=== PATIENT | male | born 1985 | race Hispanic/Latino ===

== ENCOUNTER 2018-03-08 10:03 | Inpatient (IN) | payer OTHER ==
[~2018-03-08] VITALS: Ht 160 cm; Wt 48.9 kg
[2018-03-08 10:49] LABS: BASOPHILS % (AUTO) 0.2 % (0.0-5.0); EOSINOPHILS % (AUTO) 4.8 % (0.0-8.0); HEMATOCRIT 45.1 % (42-54); LYMPHOCYTES % (AUTO) 22.4 % (21.0-51.0); MEAN CORPUSCULAR HEMOGLOBIN 30.5 pg (27.0-33.0); MEAN CORPUSCULAR HGB CONC 34.3 g/dL (32.0-36.0); MONOCYTES % (AUTO) 6.1 % (3.0-13.0); NEUTROPHILS % (AUTO) 66.5 % (40.0-77.0); PLATELET COUNT (AUTO) 213 K/uL (130-400); RED BLOOD CELL COUNT(AUTO) 5.07 MIL/uL (4.50-6.20); RED CELL DISTRIBUTION WIDTH 12.7 % (11.0-15.5); WHITE BLOOD COUNT (AUTO) 8.2 K/uL (4.8-10.8)
[2018-03-08 10:58] LABS: BILIRUBIN,TOTAL 0.3 mg/dL (0.2-1.0); CREATININE 0.7 mg/dL (0.5-1.5); MAGNESIUM 1.3 mg/dL (1.80-2.40); TOTAL PROTEIN, SERUM 6.1 g/dL (6.0-8.3)
[2018-03-08 11:01] LABS: INR 0.94 (0.85-1.15); PARTIAL THROMBOPLASTIN TIME 32.6 SEC (26.3-35.5); PROTHROMBIN TIME 9.9 SEC (9.6-11.6)
[2018-03-08 11:02] LABS: POTASSIUM 1.5 mmol/L (3.5-5.1)
[2018-03-08] MEDS ORDERED: ONDANSETRON HCL 4 MG/2 ML VIAL ONE (11:06)
[2018-03-08] MEDS ORDERED: POTASSIUM BICARB/CIT AC 25 MEQ TABLET.EFF ONE (11:06)
[2018-03-08] MEDS ORDERED: MAGNESIUM 2GM PREMIX 50ML 50 ML IV ONE (11:10)
[2018-03-08 11:16] LABS: AMPHET/METH SCREEN,URINE NEGATIVE (NEGATIVE); BARBITURATE SCREEN, URINE NEGATIVE (NEGATIVE); BENZODIAZEPINES SCREEN,URINE NEGATIVE (NEGATIVE); CANNABINOID SCREEN,URINE POSITIVE (NEGATIVE); COCAINE SCREEN,URINE NEGATIVE (NEGATIVE); OPIATE SCREEN,URINE NEGATIVE (NEGATIVE); PHENCYCLIDINE SCREEN,URINE NEGATIVE (NEGATIVE)
[2018-03-08 11:23] LABS: APPEARANCE,URINE Clear (CLEAR); BILIRUBIN,URINE Negative (NEGATIVE); COLOR,URINE Yellow (YELLOW); GLUCOSE, URINE (UA) 500 mg/dL (NEGATIVE); KETONES,URINE Negative (NEGATIVE); LEUKOCYTE ESTERASE ,URINE Negative (NEGATIVE); NITRATE,URINE Negative (NEGATIVE); OCCULT BLOOD,URINE Negative (NEGATIVE); PROTEIN,URINE Negative (NEGATIVE)
[2018-03-08 11:44] LABS: BACTERIA,URINE Rare /HPF (None Seen); RBC,URINE None Seen /HPF (0-1); SQUAMOUS EPITHELIAL CELL,UR Rare /HPF (0-2)
[2018-03-08 11:47] LABS: ERYTHROCYTE SEDIMENTATION RATE 2 MM/HR (0-15)
[2018-03-08] MEDS ORDERED: POTASSIUM CHLORIDE 40 MEQ in SODIUM CHLORIDE 0.9% 1000ML 1,000 ML IV SCH (13:00)
[2018-03-08 14:00] VITALS: BP 127/65
[2018-03-08] MEDS ORDERED: POTASSIUM BICARB/CIT AC 25 MEQ TABLET.EFF PO SCH (15:15)
[2018-03-08] MEDS ORDERED: TEMAZEPAM 15 MG CAPSULE PO PRN (15:30)
[2018-03-08] MEDS: POTASSIUM BICARB/CIT AC 25 MEQ TABLET.EFF PO SCH ×2 (15:30→20:32)
[2018-03-08 16:47] VITALS: BP 134/76
[2018-03-08] MEDS ORDERED: POTASSIUM BICARB/CIT AC 25 MEQ TABLET.EFF PO ONE (17:30)
[2018-03-08 20:00] VITALS: BP 128/85
== END 2018-03-08 20:40 | disposition left against medical advice (07) | DRG 641 ==
LOC: EDH 10:03 → EDHIP 10:04 → 3AH 14:03
PROVIDERS: ADMIT Internal Medicine; ATTEND Internal Medicine
DX: E87.6 Hypokalemia (principal); F12.90 Cannabis use, unspecified, uncomplicated; E83.42 Hypomagnesemia; F19.10 Other psychoactive substance abuse, uncomplicated; F17.290 Nicotine dependence, other tobacco product, uncomplicated; Z71.89 Other specified counseling; Z83.3 Family history of diabetes mellitus
CPT/HCPCS: 36415; 72148; 80053; 80305; 81001; 83735; 84132; 85025; 85610; 85651; 85730; 86140; 99291; J2405; J3475; J3480; J7030

== ENCOUNTER 2018-09-09 22:52 | Emergency (ER) | payer SELFPAY ==
[2018-09-09] MEDS ORDERED: ONDANSETRON HCL 4 MG/2 ML VIAL ONE (23:19)
[2018-09-09] MEDS ORDERED: FAMOTIDINE/PF 20 MG/2 ML VIAL IV ONE (23:20)
[2018-09-09] MEDS ORDERED: DiphenhydrAMINE HCL 50 MG/ML VIAL ONE (23:31)
[2018-09-09] MEDS ORDERED: HALOPERIDOL LACTATE 5 MG/ML VIAL ONE (23:32)
[2018-09-09 23:44] LABS: BILIRUBIN,URINE Negative (NEGATIVE); COLOR,URINE Yellow (YELLOW); GLUCOSE, URINE (UA) Negative (NEGATIVE); KETONES,URINE 40 mg/dL (NEGATIVE); LEUKOCYTE ESTERASE ,URINE Moderate (NEGATIVE); NITRATE,URINE Negative (NEGATIVE); OCCULT BLOOD,URINE Negative (NEGATIVE); PH,URINE 7.5 (5.0-8.0); PROTEIN,URINE Negative (NEGATIVE)
[2018-09-09 23:46] LABS: BASOPHILS % (AUTO) 0.3 % (0.0-5.0); EOSINOPHILS % (AUTO) 0.5 % (0.0-8.0); LYMPHOCYTES % (AUTO) 17.5 % (21.0-51.0); MEAN CORPUSCULAR HEMOGLOBIN 29.7 pg (27.0-33.0); MEAN CORPUSCULAR HGB CONC 33.7 g/dL (32.0-36.0); MEAN CORPUSCULAR VOLUME 88.1 fL (79-99); MONOCYTES % (AUTO) 2.4 % (3.0-13.0); NEUTROPHILS % (AUTO) 79.3 % (40.0-77.0); PLATELET COUNT (AUTO) 254 K/uL (130-400); RED BLOOD CELL COUNT(AUTO) 4.99 MIL/uL (4.50-6.20); RED CELL DISTRIBUTION WIDTH 12.6 % (11.0-15.5); WHITE BLOOD COUNT (AUTO) 7.2 K/uL (4.8-10.8)
[2018-09-09 23:47] LABS: CARBON DIOXIDE 30 mmol/L (21-32); CHLORIDE 103 mmol/L (101-111); CREATININE 0.6 mg/dL (0.5-1.5); GLOMERULAR FILTR. RATE CALC 166 mL/min (>60); GLUCOSE,RANDOM 112 mg/dL (70-105); POTASSIUM 3.5 mmol/L (3.5-5.1); SODIUM SERUM 140 mmol/L (136-145); UREA NITROGEN, BLOOD 12 mg/dL (7-18)
[2018-09-09 23:51] LABS: ALANINE AMINOTRANSFERASE 32 U/L (12-78); ALBUMIN 3.6 g/dL (3.5-5.0); ALCOHOL, BLOOD < 3 mg/dL (0-10); ASPARTATE AMINOTRANSFERASE 27 U/L (10-37); BILIRUBIN,TOTAL 0.5 mg/dL (0.2-1.0); LIPASE 61 U/L (114-286); TOTAL PROTEIN, SERUM 6.3 g/dL (6.0-8.3)
[2018-09-09 23:52] LABS: AMPHET/METH SCREEN,URINE NEGATIVE (NEGATIVE); BARBITURATE SCREEN, URINE NEGATIVE (NEGATIVE); BENZODIAZEPINES SCREEN,URINE NEGATIVE (NEGATIVE); CANNABINOID SCREEN,URINE POSITIVE (NEGATIVE); COCAINE SCREEN,URINE NEGATIVE (NEGATIVE); OPIATE SCREEN,URINE NEGATIVE (NEGATIVE); PHENCYCLIDINE SCREEN,URINE NEGATIVE (NEGATIVE)
[2018-09-10 00:04] LABS: APPEARANCE,URINE CLOUDY (CLEAR)
[2018-09-10 00:05] LABS: AMORPHOUS SEDIMENT,UR Many /LPF (None Seen); BACTERIA,URINE Rare /HPF (None Seen); RBC,URINE 0-1 /HPF (0-1); SQUAMOUS EPITHELIAL CELL,UR Rare /HPF (0-2)
== END 2018-09-10 03:29 | disposition home or self-care (01) ==
LOC: EDH 22:52
DX: G43.A0 Cyclical vomiting, in migraine, not intractable (principal); E86.0 Dehydration; G89.29 Other chronic pain; R10.13 Epigastric pain; F12.10 Cannabis abuse, uncomplicated; Z72.0 Tobacco use
CPT/HCPCS: 36415; 80053; 80305; 81001; 83690; 85025; 93005; 96361; 96372; 96374; 96375; 99284; G0480; J1200; J1630; J2405; J3490

== ENCOUNTER 2019-11-11 08:24 | Emergency (ER) | payer SELFPAY ==
[2019-11-11 08:44] LABS: BASOPHILS % (AUTO) 0.2 % (0.0-5.0); EOSINOPHILS % (AUTO) 1.2 % (0.0-8.0); HEMATOCRIT 46.5 % (42-54); LYMPHOCYTES % (AUTO) 38.7 % (21.0-51.0); MEAN CORPUSCULAR HEMOGLOBIN 28.7 pg (27.0-33.0); MEAN CORPUSCULAR HGB CONC 34.6 g/dL (32.0-36.0); MEAN CORPUSCULAR VOLUME 82.9 fL (79-99); MONOCYTES % (AUTO) 11.8 % (3.0-13.0); NEUTROPHILS % (AUTO) 47.9 % (40.0-77.0); PLATELET COUNT (AUTO) 275 K/uL (130-400); RED BLOOD CELL COUNT(AUTO) 5.61 MIL/uL (4.50-6.20); RED CELL DISTRIBUTION WIDTH 11.9 % (11.0-15.5); WHITE BLOOD COUNT (AUTO) 5.1 K/uL (4.8-10.8)
[2019-11-11] MEDS ORDERED: MAG HYDROX/AL HYDROX/SIMETH ES 30 ML SUSP UDCUP ONE (08:49)
[2019-11-11] MEDS ORDERED: LIDOCAINE HCL 2% VISCOUS 15 ML UDCUP ONE (08:49)
[2019-11-11 08:52] LABS: CREATININE 0.5 mg/dL (0.5-1.5); POTASSIUM 3.5 mmol/L (3.5-5.1)
[2019-11-11 08:59] LABS: BILIRUBIN,TOTAL 0.6 mg/dL (0.2-1.0)
[2019-11-11 09:04] LABS: APPEARANCE,URINE Clear (CLEAR); BILIRUBIN,URINE Negative (NEGATIVE); COLOR,URINE Yellow (YELLOW); GLUCOSE, URINE (UA) Negative (NEGATIVE); KETONES,URINE Negative (NEGATIVE); LEUKOCYTE ESTERASE ,URINE Trace (NEGATIVE); NITRATE,URINE Negative (NEGATIVE); OCCULT BLOOD,URINE Negative (NEGATIVE); PH,URINE 7.5 (5.0-8.0); PROTEIN,URINE Negative (NEGATIVE)
[2019-11-11 09:11] LABS: AMPHET/METH SCREEN,URINE NEGATIVE (NEGATIVE); BARBITURATE SCREEN, URINE NEGATIVE (NEGATIVE); BENZODIAZEPINES SCREEN,URINE NEGATIVE (NEGATIVE); CANNABINOID SCREEN,URINE POSITIVE (NEGATIVE); COCAINE SCREEN,URINE NEGATIVE (NEGATIVE); OPIATE SCREEN,URINE NEGATIVE (NEGATIVE); PHENCYCLIDINE SCREEN,URINE NEGATIVE (NEGATIVE)
[2019-11-11 09:21] LABS: BACTERIA,URINE None Seen /HPF (None Seen); RBC,URINE None Seen /HPF (0-1); SQUAMOUS EPITHELIAL CELL,UR None Seen /HPF (0-2); WBC,URINE 0-1 /HPF (0-1)
== END 2019-11-11 10:45 | disposition home or self-care (01) ==
LOC: EDH 08:24
DX: G89.29 Other chronic pain (principal); R10.13 Epigastric pain; R11.2 Nausea with vomiting, unspecified; F12.10 Cannabis abuse, uncomplicated
CPT/HCPCS: 36415; 76705; 80053; 80305; 81001; 82150; 83690; 85025; 99284; G0480

== ENCOUNTER 2021-05-06 13:12 | Inpatient (IN) | payer SELFPAY ==
[~2021-05-06] VITALS: Ht 160 cm; Wt 45.4 kg
[2021-05-06] MEDS ORDERED: ZOSYN 3.375GM+NS 50ML 50 ML IV STA (13:21)
[2021-05-06] MEDS ORDERED: [UNRECOGNIZED DRUG - OTHER] IV ONE (13:30)
[2021-05-06] MEDS ORDERED: ASPIRIN 325MG TAB PO ONE (13:30)
[2021-05-06] MEDS ORDERED: ACETAMINOPHEN 500 MG TABLET PO ONE (13:30)
[2021-05-06 13:42] LABS: BASOPHILS % (AUTO) 0.1 % (0.0-5.0); EOSINOPHILS % (AUTO) 0.2 % (0.0-8.0); HEMATOCRIT 48.1 % (42-54); LYMPHOCYTES % (AUTO) 19.8 % (21.0-51.0); MEAN CORPUSCULAR HGB CONC 34.1 g/dL (32.0-36.0); MEAN CORPUSCULAR VOLUME 85.1 fL (79-99); MONOCYTES % (AUTO) 10.6 % (3.0-13.0); NEUTROPHILS % (AUTO) 69.1 % (40.0-77.0); PLATELET COUNT (AUTO) 280 K/uL (130-400); RED BLOOD CELL COUNT(AUTO) 5.65 MIL/uL (4.50-6.20); RED CELL DISTRIBUTION WIDTH 12.9 % (11.0-15.5); WHITE BLOOD COUNT (AUTO) 8.4 K/uL (4.8-10.8)
[2021-05-06] MEDS ORDERED: 0.9%NACL 50ML 50 ML IV ONE (13:43)
[2021-05-06 13:57] LABS: INR 1.2 (0.85-1.15); PROTHROMBIN TIME 12.9 SEC (9.6-11.6)
[2021-05-06 13:59] LABS: ALBUMIN 4.2 g/dL (3.5-5.0); BILIRUBIN,TOTAL 0.7 mg/dL (0.2-1.0); CREATININE 0.9 mg/dL (0.5-1.5); MAGNESIUM 2.7 mg/dL (1.80-2.40); PARTIAL THROMBOPLASTIN TIME 31.3 SEC (26.3-35.5); POTASSIUM 4.2 mmol/L (3.5-5.1); TOTAL PROTEIN, SERUM 7.5 g/dL (6.0-8.3)
[2021-05-06 14:08] LABS: APPEARANCE,URINE Clear (CLEAR); BILIRUBIN,URINE Negative (NEGATIVE); COLOR,URINE Yellow (YELLOW); GLUCOSE, URINE (UA) Negative (NEGATIVE); KETONES,URINE >=80 mg/dL (NEGATIVE); LEUKOCYTE ESTERASE ,URINE Small (NEGATIVE); NITRATE,URINE Negative (NEGATIVE); OCCULT BLOOD,URINE Negative (NEGATIVE); PH,URINE 5.5 (5.0-8.0); PROTEIN,URINE Negative (NEGATIVE); UROBILINOGEN,URINE 0.2 mg/dL (0.2-1.0)
[2021-05-06 14:15] LABS: AMPHET/METH SCREEN,URINE NEGATIVE (NEGATIVE); BARBITURATE SCREEN, URINE NEGATIVE (NEGATIVE); BENZODIAZEPINES SCREEN,URINE NEGATIVE (NEGATIVE); CANNABINOID SCREEN,URINE POSITIVE (NEGATIVE); COCAINE SCREEN,URINE NEGATIVE (NEGATIVE); OPIATE SCREEN,URINE NEGATIVE (NEGATIVE); PHENCYCLIDINE SCREEN,URINE NEGATIVE (NEGATIVE)
[2021-05-06 14:24] LABS: B-TYPE NATRIURETIC PEPTIDE 7 pg/mL (0-100)
[2021-05-06 14:28] LABS: BACTERIA,URINE Few /HPF (None Seen); RBC,URINE 0-1 /HPF (0-1); SQUAMOUS EPITHELIAL CELL,UR Few /HPF (0-2)
[2021-05-06] MEDS ORDERED: 0.9%NACL 1000ML 1,000 ML IV ONE (15:00)
[2021-05-06] MEDS ORDERED: ADENOSINE 6MG VIAL IV ONE ×3 (15:49→17:00)
[2021-05-06] MEDS ORDERED: IOHEXOL-350 75 ML VIAL IV ONE (16:15)
[2021-05-06] MEDS: 0.9%NACL 1000ML 1,000 ML IV SCH ×2 (19:00→23:50)
[2021-05-06] MEDS ORDERED: ACETAMINOPHEN 325 MG TAB PO PRN ×2 (19:00)
[2021-05-06] MEDS ORDERED: ONDANSETRON 4MG INJ IV PRN (19:00)
[2021-05-06] MEDS ORDERED: NITROGLYCERIN 0.4 MG SL TAB SL PRN (19:00)
[2021-05-06 19:05] LABS: HEMOGLOBIN A1C 5.7 % (4.0-6.0)
[2021-05-06] MEDS ORDERED: 0.9%NACL 1000ML 1,000 ML IV SCH (19:30)
[2021-05-06] MEDS ORDERED: METOPROLOL TARTRATE 1 MG/ML 5ML VIAL IV ONE ×4 (19:30→22:30)
[2021-05-06 19:52] LABS: THYROID STIMULATING HORMONE < 0.01 uIU/mL (0.36-3.74)
[2021-05-06] MEDS: ZOSYN 3.375GM +NS 50ML IV SCH (21:41)
[2021-05-06] MEDS: FAMOTIDINE 20MG TAB PO SCH (21:41)
[2021-05-06 23:15] VITALS: BP 140/83
[2021-05-07] VITALS (8 sets, daily range): BP systolic 136–151; BP diastolic 63–81
[2021-05-07] MEDS: CLINDAMYCIN IVPB 600MG/50ML 50 ML IV SCH ×2 (01:01→10:01)
[2021-05-07 04:09] LABS: BASOPHILS % (AUTO) 0.1 % (0.0-5.0); HEMATOCRIT 36.3 % (42-54); LYMPHOCYTES % (AUTO) 17.1 % (21.0-51.0); MEAN CORPUSCULAR HEMOGLOBIN 28.6 pg (27.0-33.0); MEAN CORPUSCULAR HGB CONC 33.1 g/dL (32.0-36.0); MEAN CORPUSCULAR VOLUME 86.4 fL (79-99); MONOCYTES % (AUTO) 6.6 % (3.0-13.0); PLATELET COUNT (AUTO) 195 K/uL (130-400); RED CELL DISTRIBUTION WIDTH 13.2 % (11.0-15.5); WHITE BLOOD COUNT (AUTO) 8.4 K/uL (4.8-10.8)
[2021-05-07 04:35] LABS: ALANINE AMINOTRANSFERASE 30 U/L (12-78); ALBUMIN 2.6 g/dL (3.5-5.0); ASPARTATE AMINOTRANSFERASE 23 U/L (10-37); BILIRUBIN,TOTAL 0.8 mg/dL (0.2-1.0); CARBON DIOXIDE 22 mmol/L (21-32); CHLORIDE 109 mmol/L (101-111); CHOLESTEROL 71 mg/dL (<200); CREATINE KINASE, TOTAL 65 U/L (21-232); CREATININE 0.7 mg/dL (0.5-1.5); GLOMERULAR FILTR. RATE CALC 137 mL/min (>60); GLUCOSE,RANDOM 110 mg/dL (70-105); HDL CHOLESTEROL 27 mg/dL (29-71); LDL DIRECT 31 mg/dL (0-99); MYOGLOBIN 31 ng/mL (10-92); SODIUM SERUM 143 mmol/L (136-145); TOTAL PROTEIN, SERUM 4.8 g/dL (6.0-8.3); TRIGLYCERIDES 88 mg/dL (30-200); UREA NITROGEN, BLOOD 22 mg/dL (7-18)
[2021-05-07] MEDS ORDERED: METOPROLOL TARTRATE 1 MG/ML 5ML VIAL IV ONE (05:00)
[2021-05-07 05:03] LABS: THYROID STIMULATING HORMONE < 0.01 uIU/mL (0.36-3.74)
[2021-05-07] MEDS: ZOSYN 3.375GM +NS 50ML IV SCH ×3 (05:24→22:00)
[2021-05-07] MEDS ORDERED: CALCIUM GLUC 1GM 2 GM in 0.9%NACL 100ML 100 ML IV SCH (06:00)
[2021-05-07] MEDS: FAMOTIDINE 20MG TAB PO SCH ×2 (10:00→22:00)
[2021-05-07] MEDS: ENOXAPARIN SODIUM 30 MG/0.3 ML SQ SCH (10:01)
[2021-05-07] MEDS: 0.9%NACL 1000ML 1,000 ML IV SCH ×2 (10:01→18:04)
[2021-05-07] MEDS: METOPROLOL TARTRATE 25 MG TAB PO SCH ×2 (10:01→22:00)
[2021-05-08] VITALS: BP 165/84
[2021-05-08 04:00] VITALS: BP 139/80
[2021-05-08] MEDS: ZOSYN 3.375GM +NS 50ML IV SCH (05:54)
[2021-05-08 07:46] VITALS: BP 151/73
[2021-05-08 08:38] LABS: BASOPHILS % (AUTO) 0.2 % (0.0-5.0); EOSINOPHILS % (AUTO) 14.8 % (0.0-8.0); HEMATOCRIT 35.4 % (42-54); LYMPHOCYTES % (AUTO) 31.5 % (21.0-51.0); MEAN CORPUSCULAR HEMOGLOBIN 28.5 pg (27.0-33.0); MEAN CORPUSCULAR HGB CONC 33.1 g/dL (32.0-36.0); MEAN CORPUSCULAR VOLUME 86.3 fL (79-99); MONOCYTES % (AUTO) 5.8 % (3.0-13.0); NEUTROPHILS % (AUTO) 47.5 % (40.0-77.0); PLATELET COUNT (AUTO) 164 K/uL (130-400); RED CELL DISTRIBUTION WIDTH 12.9 % (11.0-15.5); WHITE BLOOD COUNT (AUTO) 5.3 K/uL (4.8-10.8)
[2021-05-08 08:58] LABS: ALBUMIN 2.6 g/dL (3.5-5.0); BILIRUBIN,TOTAL 0.6 mg/dL (0.2-1.0); CREATININE 0.7 mg/dL (0.5-1.5); POTASSIUM 3.4 mmol/L (3.5-5.1); TOTAL PROTEIN, SERUM 4.9 g/dL (6.0-8.3)
[2021-05-08] MEDS ORDERED: METO25 PO (08:58)
[2021-05-08] MEDS ORDERED: CEFU500T67 PO (08:58)
[2021-05-08] MEDS: ENOXAPARIN SODIUM 30 MG/0.3 ML SQ SCH (10:42)
[2021-05-08] MEDS: METOPROLOL TARTRATE 25 MG TAB PO SCH (10:42)
[2021-05-08] MEDS: FAMOTIDINE 20MG TAB PO SCH (10:43)
[2021-05-08 11:38] VITALS: BP 151/82
== END 2021-05-08 12:37 | disposition home or self-care (01) | DRG 872 ==
LOC: EDH 13:12 → EDHIP 13:13 → 4CH 21:45
PROVIDERS: ADMIT Internal Medicine; ATTEND Internal Medicine
DX: A41.9 Sepsis, unspecified organism (principal); I47.1 Supraventricular tachycardia; E44.0 Moderate protein-calorie malnutrition; Z68.1 Body mass index [BMI] 19.9 or less, adult; G93.49 Other encephalopathy; E78.2 Mixed hyperlipidemia; Z20.822 Contact with and (suspected) exposure to COVID-19; I10 Essential (primary) hypertension; E86.0 Dehydration; F19.10 Other psychoactive substance abuse, uncomplicated; F12.10 Cannabis abuse, uncomplicated; E86.1 Hypovolemia; E88.09 Other disorders of plasma-protein metabolism, not elsewhere classified; K76.0 Fatty (change of) liver, not elsewhere classified; Z82.3 Family history of stroke; Z83.3 Family history of diabetes mellitus; Z82.5 Family history of asthma and other chronic lower respiratory diseases
CPT/HCPCS: 36415; 70450; 71046; 71275; 80053; 80061; 80305; 81001; 82330; 82550; 83036; 83605; 83690; 83735; 83874; 83880; 84145; 84443; 84484; 85025; 85378; 85610; 85651; 85730; 86140; 86701; 87040; 87088; 87390; 87635; 87804; 87880; 93005; 93970; 99291; C9803; G0378; J0153; J1650; J2543; J3490; J7030; Q9967

== ENCOUNTER 2022-03-09 11:13 | Emergency (ER) | payer OTHER ==
[~2022-03-09 11:13] MED LIST: CEFU500T67 PO; METO25 PO
[2022-03-09 11:38] LABS: HEMATOCRIT 43.6 % (42-54); LYMPHOCYTES % (AUTO) 11.4 % (21.0-51.0); MEAN CORPUSCULAR HEMOGLOBIN 29.2 pg (27.0-33.0); MEAN CORPUSCULAR HGB CONC 33.9 g/dL (32.0-36.0); MEAN CORPUSCULAR VOLUME 86.2 fL (79-99); MONOCYTES % (AUTO) 2.6 % (3.0-13.0); NEUTROPHILS % (AUTO) 85.9 % (40.0-77.0); PLATELET COUNT (AUTO) 241 K/uL (130-400); RED BLOOD CELL COUNT(AUTO) 5.06 MIL/uL (4.50-6.20); RED CELL DISTRIBUTION WIDTH 12.9 % (11.0-15.5); WHITE BLOOD COUNT (AUTO) 7.4 K/uL (4.8-10.8)
[2022-03-09 11:46] LABS: CARBON DIOXIDE 29 mmol/L (21-32); CHLORIDE 100 mmol/L (101-111); CREATININE 0.5 mg/dL (0.5-1.5); GLOMERULAR FILTR. RATE CALC 201 mL/min (>60); GLUCOSE,RANDOM 131 mg/dL (70-105); POTASSIUM 4.1 mmol/L (3.5-5.1); SODIUM SERUM 138 mmol/L (136-145); UREA NITROGEN, BLOOD 22 mg/dL (7-18)
[2022-03-09 12:08] LABS: ALANINE AMINOTRANSFERASE 20 U/L (12-78); ALBUMIN 3.3 g/dL (3.5-5.0); ASPARTATE AMINOTRANSFERASE 13 U/L (10-37); TOTAL PROTEIN, SERUM 6.7 g/dL (6.0-8.3)
[2022-03-09] MEDS ORDERED: ONDANSETRON 4MG INJ ONE (12:15)
[2022-03-09] MEDS ORDERED: KETOROLAC 30MG VIAL (30MG/ML) ONE (12:15)
[2022-03-09 12:30] LABS: APPEARANCE,URINE CLEAR (CLEAR); BILIRUBIN,URINE NEGATIVE (NEGATIVE); COLOR,URINE YELLOW (YELLOW); GLUCOSE, URINE (UA) NEGATIVE (NEGATIVE); KETONES,URINE 40 mg/dL (NEGATIVE); LEUKOCYTE ESTERASE ,URINE NEGATIVE Leu/uL (NEGATIVE); NITRATE,URINE NEGATIVE (NEGATIVE); OCCULT BLOOD,URINE NEGATIVE (NEGATIVE); PROTEIN,URINE 50 mg/dL (NEGATIVE); UROBILINOGEN,URINE 0.2 mg/dL (0.2-1.0)
[2022-03-09] MEDS ORDERED: KETOROLAC 30MG VIAL (30MG/ML) IVP ONE (12:30)
[2022-03-09] MEDS ORDERED: 0.9%NACL 1000ML 2,000 ML IV ONE (12:30)
[2022-03-09] MEDS ORDERED: ONDANSETRON 4MG INJ IVP ONE (12:30)
[2022-03-09 12:37] LABS: AMPHET/METH SCREEN,URINE NEGATIVE (NEGATIVE); BARBITURATE SCREEN, URINE NEGATIVE (NEGATIVE); BENZODIAZEPINES SCREEN,URINE NEGATIVE (NEGATIVE); CANNABINOID SCREEN,URINE POSITIVE (NEGATIVE); COCAINE SCREEN,URINE NEGATIVE (NEGATIVE); PHENCYCLIDINE SCREEN,URINE NEGATIVE (NEGATIVE)
[2022-03-09 12:54] LABS: BACTERIA,URINE Rare /HPF (None Seen); RBC,URINE 0-1 /HPF (0-1); SQUAMOUS EPITHELIAL CELL,UR 0-2 /HPF (0-2); WBC,URINE 0-1 /HPF (0-1)
[2022-03-09] MEDS ORDERED: ONDA4TAB10 PO (13:31)
[2022-03-09 13:52] LABS: THYROID STIMULATING HORMONE < 0.01 uIU/mL (0.36-3.74)
[2022-03-09 14:07] VITALS: BP 147/91
== END 2022-03-09 14:09 | disposition home or self-care (01) ==
LOC: EDH 11:13
DX: E86.9 Volume depletion, unspecified (principal); F12.90 Cannabis use, unspecified, uncomplicated; R11.10 Vomiting, unspecified; R10.84 Generalized abdominal pain; E03.9 Hypothyroidism, unspecified; I10 Essential (primary) hypertension; Z79.1 Long term (current) use of non-steroidal anti-inflammatories (NSAID); F17.210 Nicotine dependence, cigarettes, uncomplicated
CPT/HCPCS: 99285; 96374; 96361; 96375; 84443; 80053; 80305; 83690; 85025; 84439; 84481; 81001; 36415; 74018; 93005; J7030; J2405; J1885

== ENCOUNTER 2023-08-29 14:16 | Inpatient (IN) | payer OTHER ==
[~2023-08-29] VITALS: Ht 160 cm; Wt 44.2 kg
[~2023-08-29 14:16] MED LIST changes: +ONDA4TAB10 PO
[2023-08-29] MEDS: ONDANSETRON 4MG INJ IVP ONE (14:31)
[2023-08-29] MEDS: 0.9%NACL 1000ML 1,000 ML IV SCH (14:31)
[2023-08-29 14:43] LABS: BASOPHILS # (AUTO) 0.01 K/uL (0.00-0.20); BASOPHILS % (AUTO) 0.2 % (0.0-5.0); HEMATOCRIT 44.2 % (42-54); IMMATURE GRANULOCYTE ABSOLUTE 0.02 K/uL (0-1); LYMPHOCYTES % (AUTO) 16.5 % (21.0-51.0); MEAN CORPUSCULAR HEMOGLOBIN 28.8 pg (27.0-33.0); MEAN CORPUSCULAR HGB CONC 33.5 g/dL (32.0-36.0); MEAN CORPUSCULAR VOLUME 86.2 fL (79-99); MONOCYTES # (AUTO) 0.3 K/uL (0.1-1.0); MONOCYTES % (AUTO) 5.6 % (3.0-13.0); NEUTROPHILS # (AUTO) 4.6 K/uL (1.8-7.7); NEUTROPHILS % (AUTO) 77.4 % (40.0-77.0); PLATELET COUNT (AUTO) 279 K/uL (130-400); RED BLOOD CELL COUNT(AUTO) 5.13 MIL/uL (4.50-6.20); RED CELL DISTRIBUTION WIDTH 13.2 % (11.0-15.5); WHITE BLOOD COUNT (AUTO) 5.9 K/uL (4.8-10.8)
[2023-08-29 14:56] LABS: CREATININE 0.6 mg/dL (0.5-1.5); POTASSIUM 4.7 mmol/L (3.5-5.1)
[2023-08-29 15:01] LABS: ALBUMIN 3.7 g/dL (3.5-5.0); BILIRUBIN,TOTAL 0.7 mg/dL (0.2-1.0); TOTAL PROTEIN, SERUM 6.9 g/dL (6.0-8.3)
[2023-08-29 15:03] LABS: ALCOHOL, BLOOD < 3 mg/dL (0-10)
[2023-08-29 15:23] LABS: CREATINE KINASE, TOTAL 75 U/L (21-232)
[2023-08-29 15:44] LABS: THYROID STIMULATING HORMONE < 0.01 uIU/mL (0.36-3.74)
[2023-08-29 16:13] LABS: APPEARANCE,URINE CLEAR (CLEAR); BILIRUBIN,URINE NEGATIVE (NEGATIVE); COLOR,URINE LIGHT-YELLOW (YELLOW); GLUCOSE, URINE (UA) NEGATIVE (NEGATIVE); KETONES,URINE 150 mg/dL (NEGATIVE); LEUKOCYTE ESTERASE ,URINE 25 Leu/uL (NEGATIVE); NITRATE,URINE NEGATIVE (NEGATIVE); PROTEIN,URINE 20 mg/dL (NEGATIVE); UROBILINOGEN,URINE 0.2 mg/dL (0.2-1.0)
[2023-08-29 16:15] LABS: ADD UA MICROSCOPIC YES
[2023-08-29 16:19] LABS: SQUAMOUS EPITHELIAL CELL,UR RARE /HPF (0-2)
[2023-08-29 16:20] LABS: AMPHET/METH SCREEN,URINE POSITIVE (NEGATIVE); BARBITURATE SCREEN, URINE NEGATIVE (NEGATIVE); BENZODIAZEPINES SCREEN,URINE NEGATIVE (NEGATIVE); CANNABINOID SCREEN,URINE POSITIVE (NEGATIVE); COCAINE SCREEN,URINE NEGATIVE (NEGATIVE); OPIATE SCREEN,URINE NEGATIVE (NEGATIVE); PHENCYCLIDINE SCREEN,URINE NEGATIVE (NEGATIVE)
[2023-08-29] MEDS ORDERED: PROPRANOLOL HCL 20 MG TAB PO SCH (16:30)
[2023-08-29] MEDS: METHIMAZOLE 10 MG TAB PO ONE (16:58)
[2023-08-29] MEDS: CEFTRIAXONE 1G VIAL IVPB ONE (16:58)
[2023-08-29] MEDS ORDERED: LACTULOSE 20 GM/30 ML UDCUP PO PRN (17:00)
[2023-08-29] MEDS ORDERED: ACETAMINOPHEN 325 MG TAB PO PRN (17:00)
[2023-08-29] MEDS ORDERED: DIPHENHYDRAMINE HCL 25 MG CAPSULE PO PRN (17:00)
[2023-08-29] MEDS ORDERED: GUAIFENESIN-DM 200/20 MG 10 ML PO PRN (17:00)
[2023-08-29] MEDS ORDERED: NITROGLYCERIN 0.4 MG SL TAB SL PRN (17:00)
[2023-08-29] MEDS ORDERED: CEFTRIAXONE 1G VIAL 1 GM in 0.9%NACL 50ML 50 ML IV SCH (17:00)
[2023-08-29] MEDS ORDERED: MAG/ALUM/SIMETH 30 ML UDCUP PO PRN (17:00)
[2023-08-29] MEDS: PROPRANOLOL HCL 20 MG TAB PO ONE (17:03)
[2023-08-29] MEDS: FAMOTIDINE 20MG VIAL IV SCH (21:32)
[2023-08-29] MEDS: METHIMAZOLE 10 MG TAB PO SCH (21:33)
[2023-08-30] MEDS: ONDANSETRON 4MG INJ IV PRN (02:17)
[2023-08-30] MEDS: PROPRANOLOL HCL 20 MG TAB PO SCH ×2 (07:36→13:22)
[2023-08-30] MEDS: ENOXAPARIN SODIUM 40 MG/0.4 ML SYRINGE SQ SCH (09:13)
[2023-08-30] MEDS: ACETAMINOPHEN WITH CODEINE 1 TAB TAB PO PRN (13:36)
[2023-08-30] MEDS: CEFTRIAXONE 1G VIAL IVPB SCH (17:19)
[2023-08-30 22:55] VITALS: BP 159/77; PULSE 96; RESP 19; O2SAT 97
[2023-08-30] MEDS: HYDRALAZINE 20MG/ML VIAL IV PRN (23:25)
[2023-08-31] VITALS (8 sets, daily range): BP systolic 133–174; BP diastolic 67–114; PULSE 72–146; RESP 16–20; O2SAT 98
[2023-08-31] MEDS: METOPROLOL TARTRATE 1 MG/ML 5ML VIAL IV ONE ×2 (00:03→00:51)
[2023-08-31] MEDS ORDERED: METOPROLOL TARTRATE 25 MG TAB PO SCH (00:30)
[2023-08-31] MEDS: NS IV PRN (04:17)
[2023-08-31] MEDS: DILTIAZEM 125 MG IV PRN (04:17)
[2023-08-31] MEDS: DILTIAZEM 125MG+100 ML NS 125 ML IV ONE (04:28)
[2023-08-31] MEDS: PHARMACY COMMUNICATION MISC SCH (07:00)
[2023-09-02 17:11] LABS: C DIFFICILE TOXIN A/B Not Detected (Not Detected); ENTEROAGGREGATIVE ECOLI Detected (Not Detected); GIARDIA LAMBLIA Not Detected (Not Detected); PLESIOMONAS SHIGELOIDES Not Detected (Not Detected); SAPOVIRUS Not Detected (Not Detected); SHIGELLA/ENTEROINVASIVE E COLI Not Detected (Not Detected); VIBRIO Not Detected (Not Detected); VIBRIO CHOLERAE Not Detected (Not Detected)
== END 2023-08-31 13:20 | disposition left against medical advice (07) | DRG 644 ==
LOC: EDH 14:16 → EDHIP 14:17 → 4DH 08-30 22:25 → 2DH 08-31 03:58
PROVIDERS: ADMIT Internal Medicine; ATTEND Internal Medicine
DX: E05.00 Thyrotoxicosis with diffuse goiter without thyrotoxic crisis or storm (principal); K92.0 Hematemesis; E86.0 Dehydration; I10 Essential (primary) hypertension; I48.91 Unspecified atrial fibrillation; Z53.29 Procedure and treatment not carried out because of patient's decision for other reasons; E03.9 Hypothyroidism, unspecified; Z82.49 Family history of ischemic heart disease and other diseases of the circulatory system
CPT/HCPCS: 36415; 80053; 80305; 81001; 82270; 82550; 82948; 83690; 83735; 84436; 84439; 84443; 84480; 84481; 84484; 85025; 87088; 87324; 87507; 93005; G0378; J0360; J0696; J1650; J2405; J3490

== ENCOUNTER 2023-11-18 12:05 | Emergency (ER) | payer OTHER ==
[~2023-11-18] VITALS: Ht 170.2 cm; Wt 63.5 kg
[~2023-11-18 12:05] MED LIST changes: +ONDA-243 PO; -ONDA4TAB10 PO
[2023-11-18] MEDS: KETOROLAC 30MG VIAL (30MG/ML) IVP ONE (12:53)
[2023-11-18] MEDS: ONDANSETRON 4MG INJ IVP ONE (12:53)
[2023-11-18] MEDS: 0.9%NACL 1000ML 1,000 ML IV ONE (12:53)
[2023-11-18 13:08] LABS: BASOPHILS # (AUTO) 0.01 K/uL (0.00-0.20); BASOPHILS % (AUTO) 0.1 % (0.0-5.0); HEMATOCRIT 45.3 % (42-54); IMMATURE GRANULOCYTE ABSOLUTE 0.01 K/uL (0-1); MEAN CORPUSCULAR HEMOGLOBIN 28.6 pg (27.0-33.0); MEAN CORPUSCULAR HGB CONC 33.6 g/dL (32.0-36.0); MEAN CORPUSCULAR VOLUME 85.3 fL (79-99); MONOCYTES # (AUTO) 0.1 K/uL (0.1-1.0); MONOCYTES % (AUTO) 1.6 % (3.0-13.0); NEUTROPHILS # (AUTO) 6.5 K/uL (1.8-7.7); NEUTROPHILS % (AUTO) 85.2 % (40.0-77.0); PLATELET COUNT (AUTO) 331 K/uL (130-400); RED BLOOD CELL COUNT(AUTO) 5.31 MIL/uL (4.50-6.20); RED CELL DISTRIBUTION WIDTH 13.8 % (11.0-15.5); WHITE BLOOD COUNT (AUTO) 7.6 K/uL (4.8-10.8)
[2023-11-18 13:23] LABS: CREATININE 0.5 mg/dL (0.5-1.3); POTASSIUM 3.5 mmol/L (3.5-5.1)
[2023-11-18 13:24] LABS: ALBUMIN 3.3 g/dL (3.5-5.0); BILIRUBIN,TOTAL 0.6 mg/dL (0.2-1.0)
[2023-11-18 16:56] VITALS: BP 158/86; PULSE 82; RESP 18; O2SAT 99
[2023-11-18] MEDS ORDERED: ONDA-243 PO (17:51)
== END 2023-11-18 18:35 | disposition home or self-care (01) ==
LOC: EDH 12:05
DX: A08.4 Viral intestinal infection, unspecified (principal); R11.2 Nausea with vomiting, unspecified; R73.9 Hyperglycemia, unspecified; I10 Essential (primary) hypertension; F17.200 Nicotine dependence, unspecified, uncomplicated; E03.9 Hypothyroidism, unspecified
CPT/HCPCS: 99283; 96374; 96361; 84443; 80053; 83690; 85025; 36415; J7030; J2405

== ENCOUNTER 2024-02-27 11:42 | Emergency (ER) | payer MEDICAID ==
[~2024-02-27] VITALS: Ht 162.6 cm; Wt 60.8 kg
[2024-02-27 12:12] LABS: BASOPHILS # (AUTO) 0.01 K/uL (0.00-0.20); BASOPHILS % (AUTO) 0.1 % (0.0-5.0); EOSINOPHILS # (AUTO) 0.02 K/uL (0.00-0.70); EOSINOPHILS % (AUTO) 0.3 % (0.0-8.0); HEMATOCRIT 45.8 % (42-54); IMMATURE GRANULOCYTE ABSOLUTE 0.02 K/uL (0-1); LYMPHOCYTES # (AUTO) 1.2 K/uL (1.0-4.8); LYMPHOCYTES % (AUTO) 16.9 % (21.0-51.0); MEAN CORPUSCULAR HEMOGLOBIN 29.2 pg (27.0-33.0); MEAN CORPUSCULAR HGB CONC 33.8 g/dL (32.0-36.0); MEAN CORPUSCULAR VOLUME 86.4 fL (79-99); MONOCYTES # (AUTO) 0.2 K/uL (0.1-1.0); MONOCYTES % (AUTO) 3.3 % (3.0-13.0); NEUTROPHILS # (AUTO) 5.7 K/uL (1.8-7.7); NEUTROPHILS % (AUTO) 79.1 % (40.0-77.0); PLATELET COUNT (AUTO) 255 K/uL (130-400); RED CELL DISTRIBUTION WIDTH 12.7 % (11.0-15.5); WHITE BLOOD COUNT (AUTO) 7.2 K/uL (4.8-10.8)
[2024-02-27 12:17] LABS: APPEARANCE,URINE CLEAR (CLEAR); BILIRUBIN,URINE NEGATIVE (NEGATIVE); COLOR,URINE LIGHT-YELLOW (YELLOW); GLUCOSE, URINE (UA) 150 mg/dL (NEGATIVE); KETONES,URINE 150 mg/dL (NEGATIVE); LEUKOCYTE ESTERASE ,URINE 25 Leu/uL (NEGATIVE); NITRATE,URINE NEGATIVE (NEGATIVE); PH,URINE 5.5 (5.0-8.0); PROTEIN,URINE 30 mg/dL (NEGATIVE); UROBILINOGEN,URINE 0.2 mg/dL (0.2-1.0)
[2024-02-27 12:20] LABS: ADD UA MICROSCOPIC YES
[2024-02-27 12:23] LABS: CREATININE 0.7 mg/dL (0.5-1.3); POTASSIUM 3.8 mmol/L (3.5-5.1)
[2024-02-27] MEDS: [UNRECOGNIZED DRUG - OTHER] IV ONE (12:26)
[2024-02-27 12:30] LABS: BACTERIA,URINE RARE /HPF (None Seen); MUCUS,URINE RARE LPF (None Seen); SQUAMOUS EPITHELIAL CELL,UR RARE /HPF (0-2)
[2024-02-27 13:19] VITALS: BP 144/71; PULSE 124; RESP 17; TEMP 98.7; O2SAT 99
== END 2024-02-27 13:41 | disposition home or self-care (01) ==
LOC: EDH 11:42
DX: F19.10 Other psychoactive substance abuse, uncomplicated (principal); F12.90 Cannabis use, unspecified, uncomplicated; E86.9 Volume depletion, unspecified; R11.2 Nausea with vomiting, unspecified; R00.0 Tachycardia, unspecified; R53.1 Weakness; E11.9 Type 2 diabetes mellitus without complications; I10 Essential (primary) hypertension; E05.90 Thyrotoxicosis, unspecified without thyrotoxic crisis or storm; F17.200 Nicotine dependence, unspecified, uncomplicated; Z79.899 Other long term (current) drug therapy; Z79.2 Long term (current) use of antibiotics; Z98.890 Other specified postprocedural states
CPT/HCPCS: 99283; 96360; 80048; 85025; 87086; 82948; 82010; 81001; 36415; J7030

== ENCOUNTER 2025-05-01 08:31 | Inpatient (IN) | payer BC, MEDICAID, OTHER ==
[~2025-05-01] VITALS: Ht 160 cm; Wt 49.5 kg
--- NOTE | 2025-05-01 08:35 | ERN ---
General Chief Complaint: Abdominal Pain Stated Complaint: ABD PAIN Time Seen by MD: 08:33 Source: patient History of Present Illness Initial Comments Patient is a 39-year-old male coming in complaining of abdominal pain nauseousness and vomiting. Per patient this has been ongoing for a couple of days. Patient was evaluated another hospital and states that he still feels a 71 in his here for further evaluation. Allergies: Coded Allergies: No Known Drug Allergies (Verified Allergy, Unknown, 03/08/18) Home Meds Active Scripts Ondansetron (Ondansetron Odt) 4 Mg Tab.rapdis, 4 MG PO Q6HPRN PRN for nausea, #16 TAB 0 Refills Prov:ANA DE LOS SANTOS 11/18/23 Ondansetron (Ondansetron Odt) 4 Mg Tab.rapdis, 4 MG PO TIDP PRN for NAUSEA/VOMITING, #12 TAB 0 Refills Prov:ADRIA SANCHEZ MD 03/09/22 Cefuroxime Axetil (Cefuroxime) 500 Mg Tablet, 500 MG PO BID for 7 Days, #14 TAB 0 Refills Prov:DIMITRIS PIMENTEL Jr., MD 05/08/21 Metoprolol Tartrate (Lopressor) 25 Mg Tab, 25 MG PO BID for 30 Days, #60 TAB 3 Refills Prov:DIMITRIS PIMENTEL Jr., MD 05/08/21 Past Medical History Past Medical History: Hypertension, Hyperthyroid Medical History Other: CHEST TUBE Past Surgical History: None Surgical History Other: RIGHT LUNG Social History Social History: Smokers, Drugs, Other ROS Dictation CONSTITUTIONAL: No chills, no fever, no weakness, no diaphoresis, no malaise. HEAD/FACE: No signs of trauma. EENT: No eye pain, no blurred vision, no tearing, no double vision, no ear pain, no ear discharge, no nose pain, no nasal congestion, no throat pain, no throat swelling, no mouth pain. RESPIRATORY: No cough, no orthopnea, no SOB, no stridor, no wheezing. CARDIOVASCULAR: No chest pain, no edema, no palpitations, no syncope. GASTROINTESTINAL/ABDOMINAL: abdominal pain, no constipation, no diarrhea, nausea, vomiting. GENITOURINARY: No abnormal discharge, no dysuria, no frequent urination, no hematuria. No complaints of pain in the genitals. MUSCULOSKELETAL: No back pain, no gout, no joint pain, no joint swelling, no muscle pain, no muscle stiffness, no neck pain. INTEGUMENTARY: No change in color, no change in hair/nails, no dryness, no lesion, no lumps, no rash. NEUROLOGICAL/PSYCH: No anxiety, not depressed, no emotional problem, no headache, no numbness, no pre-existing deficit, no history of seizures, no tremors, no weakness. HEMATOLOGIC/LYMPHATIC: Not anemic, no history of blood clots, no apparent bleeding, no bruising, glands not swollen. All Systems Negative, Except as Noted. Physical Exam Physical Exam Dictation VITAL SIGNS: Reviewed. GENERAL APPEARANCE: Alert, oriented x3, no acute distress, obese. HEAD AND FACE: Non-traumatic. EYES: PERRL, pink conjunctivas, eyelid no trauma, anterior chamber clear. EARS: Pinnas intact and no signs of trauma or erythema. Ear canals clear and no discharge. TMs no erythema. NOSE: No discharge, no bleeding. OROPHARYNX: Mouth normal, teeth no caries, tongue pink. Pharynx clear, no erythema. Tonsils no exudates, no abscesses noted. Mucous membrane moist. NECK: Supple, non-tender, no thyromegaly, no masses, no JVD, no bruits. BREAST: Deferred. CHEST: No tenderness, no crepitus, no paradoxical movement, no retractions. LUNGS: Clear, well-ventilated, symmetric, no rales, no wheezing, no rhonchi, no stridor, good breath sounds bilaterally. HEART: Regular rate, regular rhythm, no murmur, no gallops. VASCULAR: No peripheral edema. ABDOMEN: Soft, positive bowel sounds, nondistended, no guarding, nontender, no rebound, no masses no hepatomegaly, no splenomegaly, no Durham's sign, no hernias. RECTAL: Deferred. GENITAL: Deferred. NEUROLOGICAL: Normal speech, gross motor function intact, gross sensory function intact. MUSCULOSKELETAL: Neck nontender, full range of motion, back nontender, full range of motion. EXTREMITIES: Nontender, full range of motion. SKIN: Color pink, dry, no turgor, no rash, no lacerations, no abrasions, no contusions. LYMPHATICS: Deferred. Results Laboratory and Microbiology Lab and Micro Result Laboratory Tests Test 05/01/25 08:52 White Blood Count 8.0 K/uL (4.8-10.8) Red Blood Count 5.11 MIL/uL (4.50-6.20) Hemoglobin 15.5 g/dL (14.0-18.0) Hematocrit 45.2 % (42-54) Mean Corpuscular Volume 88.5 fL (79-99) Mean Corpuscular Hemoglobin 30.3 pg (27.0-33.0) Mean Corpuscular Hemoglobin Concent 34.3 g/dL (32.0-36.0) Red Cell Distribution Width 12.6 % (11.0-15.5) Platelet Count 260 K/uL (130-400) Mean Platelet Volume 9.0 fL (7.5-10.5) Immature Granulocyte % (Auto) 0.2 % (0-1) Neutrophils (%) (Auto) 71.5 % (40.0-77.0) Lymphocytes (%) (Auto) 22.4 % (21.0-51.0) Monocytes (%) (Auto) 5.5 % (3.0-13.0) Eosinophils (%) (Auto) 0.2 % (0.0-8.0) Basophils (%) (Auto) 0.2 % (0.0-5.0) Neutrophils # (Auto) 5.7 K/uL (1.8-7.7) Lymphocytes # (Auto) 1.8 K/uL (1.0-4.8) Monocytes # (Auto) 0.4 K/uL (0.1-1.0) Eosinophils # (Auto) 0.02 K/uL (0.00-0.70) Basophils # (Auto) 0.02 K/uL (0.00-0.20) Absolute Immature Granulocyte (auto 0.02 K/uL (0-1) Nucleated Red Blood Cells 0.0 % (0.0-0.19) Urine Color LIGHT-YELLOW (YELLOW) Urine Appearance CLEAR (CLEAR) Urine pH 5.5 (5.0-8.0) Urine Specific [place] 1.025 (1.001-1.031) Urine Protein 10 mg/dL (NEGATIVE) H Urine Glucose (UA) NEGATIVE mg/dL (NEGATIVE) Urine Ketones 150 mg/dL (NEGATIVE) H Urine Occult Blood +- (TRACE) (NEGATIVE) H Urine Nitrate NEGATIVE (NEGATIVE) Urine Bilirubin NEGATIVE mg/dL (NEGATIVE) Urine Urobilinogen 0.2 mg/dL (0.2-1.0) Urine Leukocyte Esterase NEGATIVE Eduardo/uL Urine RBC 0-1 /HPF (0-1) Urine WBC 0-1 /HPF (0-1) Urine Squamous Epithelial Cells RARE /HPF (0-2) Urine Bacteria None /HPF (None Seen) Sodium Level 126 mmol/L (136-145) L Potassium Level 3.4 mmol/L (3.5-5.1) L Chloride Level 89 mmol/L (101-111) *L Carbon Dioxide Level 19 mmol/L (21-32) L Blood Urea Nitrogen 13 mg/dL (7-18) Creatinine 0.6 mg/dL (0.5-1.3) Glomerular Filtration Rate Calc 127 mL/min (>90) Random Glucose 83 mg/dL (70-105) Total Calcium 8.8 mg/dL (8.5-10.1) Total Bilirubin 1.0 mg/dL (0.2-1.0) Aspartate Amino Transf (AST/SGOT) 24 U/L (10-37) Alanine Aminotransferase (ALT/SGPT) 26 U/L (12-78) Alkaline Phosphatase 260 U/L (50-136) H Total Creatine Kinase 118 U/L (21-232) # Troponin I High Sensitivity 14 ng/L (4-75) Total Protein 6.6 g/dL (6.0-8.3) Albumin 4.0 g/dL (3.5-5.0) Lipase 11 U/L (16-77) L Urine Opiates Screen NEGATIVE (NEGATIVE) Urine Barbiturates Screen NEGATIVE (NEGATIVE) Urine Phencyclidine Screen NEGATIVE (NEGATIVE) Urine Amphetamines Screen NEGATIVE (NEGATIVE) Urine Benzodiazepines Screen NEGATIVE (NEGATIVE) Urine Cocaine Screen NEGATIVE (NEGATIVE) Urine Marijuana (THC) Screen POSITIVE (NEGATIVE) H Serum Alcohol < 3 mg/dL (0-10) Labs Reviewed?: Yes EKG/XRAY/US/CT/MRI EKG Comment 05/01/2025 time 8:52 a.m. Ventricular rate 80 Sinus rhythm [place] [address] wave elevation or depression MDM MDM: Differential diagnosis: Cannabis hyperemesis syndrome, hyponatremia, hypochloremia, hypokalemia Rationale: Tests considered and ordered secondary to shared decision making include: Previous outside records reviewed: Old ER visits. Risk of complication and/or morbidity or mortality of patient management: None Medications-Per medication reconciliation Need for hospitalization: Patient does meet criteria for hospitalization. Need for emergency major/minor surgery: No There are no social concerns with this patient. Prescription drug management Prescriptions will include symptomatic care Patient's prior external medical records from other ER visits were reviewed by me as indicated. Prior testing and results from previous visits were reviewed. Prior tests were taken into account with medical decision making and resource utilization, independent historian/historians were used to obtain complete medical history. I independently interpreted the test that were performed, results were reviewed by me and considered findings on radiology if ordered. Medical management and examination interpretation discussions were had by me with other qualified healthcare professionals as indicated for the patient's care. Patient will be admitted under the care of hospitalist group ED Course Orders Procedure Category Date Status Time Cbc With Differential LAB 05/01/25 Complete 08:34 Comprehensive LAB 05/01/25 Complete Metabolic Panel 08:34 Troponin I High LAB 05/01/25 Complete Sensitivity 08:34 Urinalysis Profile LAB 05/01/25 Complete 08:34 12 Lead Ekg Tracing- EKG 05/01/25 Logged Technical 08:34 0.9%Nacl 1000ml (Ns PHA 05/01/25 Complete 1000ml) 09:00 Creatine Kinase, Total LAB 05/01/25 Complete 08:34 Lipase LAB 05/01/25 Complete 08:34 Drug Screen Urine LAB 05/01/25 Complete 08:34 Alcohol, Blood LAB 05/01/25 Complete 08:34 0.9%Nacl 1000ml (Ns PHA 05/01/25 Complete 1000ml) 10:00 Ondansetron 4mg Inj PHA 05/01/25 Verified (Zofran 4mg Inj) 10:30 Current Medications Medications (Trade) Dose Ordered Sig/Jodi Route PRN Reason Start Time Stop Time Status Last Admin Dose Admin Sodium Chloride 1,000 ml @ 0 mls/hr ONCE ONCE IV 05/01/25 09:00 05/01/25 09:02 DC 05/01/25 10:08 Sodium Chloride 1,000 ml @ 0 mls/hr ONCE ONCE IV 05/01/25 10:00 05/01/25 10:02 DC 05/01/25 10:05 Vital Signs Date Time Temp Pulse Resp B/P (MAP) Pulse Ox O2 Delivery O2 Flow Rate FiO2 05/01/25 08:57 97.9 98 24 139/80 97 Room Air* 0 21 05/01/25 08:33 97.5 106 18 132/60 98 Room Air DX & DISP Disposition: Inpatient Decision to Admit Time: 10:14 Departure Impression: Primary Impression: Drug abuse Additional Impressions: Dehydration, Cannabis hyperemesis syndrome Condition: Stable Referrals: SELF,REFERRAL (PCP) TIMMY SILVA MD May 01, 2025 08:35
[2025-05-01 09:02] LABS: IMMATURE GRANULOCYTE ABSOLUTE 0.02 K/uL (0-1); NUCLEATED RED BLOOD CELLS 0.0 % (0.0-0.19); PLATELET COUNT (AUTO) 260 K/uL (130-400); RED BLOOD CELL COUNT(AUTO) 5.11 MIL/uL (4.50-6.20); RED CELL DISTRIBUTION WIDTH 12.6 % (11.0-15.5); WHITE BLOOD COUNT (AUTO) 8.0 K/uL (4.8-10.8)
[2025-05-01 09:07] LABS: APPEARANCE,URINE CLEAR (CLEAR); GLUCOSE, URINE (UA) NEGATIVE (NEGATIVE); LEUKOCYTE ESTERASE ,URINE NEGATIVE Leu/uL (NEGATIVE); NITRATE,URINE NEGATIVE (NEGATIVE); OCCULT BLOOD,URINE +- (TRACE) (NEGATIVE)
[2025-05-01 09:08] LABS: ADD UA MICROSCOPIC YES
[2025-05-01 09:15] LABS: SQUAMOUS EPITHELIAL CELL,UR RARE /HPF (0-2)
[2025-05-01 09:19] LABS: ALCOHOL, BLOOD < 3 mg/dL (0-10); ASPARTATE AMINOTRANSFERASE 24 U/L (10-37); CREATINE KINASE, TOTAL 118 U/L (21-232); CREATININE 0.6 mg/dL (0.5-1.3); GLOMERULAR FILTR. RATE CALC 127 mL/min (>90); GLUCOSE,RANDOM 83 mg/dL (70-105); SODIUM SERUM 126 mmol/L (136-145); TOTAL PROTEIN, SERUM 6.6 g/dL (6.0-8.3); UREA NITROGEN, BLOOD 13 mg/dL (7-18)
[2025-05-01 09:29] LABS: AMPHET/METH SCREEN,URINE NEGATIVE (NEGATIVE); BARBITURATE SCREEN, URINE NEGATIVE (NEGATIVE); CANNABINOID SCREEN,URINE POSITIVE (NEGATIVE); COCAINE SCREEN,URINE NEGATIVE (NEGATIVE)
[2025-05-01] MEDS: 0.9%NACL 1000ML 1,000 ML IV ONE ×2 (10:05→10:08)
--- NOTE | 2025-05-01 10:30 | EKG ---
[facility] Test Date: 2025-05-01 Test Time: 08:52:41 Pat Name: LESLIE CALHOUN Department: ED Room: 308 Gender: M [employer]ist: [id number] : 1985 Requested By: TIMMY SILVA Order Number: [id number] Reading MD: Luann Esposito Measurements Intervals [place] Rate: 80 P: 65 MT: 128 QRS: 77 QRSD: 83 T: 72 QT: 413 QTc: 476 Interpretive Statements Sinus rhythm Nonspecific T abnrm, anterolateral leads Compared to ECG 08/30/2023 23:48:25 Atrial fibrillation no longer present Electronically Signed On 05-02-2025 12:33:21 MACHINERY MECHANIC by Luann Esposito Please click the below link to view image of tracing.
--- NOTE | 2025-05-01 10:32 | HP ---
[facility] HISTORY [facility] PHYSICAL Date of Service: May 01, 2025 Time of Service: 10:32 HISTORY OF PRESENT ILLNESS: 39-year-old male with past medical history of hyperthyroidism presented to the hospital secondary to recurrent vomiting with abdominal pain. The patient states for the past five days he has noted that he has been having episodes of nausea with vomiting. His vomit has been greenish color without any evidence of hematemesis. Denies any melena, hematochezia. He has not been able to tolerate food orally secondary to feeling nauseated. He currently does not take any medications. Denied any fever, chills, chest pain, shortness of breath, cough. Denied any dysuria, hematuria. Denied any recent travel or, new onset rash. Denied any diarrhea but has been constipated in the past few days. Secondary to non improving symptoms patient thereafter came to the hospital for further evalu ation. Labs showed white count of 8.0, hemoglobin was 15.5, platelet count was 260 K, sodium was 126, potassium was 3.4, chloride was 89, bicarb was 19 BUN was , creatinine was 0.6, blood glucose was 83, alk-phos was 260, troponin was 14 , lipase was 11 In the ER patient received NS bolus REVIEW OF SYSTEMS CONSTITUTIONAL: Denies fevers, chills, or night sweats. No unintentional weight loss reported. NEUROLOGICAL: Denies headache, amaurosis fugax, motor weakness, sensory deficit, vertigo/spinning sensation, gait abnormalities, or tremors. ENT: No hearing loss, otalgia, otorrhea, rhinitis, rhinorrhea, hoarseness, or sore throat. CARDIOVASCULAR: Denies any exertional angina, dyspnea on exertion, orthopnea, paroxysmal nocturnal dyspnea, palpitations, life-threatening arrhythmias, claudication. PULMONARY: Denies any shortness of breath, cough, phlegm/sputum, hemoptysis, pleuritic chest pain. SLEEP: Denies morning headaches, daytime somnolence or napping. Denies d ifficulty falling asleep, staying asleep, waking from sleep. Denies knowledge of snoring. GASTROINTESTINAL: Positive for abdominal pain, nausea, vomiting. Denied any hematemesis, melena, hematochezia GENITOURINARY: Denies frequency, urgency, nocturia, hematuria or incontinence (Storage/Irritative symptoms.) Low urinary stream, straining to void, urinary intermittency or hesitancy, splitting of the voiding stream, terminal dribbling. ENDOCRINOLOGIC: Denies polyuria, polydipsia, polyphagia or heat/cold intolerances. HEMATOLOGIC: Denies thrombophilia/previous clots, or coagulopathy/bleeding disorders. ONCOLOGIC: Denies personal history of malignancy. DERMATOLOGIC: Denies rashes or pruritus. PSYCHIATRIC: Denies any suicidal or homicidal ideation. Denies hallucinations. PAST MEDICAL HISTORY: History of hyperthyroidism, history of marijuana use PAST SURGICAL HISTORY: Denied any surgical history PAST SOCIAL HISTORY: Has been smoking four cigarettes a day for at least 20 years. He also uses marijuana once a week. Denied any alcohol use FAMILY HISTORY: Denied any pertinent family history Coded Allergies: No Known Drug Allergies (Verified Allergy, Unknown, 03/08/18) PHYSICAL EXAM GENERAL APPEARANCE: The patient is awake, alert, and oriented, in no acute cardiopulmonary distress. Appears anxious with episodes of frequent vomiting NEUROLOGICAL: Cranial nerves II-XII grossly intact. Motor is 5/5 in bilateral upper and lower extremities proximal to distal. No sensory deficits. HEENT: Face is symmetric. Pupils are equal and reactive. Extraocular movements are intact. NECK: Supple. No JVD. No thyromegaly. No submental, submandibular, pre- /postauricular, occipital or supraclavicular lymphadenopathy. CHEST: Normal chest expansion. No Telemetry. LUNGS: Absence of any rales, rhonchi or any wheezing. CARDIOVASCULAR: Regular. S1 and S2 normal. No appreciable rubs, murmurs or gallops. ABDOMEN: Soft, nontender, and nondistended. There is no rebound, voluntary guarding, or rigidity. : Deferred. No [place]. EXTREMITIES: Non-edematous and not cyanotic. No clubbing. Good capillary refill. SKIN: No skin breakdown. Vital Sign (Last 24 Hours) 05/01/25 08:57 Temp 97.9 Pulse 98 Resp 24 B/P (MAP) 139/80 Pulse Ox 97 O2 Delivery Room Air* O2 Flow Rate 0 FiO2 21 LABS: Laboratory: Test 05/01/25 08:52 Range/Units White Blood Count 8.0 4.8-10.8 K/uL Red Blood Count 5.11 4.50-6.20 MIL/uL Hemoglobin 15.5 14.0-18.0 g/dL Hematocrit 45.2 42-54 % Mean Corpuscular Volume 88.5 79-99 fL Mean Corpuscular Hemoglobin 30.3 27.0-33.0 pg Mean Corpuscular Hemoglobin Concent 34.3 32.0-36.0 g/dL Red Cell Distribution Width 12.6 11.0-15.5 % Platelet Count 260 130-400 K/uL Mean Platelet Volume 9.0 7.5-10.5 fL Immature Granulocyte % (Auto) 0.2 0-1 % Neutrophils (%) (Auto) 71.5 40.0-77.0 % Lymphocytes (%) (Auto) 22.4 21.0-51.0 % Monocytes (%) (Auto) 5.5 3.0-13.0 % Eosinophils (%) (Auto) 0.2 0.0-8.0 % Basophils (%) (Auto) 0.2 0.0-5.0 % Neutrophils # (Auto) 5.7 1.8-7.7 K/uL Lymphocytes # (Auto) 1.8 1.0-4.8 K/uL Monocytes # (Auto) 0.4 0.1-1.0 K/uL Eosinophils # (Auto) 0.02 0.00-0.70 K/uL Basophils # (Auto) 0.02 0.00-0.20 K/uL Absolute Immature Granulocyte (auto 0.02 0-1 K/uL Nucleated Red Blood Cells 0.0 0.0-0.19 % Urine Color LIGHT-YELLOW YELLOW Urine Appearance CLEAR CLEAR Urine pH 5.5 5.0-8.0 Urine Specific [place] 1.025 1.001-1.031 Urine Protein 10 H NEGATIVE mg/dL Urine Glucose (UA) NEGATIVE NEGATIVE mg/dL Urine Ketones 150 H NEGATIVE mg/dL Urine Occult Blood +- (TRACE) H NEGATIVE Urine Nitrate NEGATIVE NEGATIVE Urine Bilirubin NEGATIVE NEGATIVE mg/dL Urine Urobilinogen 0.2 0.2-1.0 mg/dL Urine Leukocyte Esterase NEGATIVE NEGATIVE Eduardo/uL Urine RBC 0-1 0-1 /HPF Urine WBC 0-1 0-1 /HPF Urine Squamous Epithelial Cells RARE 0-2 /HPF Urine Bacteria None None Seen /HPF Sodium Level 126 L 136-145 mmol/L Potassium Level 3.4 L 3.5-5.1 mmol/L Chloride Level 89 *L 101-111 mmol/L Carbon Dioxide Level 19 L 21-32 mmol/L Blood Urea Nitrogen 13 7-18 mg/dL Creatinine 0.6 0.5-1.3 mg/dL Glomerular Filtration Rate Calc 127 >90 mL/min Random Glucose 83 70-105 mg/dL Total Calcium 8.8 8.5-10.1 mg/dL Total Bilirubin 1.0 0.2-1.0 mg/dL Aspartate Amino Transf (AST/SGOT) 24 10-37 U/L Alanine Aminotransferase (ALT/SGPT) 26 12-78 U/L Alkaline Phosphatase 260 H 50-136 U/L Total Creatine Kinase 118 # 21-232 U/L Troponin I High Sensitivity 14 4-75 ng/L Total Protein 6.6 6.0-8.3 g/dL Albumin 4.0 3.5-5.0 g/dL Lipase 11 L 16-77 U/L Urine Opiates Screen NEGATIVE NEGATIVE Urine Barbiturates Screen NEGATIVE NEGATIVE Urine Phencyclidine Screen NEGATIVE NEGATIVE Urine Amphetamines Screen NEGATIVE NEGATIVE Urine Benzodiazepines Screen NEGATIVE NEGATIVE Urine Cocaine Screen NEGATIVE NEGATIVE Urine Marijuana (THC) Screen POSITIVE H NEGATIVE Serum Alcohol < 3 0-10 mg/dL DIAGNOSTICS / RADIOLOGY: No imaging done ASSESSMENT: Dehydration POA Hyponatremia Suspected starvation ketosis with positive urine ketones Metabolic acidosis likely secondary to starvation ketosis Recurrent nausea and vomiting differential secondary to hyperemesis syndrome from cannabinoid use Hyperthyroidism noncompliant with medication Marijuana use Tobacco use Mild LFT elevation PLAN: - patient to be admitted to medical-surgical unit with telemetry -in reference to hyponatremia with concern for starvation ketosis. Patient to be started on a D5 NS. We will recheck BMP in the afternoon. Obtain a ABG in blood ketones. We will kindly request consultation with Nephrology -obtain a CT abdomen pelvis. The patient will be NPO for now. Patient was coun seled regarding marijuana and tobacco cessation. Patient understood. -check TSH, hemoglobin -obtain home medications she will be reconciled once available -further orders per hospitalization course Advanced Care Planning Which of the following were discussed: Hospice care: Yes __ No _x_ Therapeutic options: Yes __ No __ Advance directives: Yes __ No __ Other discussions: Discussed with who?: patient (Patient, family or surrogates) Voluntary nature of this service was explained to the patient? Yes _x_ No __ Amount of time spent: 25 minutes Medina Mamachen MD MAMACHEN,MEDINA MD May 01, 2025 10:32
--- NOTE | 2025-05-01 10:54 | NUR ---
DR CHERYL CLEARY MADE AWARE OF NEPHRO CONSULT AT THIS TIME.
[2025-05-01 10:55] LABS: ABG BASE EXCESS -4.4 mmol/L (-2.0-3.0); ABG HCO3 16.7 mmol/L (21.0-28.0); ABG OXYGEN SATURATION 98.4 % (94.0-98.0); ABG PCO2 23 mmHg (35-48); ABG PH 7.486 (7.350-7.450); PO2, ARTERIAL BG 110.6 mmHg (83.0-108.0); TEMPERATURE, CELSIUS BG 37.0 CELSIUS (35.5-37.0); VENT MODE, BG ROOM AIR (ROOM AIR)
--- NOTE | 2025-05-01 11:00 | NUR ---
PT WAS FOUND IN A PRONE POSITION IN BED. PT WAS REDIRECTED AND WAS TOLD HE SHOULD NOT BE FACING DOWNWARD TOWARDS THE END OF THE BED HE CAN FALL. PT THEN STATED "YOU DONT HAVE TO GIVE ME ATTITUDE." PT WAS THEN TOLD WHY LAYING FACING DOWN AWAY FROM THE HEAD OF THE BED CAN CAUSE HIS IV TO FALL OUT, CARDIAC LEADS TO STOP MONITORING HIS HEART RATE, AND HOW HE CAN SLIP OFF THE BED AND CAUSE TRAUMA TO HEAD. PT THEN AGREED AND UNDERSTOOD. ICE PACKS WERE GIVEN PT REQUESTED DUE TO HAVING A "HOT NECK".
[2025-05-01] MEDS: DEXTROSE 5 % AND 0.9 % NACL 1,000 ML IV SCH (11:39)
[2025-05-01 13:21] LABS: CREATININE 0.6 mg/dL (0.5-1.3); GLOMERULAR FILTR. RATE CALC 127 mL/min (>90); GLUCOSE,RANDOM 87 mg/dL (70-105); SODIUM SERUM 132 mmol/L (136-145); UREA NITROGEN, BLOOD 9 mg/dL (7-18)
--- NOTE | 2025-05-01 13:22 | HMCIMG ---
EXAM: CT Abdomen and Pelvis Without IV Contrast CLINICAL HISTORY: Recurrent nausea and vomiting. TECHNIQUE: Axial computed tomography images of the abdomen and pelvis were obtained without intravenous contrast. CONTRAST: No IV contrast administered. COMPARISON: None provided. FINDINGS: LUNG BASES: Clear. No pleural effusion or consolidation. LIVER: Mildly diffusely hypodense relative to the spleen, consistent with hepatic steatosis (fatty liver). No focal hepatic lesions identified. GALLBLADDER AND BILE DUCTS: Gallbladder appears normal. No gallstones or wall thickening. No intrahepatic or extrahepatic biliary dilatation. PANCREAS: Normal in size and contour. No peripancreatic fat stranding or fluid collection. SPLEEN: Normal in size and attenuation. ADRENAL GLANDS: Normal bilaterally. KIDNEYS, URETERS, AND BLADDER: Both kidneys are normal in size and attenuation. No renal or ureteric calculi. No hydronephrosis or hydroureter. Urinary bladder appears unremarkable. STOMACH AND BOWEL: No evidence of bowel obstruction or wall thickening. Diffuse uncomplicated colonic diverticulosis noted, predominantly in the sigmoid and descending colon. No diverticulitis or pericolic fat stranding. APPENDIX: Appendix measures approximately 0.5 cm in diameter, normal in caliber with no surrounding inflammatory changes???no evidence of appendicitis. PERITONEUM: No free air or free fluid. LYMPH NODES: No abnormally enlarged lymph nodes. REPRODUCTIVE: Visualized pelvic organs appear unremarkable. VASCULATURE: No evidence of abdominal aortic aneurysm. BONES: No acute fracture or lytic/sclerotic lesions. IMPRESSION: * Fatty liver (hepatic steatosis). * Diffuse uncomplicated colonic diverticulosis. * Normal appendix measuring 0.5 cm in diameter???no CT evidence of appendicitis. * No acute intra-abdominal or pelvic abnormality identified. /[place]
[2025-05-01] MEDS: LACTATED RINGERS 1000ML 1,000 ML IV SCH (14:41)
--- NOTE | 2025-05-01 15:09 | HMCIMG ---
CT OF THE BRAIN WITHOUT CONTRAST CLINICAL INDICATION: Recurrent nausea. Vomiting. TECHNIQUE: Multiple contiguous axial CT images were obtained through the brain without the administration of intravenous contrast. Coronal and sagittal reconstructions were also obtained. COMPARISON: None available FINDINGS: The ventricular system and cortical sulci demonstrate a normal size and configuration for the patients age. There are no intra- or extra-axial collections, mass effect, or midline shift. The basal cisterns are patent. The bocanegra-white matter differentiation is preserved. The midline structures and cervicomedullary junction are unremarkable. There is no evidence of acute intracranial hemorrhage or areas of acute infarction. There are lucent areas within the portions of the calvarium with some areas demonstrating a somewhat curvilinear appearance. The visualized portions of the sinuses are well aerated. The mastoid air cells are well pneumatized and well aerated. The visualized orbital structures are unremarkable in appearance. IMPRESSION: 1. No CT evidence of an acute intercranial process. 2. Lucent areas within the calvarium which may be related to nutrient vessels; however, lytic lesions are a consideration. Please correlate clinically. MRI of the brain with and without intravenous contrast as well as whole-body nuclear bone scan studies are recommended for further evaluation. /[place]
[2025-05-01] MEDS: PROMETHAZINE HCL 25 MG/ML 1ML AMPULE IM ONE (15:50)
[2025-05-01 16:01] LABS: CREATININE,URINE RANDOM 63.28 mg/dL (30-135)
--- NOTE | 2025-05-01 17:10 | NUR ---
DCP: HOME/ +UDS Pt lives at in law's home with common law September [id number] and their 4 kids. Pt unemployed, works as provider. At home, pt is independent of his ADLS, uses no DME or in home care services. Pt has no local PCP, uses [facility] [address]. Community resources given. Pt with + UDS for marijuana. Pt admits to smoking it "when I have it". is aware of his THC use. Pt states he would quit if he want to, but does not want to. Pt declined resources offered. Pt and deny dc needs and will return home at tn
[2025-05-01 17:18] LABS: CREATININE 0.5 mg/dL (0.5-1.3); GLOMERULAR FILTR. RATE CALC 134.0 mL/min (>90); GLUCOSE,RANDOM 86.0 mg/dL (70-105); SODIUM SERUM 129.0 mmol/L (136-145); UREA NITROGEN, BLOOD 8.0 mg/dL (7-18)
[2025-05-01] MEDS: FAMOTIDINE 20MG VIAL IV SCH (19:52)
[2025-05-01 21:35] VITALS: BP 159/84; PULSE 70; RESP 18; TEMP 97.9
[2025-05-02] VITALS (11 sets, daily range): BP systolic 142–169; BP diastolic 61–97; PULSE 68–93; RESP 15–20; TEMP 97.7–98.3; O2SAT 100
[2025-05-02] MEDS: PROMETHAZINE HCL 25 MG/ML 1ML AMPULE IM ONE (03:19)
[2025-05-02 05:12] LABS: IMMATURE GRANULOCYTE ABSOLUTE 0.02 K/uL (0-1); NUCLEATED RED BLOOD CELLS 0.0 % (0.0-0.19); PLATELET COUNT (AUTO) 230 K/uL (130-400); RED BLOOD CELL COUNT(AUTO) 4.98 MIL/uL (4.50-6.20); RED CELL DISTRIBUTION WIDTH 12.3 % (11.0-15.5); WHITE BLOOD COUNT (AUTO) 5.4 K/uL (4.8-10.8)
[2025-05-02 05:29] LABS: CREATININE 0.4 mg/dL (0.5-1.3); GLOMERULAR FILTR. RATE CALC 143.0 mL/min (>90); GLUCOSE,RANDOM 89.0 mg/dL (70-105); SODIUM SERUM 132.0 mmol/L (136-145); UREA NITROGEN, BLOOD 7.0 mg/dL (7-18)
[2025-05-02 06:02] LABS: EOSINOPHILS % (MANUAL) 1 % (1-6); LYMPHOCYTES % (MANUAL) 17 % (22-44); MONOCYTES % (MANUAL) 6 % (2-9); REACTIVE LYMPHOCYTES 4 % (0-0); SEGMENTED NEUTROPHILS % 72 % (40-70)
[2025-05-02 06:03] LABS: MAN.DIFF COMMENT-IMPRESSION MANUAL DIFFERENTIAL; PLATELET MORPHOLOGY COMMENT ADEQUATE
--- NOTE | 2025-05-02 06:12 | CONS ---
REFERRING PHYSICIAN: Dr. Paulino. I did discuss the case in detail with primary team. REASON FOR CONSULTATION: Renal failure and hyponatremia. HISTORY OF PRESENT ILLNESS: A 39-year-old male with history of thyroid disease. The patient presented to the hospital with significant nausea and vomiting for the past 3 days. The patient states he was unable to hold any food down. In the Emergency Room, the patient was found to have renal dysfunction as well as multiple electrolyte abnormalities including hyponatremia and metabolic acidosis. The patient does admit to marijuana use as an outpatient. He is being seen in consultation for follow up. PAST MEDICAL HISTORY: He has thyroid disease. PAST SURGICAL HISTORY: No surgeries. SOCIAL HISTORY: He does admit to tobacco use. He admits to marijuana use. FAMILY HISTORY: No renal disease in the family. ALLERGIES: There are no allergies. MEDICATIONS: Noted. REVIEW OF SYSTEMS: GENERAL: He is feeling weak and tired. HEENT: No change in vision. No change in hearing. CARDIOVASCULAR: No current chest pains or palpitations. PULMONARY: No shortness of breath. GASTROINTESTINAL: As described above. MUSCULOSKELETAL: Complains of weakness. NEUROLOGIC: No seizures or focal deficit. PSYCHIATRIC: No history of hallucinations or psychosis. ENDOCRINE: He admits to thyroid disease. HEME: No history of anemia or malignancy. PHYSICAL EXAMINATION: VITAL SIGNS: Blood pressure is 139/80, pulse in the 90s. GENERAL: He is a chronically ill, thin male lying in bed on the medical floor. HEENT: Head is atraumatic. Pupils equal, round, and reactive to light. Oropharynx is without exudate. Nares are clear. NECK: There is no JVP. There is no thyromegaly. No masses. CARDIOVASCULAR: Regular. There is no S3 or S4 gallop. LUNGS: Coarse with equal thoracic movement. ABDOMEN: Soft, nondistended, nontender. EXTREMITIES: Reveal no clubbing or cyanosis. NEUROLOGICAL: He is awake. He is alert. He is oriented. SKIN: Reveals no rash or nodules. BACK: There is no CVA tenderness. No back deformities. LABORATORY DATA: Sodium 136, potassium 3.4, chloride 89, bicarbonate 19. Hemoglobin 15, hematocrit 45. Urine does reveal ketones in the urine. He is positive for marijuana. IMPRESSION: Acute renal failure. Hyponatremia, hypovolemia. Cannabinoid hyperemesis syndrome. Volume depletion. PLAN: The patient presents with hyponatremia and hypovolemia related to the persistent nausea. The patient's IV fluids will be switched to Lactated Ringer's at 125 mL an hour as the patient does have significant acidosis. The patient can continue with the diet as tolerated. Urine electrolytes including urine sodium are all pending and we will continue to follow the patient closely. All labs can be repeated in the morning. I did discuss with the patient in regards to cessation of the marijuana use upon discharge. We will continue to follow closely. TID: [id number] RECEIPT: [id number]
[2025-05-02] MEDS ORDERED: MAGNESIUM 2GM PREMIX 50ML 50 ML IV SCH (07:30)
[2025-05-02] MEDS: PoTASSium chloRIDE 20MEQ ER 20 MEQ ERTAB PO ONE (08:05)
[2025-05-02] MEDS: THIAMINE HCL 100 MG/ML 2ML VIAL IVP SCH (08:05)
[2025-05-02 09:12] LABS: ASPARTATE AMINOTRANSFERASE 33.0 U/L (10-37); TOTAL PROTEIN, SERUM 5.9 g/dL (6.0-8.3)
[2025-05-02] MEDS: MAGNESIUM 2GM PREMIX 50ML 50 ML IV PRN (10:28)
--- NOTE | 2025-05-02 13:47 | PN ---
[facility] PROGRESS NOTE Date of Service: May 02, 2025 Time of Service: 13:46 SUBJECTIVE: 05/02 the patient has been seen and examined at bedside, case discussed with the RN, no acute events overnight, the time of my visit the patient is comfortably in the bed, he is alert oriented x3, denies dizziness, no blurry vision, no headache, shortness chest pain, shortness shortness for breath, no nausea, no vomiting, no abdominal discomfort, he is following commands. Results of CT of the head reviewed, discussed with the patient, plan for MRI of the head with and without contrast for further evaluation. We will continue to follow sodium level in a.m.. Patient agreed with plan and understood the information provided. REVIEW OF SYSTEMS CONSTITUTIONAL: Denies fevers, chills, or night sweats. No unintentional weight loss reported. NEUROLOGICAL: Denies headache, amaurosis fugax, motor weakness, sensory deficit, vertigo/spinning sensation, gait abnormalities, or tremors. ENT: No hearing loss, otalgia, otorrhea, rhinitis, rhinorrhea, hoarseness, or sore throat. CARDIOVASCULAR: Denies any exertional angina, dyspnea on exertion, orthopnea, paroxysmal nocturnal dyspnea, palpitations, life-threatening arrhythmias, claudication. PULMONARY: Denies any shortness of breath, cough, phlegm/sputum, hemoptysis, pleuritic chest pain. SLEEP: Denies morning headaches, daytime somnolence or napping. Denies difficulty falling asleep, staying asleep, waking from sleep. Denies knowledge of snoring. GASTROINTESTINAL: Positive for abdominal pain, nausea, vomiting. Denied any hematemesis, melena, hematochezia GENITOURINARY: Denies frequency, urgency, nocturia, hematuria or incontinence (Storage/Irritative symptoms.) Low urinary stream, straining to void, urinary intermittency or hesitancy, splitting of the voiding stream, terminal dribbling. ENDOCRINOLOGIC: Denies polyuria, polydipsia, polyphagia or heat/cold intolerances. HEMATOLOGIC: Denies thrombophilia/previous clots, or coagulopathy/bleeding disorders. ONCOLOGIC: Denies personal history of malignancy. DERMATOLOGIC: Denies rashes or pruritus. PSYCHIATRIC: Denies any suicidal or homicidal ideation. Denies hallucinations. PHYSICAL EXAM GENERAL APPEARANCE: The patient is awake, alert, and oriented, in no acute cardiopulmonary distress. Appears anxious with episodes of frequent vomiting NEUROLOGICAL: Cranial nerves II-XII grossly intact. Motor is 5/5 in bilateral upper and lower extremities proximal to distal. No sensory deficits. HEENT: Face is symmetric. Pupils are equal and reactive. Extraocular movements are intact. NECK: Supple. No JVD. No thyromegaly. No submental, submandibular, pre- /postauricular, occipital or supraclavicular lymphadenopathy. CHEST: Normal chest expansion. No Telemetry. LUNGS: Absence of any rales, rhonchi or any wheezing. CARDIOVASCULAR: Regular. S1 and S2 normal. No appreciable rubs, murmurs or gallops. ABDOMEN: Soft, nontender, and nondistended. There is no rebound, voluntary guarding, or rigidity. : Deferred. No [place]. EXTREMITIES: Non-edematous and not cyanotic. No clubbing. Good capillary refill. SKIN: No skin breakdown. Vital Signs (last 8hr) Date Time Temp Pulse Resp B/P (MAP) Pulse Ox O2 Delivery O2 Flow Rate FiO2 05/02/25 11:38 97.7 80 16 149/77 100 Room Air 05/02/25 08:05 100 Room Air* 0 21 05/02/25 07:57 144/71 05/02/25 07:40 98.1 83 15 162/77 100 Room Air LABS: Laboratory: Test 05/02/25 04:55 05/01/25 12:50 05/01/25 10:53 05/01/25 08:52 Range/Units White Blood Count 5.4 # 4.8-10.8 K/uL Red Blood Count 4.98 4.50-6.20 MIL/uL Hemoglobin 15.3 14.0-18.0 g/dL Hematocrit 44.5 42-54 % Mean Corpuscular Volume 89.4 79-99 fL Mean Corpuscular Hemoglobin 30.7 27.0-33.0 pg Mean Corpuscular Hemoglobin Concent 34.4 32.0-36.0 g/dL Red Cell Distribution Width 12.3 11.0-15.5 % Platelet Count 230 130-400 K/uL Mean Platelet Volume 9.0 7.5-10.5 fL Immature Granulocyte % (Auto) 0.4 0-1 % Neutrophils (%) (Auto) 64.4 40.0-77.0 % Lymphocytes (%) (Auto) 25.0 21.0-51.0 % Monocytes (%) (Auto) 8.5 3.0-13.0 % Eosinophils (%) (Auto) 1.3 0.0-8.0 % Basophils (%) (Auto) 0.4 0.0-5.0 % Neutrophils # (Auto) 3.5 1.8-7.7 K/uL Lymphocytes # (Auto) 1.4 1.0-4.8 K/uL Monocytes # (Auto) 0.5 0.1-1.0 K/uL Eosinophils # (Auto) 0.07 0.00-0.70 K/uL Basophils # (Auto) 0.02 0.00-0.20 K/uL Absolute Immature Granulocyte (auto 0.02 0-1 K/uL Segmented Neutrophils % 72 H 40-70 % Lymphocytes % (Manual) 17 L 22-44 % Monocytes % (Manual) 6 2-9 % Eosinophils % (Manual) 1 1-6 % Nucleated Red Blood Cells 0.0 0.0-0.19 % Differential Comment MANUAL DIFFERENTIAL Reactive Lymphocytes 4 H 0-0 % White Cell Morphology Comment See comments Platelet Morphology Comment ADEQUATE Red Blood Cell Morphology NORMAL Sodium Level 132 L 136-145 mmol/L Potassium Level 3.1 L 3.5-5.1 mmol/L Chloride Level 95 L 101-111 mmol/L Carbon Dioxide Level 26 21-32 mmol/L Blood Urea Nitrogen 7 7-18 mg/dL Creatinine 0.4 L 0.5-1.3 mg/dL Glomerular Filtration Rate Calc 143 >90 mL/min Random Glucose 89 70-105 mg/dL Total Calcium 8.1 L 8.5-10.1 mg/dL Magnesium Level 1.50 L 1.80-2.40 mg/dL Total Bilirubin 0.9 0.2-1.0 mg/dL Direct Bilirubin 0.2 0.0-0.3 mg/dL Aspartate Amino Transf (AST/SGOT) 33 10-37 U/L Alanine Aminotransferase (ALT/SGPT) 23 12-78 U/L Alkaline Phosphatase 221 H 50-136 U/L Total Protein 5.9 L 6.0-8.3 g/dL Albumin 3.4 L 3.5-5.0 g/dL Amylase Level 35 25-115 U/L Lipase 10 L 16-77 U/L Whole Blood Ketones Quantitative 4.2 H 0.0-0.6 mmol/L Serum Osmolality 275 L 278-305 mOsm/kg Lactic Acid Level 2.0 0.8-2.5 mmol/L Thyroid Stimulating Hormone (TSH) < 0.01 L 0.36-3.74 uIU/mL Free Thyroxine (T4) Direct 2.44 H 0.76-1.46 ng/dL Free Triiodothyronine (T3) pg/mL 3.81 2.18-3.98 pg/mL Blood Gas Specimen Type Arterial Arterial Blood pH 7.486 H 7.350-7.450 Arterial Blood Partial Pressure CO2 23 L 35-48 mmHg Arterial Blood Partial Pressure O2 110.6 H 83.0-108.0 mmHg Arterial Blood HCO3 16.7 L 21.0-28.0 mmol/L Arterial Blood Oxygen Saturation 98.4 H 94.0-98.0 % Arterial Blood Base Excess -4.4 L -2.0-3.0 mmol/L Blood Gas Temperature 37.0 35.5-37.0 CELSIUS Blood Gas Vent Mode ROOM AIR ROOM AIR FiO2 21.0 % Blood Gas Specimen Comment RR SETH Urine Color LIGHT-YELLOW YELLOW Urine Appearance CLEAR CLEAR Urine pH 5.5 5.0-8.0 Urine Specific [place] 1.025 1.001-1.031 Urine Protein 10 H NEGATIVE mg/dL Urine Glucose (UA) NEGATIVE NEGATIVE mg/dL Urine Ketones 150 H NEGATIVE mg/dL Urine Occult Blood +- (TRACE) H NEGATIVE Urine Nitrate NEGATIVE NEGATIVE Urine Bilirubin NEGATIVE NEGATIVE mg/dL Urine Urobilinogen 0.2 0.2-1.0 mg/dL Urine Leukocyte Esterase NEGATIVE NEGATIVE Eduardo/uL Urine RBC 0-1 0-1 /HPF Urine WBC 0-1 0-1 /HPF Urine Squamous Epithelial Cells RARE 0-2 /HPF Urine Bacteria None None Seen /HPF Urine Random Creatinine 63.28 30-135 mg/dL Urine Random Sodium 114 40-220 mmol/l Hemoglobin A1c 5.2 4.0-6.0 % Estimated Average Glucose (eAG) 103 70-126 mg/dL Total Creatine Kinase 118 # 21-232 U/L Troponin I High Sensitivity 14 4-75 ng/L Procalcitonin < 0.05 L 0.05-0.5 ng/mL Urine Opiates Screen NEGATIVE NEGATIVE Urine Barbiturates Screen NEGATIVE NEGATIVE Urine Phencyclidine Screen NEGATIVE NEGATIVE Urine Amphetamines Screen NEGATIVE NEGATIVE Urine Benzodiazepines Screen NEGATIVE NEGATIVE Urine Cocaine Screen NEGATIVE NEGATIVE Urine Marijuana (THC) Screen POSITIVE H NEGATIVE Serum Alcohol < 3 0-10 mg/dL Current Medications Medications (Trade) Dose Ordered Sig/Jodi Route PRN Reason Start Time Stop Time Status Last Admin Dose Admin Acetaminophen (TYLenol 500MG TAB) 500 mg Q6H PRN PO MILD PAIN (1-3) 05/01/25 10:30 05/31/25 10:29 Dextrose/Sodium Chloride 1,000 ml @ 100 mls/hr Q10H IV 05/01/25 10:30 05/01/25 12:43 DC 05/01/25 11:39 100 MLS/HR Famotidine (Pepcid 20mg Vial) 20 mg BID IV 05/01/25 21:00 05/31/25 20:59 05/02/25 08:05 20 MG Folic Acid (FolVITE 5 MG/ML VIAL) 1 mg DAILY IV 05/02/25 09:00 06/01/25 08:59 05/02/25 10:14 1 MG Lactated Ringer's 1,000 ml @ 125 mls/hr Q8H IV 05/01/25 13:00 05/31/25 12:59 05/02/25 03:19 125 MLS/HR Magnesium Sulfate 50 ml @ 0 mls/hr PROTOCOL IV 05/02/25 07:30 05/02/25 07:21 DC Magnesium Sulfate 50 ml @ 0 mls/hr PROTOCOL PRN IV MAGNESIUM PROTOCOL 05/02/25 06:30 06/01/25 06:29 05/02/25 10:28 25 MLS/HR Morphine Sulfate (morPHINE 2MG SYG) 2 mg Q6H PRN IVP SEVERE PAIN (7-10) 05/01/25 10:30 05/01/25 10:56 DC Morphine Sulfate (morPHINE 4MG SYG) 2 mg Q6H PRN IVP SEVERE PAIN (7-10) 05/01/25 11:00 05/08/25 10:29 05/01/25 11:39 2 MG Ondansetron HCl (zoFRAN 4MG INJ) 4 mg Q6H PRN IVP NAUSEA/VOMITING 05/01/25 12:00 05/31/25 11:59 05/01/25 23:05 4 MG Potassium Chloride 100 ml @ 50 mls/hr AD PRN IV POTASSIUM PROTOCOL 05/02/25 06:30 06/01/25 06:29 05/02/25 06:29 50 MLS/HR Thiamine HCl (Vitamin B-1) 100 mg DAILY IVP 05/02/25 09:00 06/01/25 08:59 05/02/25 08:05 100 MG DIAGNOSTICS / RADIOLOGY: [ ] ASSESSMENT: Dehydration POA Hyponatremia Suspected starvation ketosis with positive urine ketones Metabolic acidosis likely secondary to starvation ketosis Recurrent nausea and vomiting differential secondary to hyperemesis syndrome from cannabinoid use Hyperthyroidism noncompliant with medication Marijuana use Tobacco use Mild LFT elevation PLAN: the patient has been seen and examined at bedside, case discussed with the RN, no acute events overnight, the time of my visit the patient is comfortably in the bed, he is alert oriented x3, denies dizziness, no blurry vision, no headache, shortness chest pain, shortness shortness for breath, no nausea, no vomiting, no abdominal discomfort, he is following commands. Results of CT of the head reviewed, discussed with the patient, plan for MRI of the head with and without contrast for further evaluation. We will continue to follow sodium level in a.m.. Patient agreed with plan and understood the information provided. NEURO: Minimize central acting medications as possible. Fall Precautions. Well lighted room through the day and minimize interruptions through the night to prevent acute delirium. PULMONARY: Supplemental 02 as needed BiPAP as necessary, for respiratory distress Titrate Fio2 to keep Spo2 > or = 90% DuoNebs and CPT as needed IS hourly while awake for pulmonary hygiene prn Out of bed to chair as tolerated Maintain aspiration precautions at all times CARDIOVASCULAR: Follow hemodynamics. Vital signs per facility protocol GI & NUTRITION: Continue nutritional support Aspirations precautions Prokinetic agents and laxatives as needed KIDNEYS & ELECTROLYTES: Strict monitoring of intake and output Daily weights Avoid nephrotoxic agents Monitor electrolytes and replace as needed Goal urine output of 30mL/hr or 0.5mL/kg/hr Medications to be dosed according to renal function. Avoid contrast if possible ENDOCRINE: Maintain blood glucose between 100-180 at all times. Insulin sliding scale for blood glucose management Hypoglycemia and hyperglycemia protocol in place INFECTIOUS DISEASE: Trend temperature, WBC and procalcitonin level Follow cultures, deescalate antibiotics as soon as possible. Panculture if new onset fever HEMATOLOGY & COAGULATION: Monitor H&H. Keep Hgb > 7 Transfuse 1 unit of PRBC for Hgb < 7 Transfuse 1 pack of platelets of platelets < 20, 000 Watch for any signs and symptoms of bleeding SKIN: Pressure ulcer prevention per facility protocol Specialty mattress as needed ORTHO/REHAB Continue PT/OT PRN: MEDICATIONS Tylenol 650 mg po every 4 hrs for fever zofran 4 mg IV every 6 hrs for n/v Hydralazine 5 mg IV every 4 hrs systolic pressure > 160 bowel regiment: lactulose 20 gm PO BID PRN constipation Supportive measures: Continue GI and DVT prophylaxis Disposition: Pending improvement in clinical condition All questions answered time spent: > 35 min JEOVANNY LEW MD May 02, 2025 13:47
--- NOTE | 2025-05-02 15:08 | PN ---
NEPHROLOGY PROGRESS NOTE Date/Time Patient Seen: May 02, 2025 SUBJECTIVE: This is a 39-year-old male with history of thyroid disease. The patient presented to the hospital with significant nausea and vomiting for the past 3 days. The patient states he was unable to hold any food down. In the Emergency Room, the patient was found to have renal dysfunction as well as multiple electrolyte abnormalities including hyponatremia and metabolic acidosis. The patient does admit to marijuana use as an outpatient. He is being seen in consultation for follow up. The patient's IV fluids will be switched to Lactated Ringer's The patient can continue with the diet as tolerated. Thyroid panel was noted, pending endocrinology consult Pending home medication list. Hyponatremia is improving Renal function is stable REVIEW OF SYSTEMS: GENERAL: Negative for any nausea, vomiting, fevers, chills, or weight loss. NEUROLOGIC: Negative for any blurry vision, blind spots, double vision, facial asymmetry, dysphagia, dysarthria, hemiparesis, hemisensory deficits, vertigo, ataxia. HEENT: Negative for any head trauma, neck trauma, neck stiffness, photophobia, phonophobia, sinusitis, rhinitis. CARDIAC: Negative for any chest pain, dyspnea on exertion, paroxysmal nocturnal dyspnea, peripheral edema. PULMONARY: Negative for any shortness of breath, wheezing, COPD, or TB exposure. GASTROINTESTINAL: Negative for any abdominal pain, nausea, vomiting, bright red blood per rectum, melena. GENITOURINARY: Negative for any dysuria, hematuria, incontinence. INTEGUMENTARY: Negative for any rashes, cuts, insect bites. RHEUMATOLOGIC: Negative for any joint pains, photosensitive rashes, history of vasculitis or kidney problems. HEMATOLOGIC: Negative for any abnormal bruising, frequent infections or bleeding. Vital Signs (last 8hr) Date Time Temp Pulse Resp B/P (MAP) Pulse Ox O2 Delivery O2 Flow Rate FiO2 05/02/25 11:38 97.7 80 16 149/77 100 Room Air 05/02/25 08:05 100 Room Air* 0 21 05/02/25 07:57 144/71 05/02/25 07:40 98.1 83 15 162/77 100 Room Air PHYSICAL EXAM: GENERAL: Alert and oriented x 3. No acute distress. Well-nourished. EYES: EOMI. Anicteric. HENT: Moist mucous membranes. No scleral icterus. No cervical lymphadenopathy. LUNGS: Clear to auscultation bilaterally. No accessory muscle use. CARDIOVASCULAR: Regular rate and rhythm. No murmur. No JVD. ABDOMEN: Soft, non-tender and non-distended. No palpable masses. EXTREMITIES: No edema. Non-tender. SKIN: No rashes or lesions. Warm. NEUROLOGIC: No focal neurological deficits. CN II-XII grossly intact, but not individually tested. PSYCHIATRIC: Cooperative. Appropriate mood and affect. Current Medications Medications (Trade) Dose Ordered Sig/Jodi Route PRN Reason Start Time Stop Time Status Last Admin Dose Admin Acetaminophen (TYLenol 500MG TAB) 500 mg Q6H PRN PO MILD PAIN (1-3) 05/01/25 10:30 05/31/25 10:29 Dextrose/Sodium Chloride 1,000 ml @ 100 mls/hr Q10H IV 05/01/25 10:30 05/01/25 12:43 DC 05/01/25 11:39 100 MLS/HR Famotidine (Pepcid 20mg Vial) 20 mg BID IV 05/01/25 21:00 05/31/25 20:59 05/02/25 08:05 20 MG Folic Acid (FolVITE 5 MG/ML VIAL) 1 mg DAILY IV 05/02/25 09:00 06/01/25 08:59 05/02/25 10:14 1 MG Lactated Ringer's 1,000 ml @ 125 mls/hr Q8H IV 05/01/25 13:00 05/31/25 12:59 05/02/25 03:19 125 MLS/HR Magnesium Sulfate 50 ml @ 0 mls/hr PROTOCOL IV 05/02/25 07:30 05/02/25 07:21 DC Magnesium Sulfate 50 ml @ 0 mls/hr PROTOCOL PRN IV MAGNESIUM PROTOCOL 05/02/25 06:30 06/01/25 06:29 05/02/25 10:28 25 MLS/HR Morphine Sulfate (morPHINE 2MG SYG) 2 mg Q6H PRN IVP SEVERE PAIN (7-10) 05/01/25 10:30 05/01/25 10:56 DC Morphine Sulfate (morPHINE 4MG SYG) 2 mg Q6H PRN IVP SEVERE PAIN (7-10) 05/01/25 11:00 05/08/25 10:29 05/01/25 11:39 2 MG Ondansetron HCl (zoFRAN 4MG INJ) 4 mg Q6H PRN IVP NAUSEA/VOMITING 05/01/25 12:00 05/31/25 11:59 05/01/25 23:05 4 MG Potassium Chloride 100 ml @ 50 mls/hr AD PRN IV POTASSIUM PROTOCOL 05/02/25 06:30 06/01/25 06:29 05/02/25 06:29 50 MLS/HR Thiamine HCl (Vitamin B-1) 100 mg DAILY IVP 05/02/25 09:00 06/01/25 08:59 05/02/25 08:05 100 MG LABORATORY: [ ] Hematology Labs: Test 05/02/25 04:55 Range/Units White Blood Count 5.4 # 4.8-10.8 K/uL Red Blood Count 4.98 4.50-6.20 MIL/uL Hemoglobin 15.3 14.0-18.0 g/dL Hematocrit 44.5 42-54 % Mean Corpuscular Volume 89.4 79-99 fL Mean Corpuscular Hemoglobin 30.7 27.0-33.0 pg Mean Corpuscular Hemoglobin Concent 34.4 32.0-36.0 g/dL Red Cell Distribution Width 12.3 11.0-15.5 % Platelet Count 230 130-400 K/uL Mean Platelet Volume 9.0 7.5-10.5 fL Immature Granulocyte % (Auto) 0.4 0-1 % Neutrophils (%) (Auto) 64.4 40.0-77.0 % Lymphocytes (%) (Auto) 25.0 21.0-51.0 % Monocytes (%) (Auto) 8.5 3.0-13.0 % Eosinophils (%) (Auto) 1.3 0.0-8.0 % Basophils (%) (Auto) 0.4 0.0-5.0 % Neutrophils # (Auto) 3.5 1.8-7.7 K/uL Lymphocytes # (Auto) 1.4 1.0-4.8 K/uL Monocytes # (Auto) 0.5 0.1-1.0 K/uL Eosinophils # (Auto) 0.07 0.00-0.70 K/uL Basophils # (Auto) 0.02 0.00-0.20 K/uL Absolute Immature Granulocyte (auto 0.02 0-1 K/uL Segmented Neutrophils % 72 H 40-70 % Lymphocytes % (Manual) 17 L 22-44 % Monocytes % (Manual) 6 2-9 % Eosinophils % (Manual) 1 1-6 % Nucleated Red Blood Cells 0.0 0.0-0.19 % Differential Comment MANUAL DIFFERENTIAL Reactive Lymphocytes 4 H 0-0 % White Cell Morphology Comment See comments Platelet Morphology Comment ADEQUATE Red Blood Cell Morphology NORMAL Chemistry Labs: Test 05/02/25 04:55 05/01/25 12:50 05/01/25 08:52 Range/Units Sodium Level 132 L 136-145 mmol/L Potassium Level 3.1 L 3.5-5.1 mmol/L Chloride Level 95 L 101-111 mmol/L Carbon Dioxide Level 26 21-32 mmol/L Blood Urea Nitrogen 7 7-18 mg/dL Creatinine 0.4 L 0.5-1.3 mg/dL Glomerular Filtration Rate Calc 143 >90 mL/min Random Glucose 89 70-105 mg/dL Total Calcium 8.1 L 8.5-10.1 mg/dL Magnesium Level 1.50 L 1.80-2.40 mg/dL Total Bilirubin 0.9 0.2-1.0 mg/dL Direct Bilirubin 0.2 0.0-0.3 mg/dL Aspartate Amino Transf (AST/SGOT) 33 10-37 U/L Alanine Aminotransferase (ALT/SGPT) 23 12-78 U/L Alkaline Phosphatase 221 H 50-136 U/L Total Protein 5.9 L 6.0-8.3 g/dL Albumin 3.4 L 3.5-5.0 g/dL Amylase Level 35 25-115 U/L Lipase 10 L 16-77 U/L Whole Blood Ketones Quantitative 4.2 H 0.0-0.6 mmol/L Serum Osmolality 275 L 278-305 mOsm/kg Lactic Acid Level 2.0 0.8-2.5 mmol/L Thyroid Stimulating Hormone (TSH) < 0.01 L 0.36-3.74 uIU/mL Free Thyroxine (T4) Direct 2.44 H 0.76-1.46 ng/dL Free Triiodothyronine (T3) pg/mL 3.81 2.18-3.98 pg/mL Hemoglobin A1c 5.2 4.0-6.0 % Estimated Average Glucose (eAG) 103 70-126 mg/dL Total Creatine Kinase 118 # 21-232 U/L Troponin I High Sensitivity 14 4-75 ng/L Procalcitonin < 0.05 L 0.05-0.5 ng/mL DIAGNOSTICS / RADIOLOGY: [facility] [address] [place] [address] IMAGING REPORT Signed PATIENT: LESLIE CALHOUN MR#: [id number] : 1985 SEX: M AGE: 39 LOCATION: [facility] ORDER 37 STATUS: ADM IN REPORT#: [id number] SERVICE 36 REASON: recurrent nausea, vomitng ORDERING PHYSICIAN: MEDINA NAJERA MD PROCEDURE: HEAD WO - CT HEAD/BRAIN W/O CONTRAST CT OF THE BRAIN WITHOUT CONTRAST CLINICAL INDICATION: Recurrent nausea. Vomiting. TECHNIQUE: Multiple contiguous axial CT images were obtained through the brain without the administration of intravenous contrast. Coronal and sagittal reconstructions were also obtained. COMPARISON: None available FINDINGS: The ventricular system and cortical sulci demonstrate a normal size and configuration for the patients age. There are no intra- or extra-axial collections, mass effect, or midline shift. The basal cisterns are patent. The bocanegra-white matter differentiation is preserved. The midline structures and cervicomedullary junction are unremarkable. There is no evidence of acute intracranial hemorrhage or areas of acute infarction. There are lucent areas within the portions of the calvarium with some areas demonstrating a somewhat curvilinear appearance. The visualized portions of the sinuses are well aerated. The mastoid air cells are well pneumatized and well aerated. The visualized orbital structures are unremarkable in appearance. IMPRESSION: 1. No CT evidence of an acute intercranial process. 2. Lucent areas within the calvarium which may be related to nutrient vessels; however, lytic lesions are a consideration. Please correlate clinically. MRI of the brain with and without intravenous contrast as well as whole-body nuclear bone scan studies are recommended for further evaluation. /[place] DICTATED BY: ISIS OBANDO MD DATE: 11/05/25 1608 ELECTRONICALLY SIGNED BY: ISIS OBANDO MD DATE: 05/01/251607 PATIENT: LESLIE CALHOUN MR#: [id number] : 1985 SEX: M AGE: 39 LOCATION: [facility] ORDER 1032 STATUS: ADM IN REPORT#: [id number] SERVICE 1026 REASON: RECURRENT NAUSEA, VOMITNING ORDERING PHYSICIAN: MEDINA NAJERA MD PROCEDURE: ABD PEL WO - CT ABDOMEN/PELVIS W/O CONTRAST EXAM: CT Abdomen and Pelvis Without IV Contrast CLINICAL HISTORY: Recurrent nausea and vomiting. TECHNIQUE: Axial computed tomography images of the abdomen and pelvis were obtained without intravenous contrast. CONTRAST: No IV contrast administered. COMPARISON: None provided. FINDINGS: LUNG BASES: Clear. No pleural effusion or consolidation. LIVER: Mildly diffusely hypodense relative to the spleen, consistent with hepatic steatosis (fatty liver). No focal hepatic lesions identified. GALLBLADDER AND BILE DUCTS: Gallbladder appears normal. No gallstones or wall thickening. No intrahepatic or extrahepatic biliary dilatation. PANCREAS: Normal in size and contour. No peripancreatic fat stranding or fluid collection. SPLEEN: Normal in size and attenuation. ADRENAL GLANDS: Normal bilaterally. KIDNEYS, URETERS, AND BLADDER: Both kidneys are normal in size and attenuation. No renal or ureteric calculi. No hydronephrosis or hydroureter. Urinary bladder appears unremarkable. STOMACH AND BOWEL: No evidence of bowel obstruction or wall thickening. Diffuse uncomplicated colonic diverticulosis noted, predominantly in the sigmoid and descending colon. No diverticulitis or pericolic fat stranding. APPENDIX: Appendix measures approximately 0.5 cm in diameter, normal in caliber with no surrounding inflammatory changes???no evidence of appendicitis. PERITONEUM: No free air or free fluid. LYMPH NODES: No abnormally enlarged lymph nodes. REPRODUCTIVE: Visualized pelvic organs appear unremarkable. VASCULATURE: No evidence of abdominal aortic aneurysm. BONES: No acute fracture or lytic/sclerotic lesions. IMPRESSION: * Fatty liver (hepatic steatosis). * Diffuse uncomplicated colonic diverticulosis. * Normal appendix measuring 0.5 cm in diameter???no CT evidence of appendicitis. * No acute intra-abdominal or pelvic abnormality identified. /[place] DICTATED BY: FERNANDA TINAJERO MD DATE: 05/01/251421 ELECTRONICALLY SIGNED BY: FERNANDA TINAJERO MD DATE: 05/01/251421 ASSESSMENT: Dehydration POA Hyponatremia Suspected starvation ketosis with positive urine ketones Metabolic acidosis likely secondary to starvation ketosis Recurrent nausea and vomiting differential secondary to hyperemesis syndrome from cannabinoid use Hyperthyroidism noncompliant with medication Marijuana use Tobacco use Mild LFT elevation PLAN: Labs, diagnostic, radiologic exams reviewed and interpreted by myself and supervising physician. We have reviewed external records in detail Pending home medication list Pending endocrinology consult Continue gentle IV hydration Require close monitoring of renal function and electrolytes Order CBC, CMP and electrolytes in am BiPAP as necessary, for respiratory distress Monitor blood pressure adjust medication doses as needed Avoid hypotensive episodes May use Dilaudid 0.5 mg IV every 6 hours as needed for severe pain Monitor blood sugars Strict intake, output, and daily weight should be monitored Please renally adjust medications Avoid nephrotoxic and nonsteroidal drugs Avoid contrast if possible Will continue to monitor renal function, anemia, electrolytes Treatment plan discussed with patient Questions were answered We have discussed with the other team physicians in detail about the care plan We will continue to monitor the patient closely ATTESTATION BY PHYSICIAN I have seen and examined the patient. I reviewed the documentation, medical decision making, and treatment plan as noted by the mid-level provider above. I agree with the findings and plan of care. YAHIR JON MD, [facility] May 02, 2025 15:08
[2025-05-02] MEDS: amLODIPine 5 MG TAB PO ONE (15:51)
--- NOTE | 2025-05-02 16:47 | CONS ---
CONSULT NOTE: Endocrinology Consult Chief complaint:nausea and vomiting Reason for consult: ernie DOS:05/02/25 HISTORY OF PRESENT ILLNESS: 39-year-old male with past medical history of hyperthyroidism presented to the hospital secondary to recurrent vomiting with abdominal pain. The patient states for the past five days he has noted that he has been having episodes of nausea with vomiting. Denies any melena, hematochezia. He has not been able to tolerate food orally secondary to feeling nauseated. He currently does not take any medications. Denied any fever, chills, chest pain, shortness of breath, cough. Denied any dysuria, hematuria. Denied any recent travel or, new onset rash. Denied any diarrhea but has been constipated in the past few days. Labs showed white count of 8.0, hemoglobin was 15.5, platelet count was 260 K, sodium was 126, potassium was 3.4, chloride was 89, bicarb was 19 BUN was , creatinine was 0.6, blood glucose was 83, alk-phos was 260, troponin was 14 , lipase was 11 In the ER patient received NS bolus tsh <0.01, t 4 free 2.44, t 4 total 24, t 3 total >651 he has hyperthyroidism for many years and use take methimazole 10 mg tid for many years but ran out last week. nausea/vomiting resolved. he is AAOX3 and tolerates po intake now. REVIEW OF SYSTEMS CONSTITUTIONAL: Denies fevers, chills, or night sweats. No unintentional weight loss reported. NEUROLOGICAL: Denies headache, amaurosis fugax, motor weakness, sensory deficit, vertigo/spinning sensation, gait abnormalities, or tremors. ENT: No hearing loss, otalgia, otorrhea, rhinitis, rhinorrhea, hoarseness, or sore throat. CARDIOVASCULAR: Denies any exertional angina, dyspnea on exertion, orthopnea, paroxysmal nocturnal dyspnea, palpitations, life-threatening arrhythmias, claudication. PULMONARY: Denies any shortness of breath, cough, phlegm/sputum, hemoptysis, pleuritic chest pain. SLEEP: Denies morning headaches, daytime somnolence or napping. Denies difficulty falling asleep, staying asleep, waking from sleep. Denies knowledge of snoring. GENITOURINARY: Denies frequency, urgency, nocturia, hematuria or incontinence (Storage/Irritative symptoms.) Low urinary stream, straining to void, urinary intermittency or hesitancy, splitting of the voiding stream, terminal dribbling. ENDOCRINOLOGIC: Denies polyuria, polydipsia, polyphagia or heat/cold intoler ances. HEMATOLOGIC: Denies thrombophilia/previous clots, or coagulopathy/bleeding disorders. ONCOLOGIC: Denies personal history of malignancy. DERMATOLOGIC: Denies rashes or pruritus. PSYCHIATRIC: Denies any suicidal or homicidal ideation. Denies hallucinations. PAST MEDICAL HISTORY: History of hyperthyroidism, history of marijuana use PAST SURGICAL HISTORY: Denied any surgical history PAST SOCIAL HISTORY: Has been smoking four cigarettes a day for at least 20 years. He also uses marijuana once a week. Denied any alcohol use FAMILY HISTORY: Denied any pertinent family history Coded Allergies: No Known Drug Allergies (Verified Allergy, Unknown, 03/08/18) PHYSICAL EXAM GENERAL APPEARANCE: The patient is awake, alert, and oriented, in no acute cardiopulmonary distress. Appears anxious with episodes of frequent vomiting NEUROLOGICAL: Cranial nerves II-XII grossly intact. Motor is 5/5 in bilateral upper and lower extremities proximal to distal. No sensory deficits. HEENT: Face is symmetric. Pupils are equal and reactive. Extraocular movements are intact. NECK: Supple. No JVD. No thyromegaly. No submental, submandibular, pre- /postauricular, occipital or supraclavicular lymphadenopathy. CHEST: Normal chest expansion. No Telemetry. LUNGS: Absence of any rales, rhonchi or any wheezing. CARDIOVASCULAR: Regular. S1 and S2 normal. No appreciable rubs, murmurs or gallops. ABDOMEN: Soft, nontender, and nondistended. There is no rebound, voluntary guarding, or rigidity. : Deferred. No [place]. EXTREMITIES: Non-edematous and not cyanotic. No clubbing. Good capillary refill. SKIN: No skin breakdown. ASSESSMENT: Hyperthyroidism noncompliant with medication-no thyroid storm tsh <0.01, t 4 free 2.44, t 4 total 24, t 3 total >651 he has hyperthyroidism for many years and use take methimazole 10 mg tid for many years but ran out last week. denies goiter or exophthalmos. nausea/vomiting resolved. he is AAOX3 and tolerates po intake now. Dehydration POA improving Hyponatremia likely due to dehydration- improving Suspected starvation ketosis with positive urine ketones Metabolic acidosis likely secondary to starvation ketosis Recurrent nausea and vomiting differential secondary to hyperemesis syndrome from cannabinoid use - improving Marijuana use Tobacco use Mild LFT elevation PLAN: start methimazole 10 mg tid. repeat thyroid labs in 1 month. methimazole prescription was placed in chart. he is planning to go back to [place]. patient was educated that will benefit from definitive hyperthyroidism treatment as outpatient. Vital Signs 05/02/25 05/02/25 05/02/25 08:05 15:50 16:16 Temp 98.2 Pulse 84 Resp 16 B/P (MAP) 142/85 Pulse Ox 100 O2 Delivery Room Air O2 Flow Rate 0 FiO2 21 Hematology Labs: Test 05/02/25 04:55 Range/Units White Blood Count 5.4 # 4.8-10.8 K/uL Red Blood Count 4.98 4.50-6.20 MIL/uL Hemoglobin 15.3 14.0-18.0 g/dL Hematocrit 44.5 42-54 % Mean Corpuscular Volume 89.4 79-99 fL Mean Corpuscular Hemoglobin 30.7 27.0-33.0 pg Mean Corpuscular Hemoglobin Concent 34.4 32.0-36.0 g/dL Red Cell Distribution Width 12.3 11.0-15.5 % Platelet Count 230 130-400 K/uL Mean Platelet Volume 9.0 7.5-10.5 fL Immature Granulocyte % (Auto) 0.4 0-1 % Neutrophils (%) (Auto) 64.4 40.0-77.0 % Lymphocytes (%) (Auto) 25.0 21.0-51.0 % Monocytes (%) (Auto) 8.5 3.0-13.0 % Eosinophils (%) (Auto) 1.3 0.0-8.0 % Basophils (%) (Auto) 0.4 0.0-5.0 % Neutrophils # (Auto) 3.5 1.8-7.7 K/uL Lymphocytes # (Auto) 1.4 1.0-4.8 K/uL Monocytes # (Auto) 0.5 0.1-1.0 K/uL Eosinophils # (Auto) 0.07 0.00-0.70 K/uL Basophils # (Auto) 0.02 0.00-0.20 K/uL Absolute Immature Granulocyte (auto 0.02 0-1 K/uL Segmented Neutrophils % 72 H 40-70 % Lymphocytes % (Manual) 17 L 22-44 % Monocytes % (Manual) 6 2-9 % Eosinophils % (Manual) 1 1-6 % Nucleated Red Blood Cells 0.0 0.0-0.19 % Differential Comment MANUAL DIFFERENTIAL Reactive Lymphocytes 4 H 0-0 % White Cell Morphology Comment See comments Platelet Morphology Comment ADEQUATE Red Blood Cell Morphology NORMAL Chemistry Labs: Test 05/02/25 04:55 05/01/25 12:50 05/01/25 08:52 Range/Units Sodium Level 132 L 136-145 mmol/L Potassium Level 3.1 L 3.5-5.1 mmol/L Chloride Level 95 L 101-111 mmol/L Carbon Dioxide Level 26 21-32 mmol/L Blood Urea Nitrogen 7 7-18 mg/dL Creatinine 0.4 L 0.5-1.3 mg/dL Glomerular Filtration Rate Calc 143 >90 mL/min Random Glucose 89 70-105 mg/dL Total Calcium 8.1 L 8.5-10.1 mg/dL Magnesium Level 1.50 L 1.80-2.40 mg/dL Total Bilirubin 0.9 0.2-1.0 mg/dL Direct Bilirubin 0.2 0.0-0.3 mg/dL Aspartate Amino Transf (AST/SGOT) 33 10-37 U/L Alanine Aminotransferase (ALT/SGPT) 23 12-78 U/L Alkaline Phosphatase 221 H 50-136 U/L Total Protein 5.9 L 6.0-8.3 g/dL Albumin 3.4 L 3.5-5.0 g/dL Amylase Level 35 25-115 U/L Lipase 10 L 16-77 U/L Whole Blood Ketones Quantitative 4.2 H 0.0-0.6 mmol/L Serum Osmolality 275 L 278-305 mOsm/kg Lactic Acid Level 2.0 0.8-2.5 mmol/L Thyroid Stimulating Hormone (TSH) < 0.01 L 0.36-3.74 uIU/mL Free Thyroxine (T4) Direct 2.44 H 0.76-1.46 ng/dL Free Triiodothyronine (T3) pg/mL 3.81 2.18-3.98 pg/mL Hemoglobin A1c 5.2 4.0-6.0 % Estimated Average Glucose (eAG) 103 70-126 mg/dL Total Creatine Kinase 118 # 21-232 U/L Troponin I High Sensitivity 14 4-75 ng/L Procalcitonin < 0.05 L 0.05-0.5 ng/mL Current Medications Medications (Trade) Dose Ordered Sig/Jodi Route Start Time Stop Time Status Last Admin Dose Admin Amlodipine Besylate (NorvASC 5MG TAB) 5 mg DAILY PO 05/03/25 09:00 06/02/25 08:59 Dextrose/Sodium Chloride 1,000 ml @ 100 mls/hr Q10H IV 05/01/25 10:30 05/01/25 12:43 DC 05/01/25 11:39 100 MLS/HR Famotidine (Pepcid 20mg Vial) 20 mg BID IV 05/01/25 21:00 05/31/25 20:59 05/02/25 08:05 20 MG Folic Acid (FolVITE 5 MG/ML VIAL) 1 mg DAILY IV 05/02/25 09:00 06/01/25 08:59 05/02/25 10:14 1 MG Lactated Ringer's 1,000 ml @ 125 mls/hr Q8H IV 05/01/25 13:00 05/02/25 15:46 DC 05/02/25 15:27 125 MLS/HR Magnesium Sulfate 50 ml @ 0 mls/hr PROTOCOL IV 05/02/25 07:30 05/02/25 07:21 DC Thiamine HCl (Vitamin B-1) 100 mg DAILY IVP 05/02/25 09:00 06/01/25 08:59 05/02/25 08:05 100 MG RADHA TSANG MD May 02, 2025 16:47
[2025-05-02] MEDS ORDERED: GADOTERATE MEGLUMINE 10 MMOL/20 ML VIAL IV ONE (17:39)
[2025-05-02] MEDS ORDERED: PoTASSium chl 10% ELIXIR 20MEQ 20 MEQ/15 ML UDCUP PO PRN (18:00)
[2025-05-03] VITALS: BP 145/96; PULSE 78; RESP 20; TEMP 97.9
[2025-05-03 04:00] VITALS: BP 114/68; PULSE 74; RESP 20; TEMP 97.8
[2025-05-03 05:11] LABS: NUCLEATED RED BLOOD CELLS 0.0 % (0.0-0.19); PLATELET COUNT (AUTO) 302.0 K/uL (130-400); RED BLOOD CELL COUNT(AUTO) 5.78 MIL/uL (4.50-6.20); RED CELL DISTRIBUTION WIDTH 12.2 % (11.0-15.5); WHITE BLOOD COUNT (AUTO) 7.7 K/uL (4.8-10.8)
[2025-05-03 05:48] LABS: ASPARTATE AMINOTRANSFERASE 45.0 U/L (10-37); CREATININE 0.8 mg/dL (0.5-1.3); GLOMERULAR FILTR. RATE CALC 116.0 mL/min (>90); GLUCOSE,RANDOM 124.0 mg/dL (70-105); SODIUM SERUM 133.0 mmol/L (136-145); TOTAL PROTEIN, SERUM 7.1 g/dL (6.0-8.3); UREA NITROGEN, BLOOD 9.0 mg/dL (7-18)
--- NOTE | 2025-05-03 07:00 | HMCIMG ---
EXAM: MR Brain with Brain stem Without and With IV Contrast. CLINICAL HISTORY: Lucent areas with calvarium. TECHNIQUE: Multiplanar multi-sequence MRI of the brain. CONTRAST: With contrast. COMPARISON: CT dated May 02, 2025. FINDINGS: There are multiple irregular T2/FLAIR hyperintensities diffusely scattered within the calvarium without diffusion restriction and show mild enhancement, likely benign lesions. No evidence of acute cortical infarction, hemorrhage, mass, or mass effect. The ventricular system is normal in size, shape, and contour. No hydrocephalus. No abnormal extra-axial fluid collection is present. The paranasal sinuses and mastoid air cells are clear. IMPRESSION: 1. No acute intracranial abnormality or mass. 2. There are multiple linear and irregular enhancing areas diffusely scattered within the calvarium, likely prominent vascular spaces. No diffusion restriction within these lesions. Compared to the previous CT dated May 02, 2025, no significant interval change. /[place]
[2025-05-03 07:30] VITALS: O2SAT 96
[2025-05-03 08:08] VITALS: BP 141/90; PULSE 95; RESP 14; TEMP 97.9
[2025-05-03] MEDS: PoTASSium chloRIDE 20MEQ ER 20 MEQ ERTAB PO PRN (08:28)
[2025-05-03] MEDS: amLODIPine 5 MG TAB PO SCH (08:28)
[2025-05-03] MEDS: PoTASSium chloRIDE 20MEQ ER 20 MEQ ERTAB PO ONE (08:45)
[2025-05-03] MEDS ORDERED: AMLO5TAB4 PO (08:58)
--- NOTE | 2025-05-03 10:41 | NUR ---
DISCHARGE PIV DC'D PATIENT GIVEN PRESCRIPTION LEFT BY DR. TSANG FOR METHIMAZOLE PATIENT INFORMED TO FOLLOW UP WITH DR. TSANG ON ALL QUESTIONS ANSWERED PRIOR TO DISCHARGE
--- NOTE | 2025-05-03 14:18 | DS ---
Discharge Summary Hospital Course Summary: DATE OF SERVICE 05/03/2025 THE PATIENT ADMITTED TO HOSPITAL MAY 01, 2025 WITH THE FOLLOWING HISTORY OF PRESENT ILLNESS: 39-year-old male with past medical history of hyperthyroidism presented to the hospital secondary to recurrent vomiting with abdominal pain. The patient states for the past five days he has noted that he has been having episodes of nausea with vomiting. His vomit has been greenish color without any evidence of hematemesis. Denies any melena, hematochezia. He has not been able to tolerate food orally secondary to feeling nauseated. He currently does not take any medications. Denied any fever, chills, chest pain, shortness of breath, cough. Denied any dysuria, hematuria. Denied any recent travel or, new onset rash. Denied any diarrhea but has been constipated in the past few days. Secondary to non improving symptoms patient thereafter came to the hospital for further evaluation. Labs showed white count of 8.0, hemoglobin was 15.5, platelet count was 260 K, sodium was 126, potassium was 3.4, chloride was 89, bicarb was 19 BUN was , creatinine was 0.6, blood glucose was 83, alk-phos was 260, troponin was 14 , lipase was 11 In the ER patient received NS bolus HOSPITAL COURSE 05/02 the patient has been seen and examined at bedside, case discussed with the RN, no acute events overnight, the time of my visit the patient is comfortably in the bed, he is alert oriented x3, denies dizziness, no blurry vision, no headache, shortness chest pain, shortness shortness for breath, no nausea, no vomiting, no abdominal discomfort, he is following commands. Results of CT of the head reviewed, discussed with the patient, plan for MRI of the head with and without contrast for further evaluation. We will continue to follow sodium level in a.m.. Patient agreed with plan and understood the information provided. THE PATIENT IS HEMODYNAMICALLY STABLE, ALERT ORIENTED X3, DENIES DIZZINESS, NO HEADACHE, NO BLURRY VISION, NO CHEST PAIN, SHORTNESS SHORTNESS FOR BREATH, NO NAUSEA, NO VOMITING, NO ABDOMINAL DISCOMFORT. PATIENT EVALUATED BY CATHODIC PROTECTION TECHNICIAN, INPUT NOTED AND APPRECIATED: PATIENT HAS A HISTORY OF HYPOTHYROIDISM FOR MANY YEARS AND TAKES METHIMAZOLE 10 MG P.O. T.I.D. FOR MANY YEARS, HOWEVER RAN OUT OF THE MEDICATION FOR THE LAST TWO WEEKS, RECOMMENDED TO CONTINUE METHIMAZOLE 10 MG P.O. T.I.D., TO REPEAT THYROID LABS IN ONE MONTH, PRESCRIPTION LEFT IN THE CHART AND GIVEN TO THE PATIENT. THE PATIENT IS PLANNING TO GO BACK TO [place]. Emissions Engineer(s): CATHODIC PROTECTION TECHNICIAN Assessment/Plan: FINAL DIAGNOSIS Dehydration POA Hyponatremia Suspected starvation ketosis with positive urine ketones Metabolic acidosis likely secondary to starvation ketosis Recurrent nausea and vomiting differential secondary to hyperemesis syndrome from cannabinoid use Hyperthyroidism noncompliant with medication Marijuana use Tobacco use Mild LFT elevation Home Medications: Active Scripts Amlodipine Besylate (Norvasc 5Mg Tab) 5 Mg Tablet, 5 MG PO DAILY for 30 Days, #30 TAB 2 Refills Prov:JEOVANNY LEW MD 05/03/25 Time spent arranging discharge: 31-60 minutes JEOVANNY LEW MD May 03, 2025 14:18
--- NOTE | 2025-05-03 20:36 | PN ---
Endocrinology progress note DOS:05/03/25 subjective In the ER patient received NS bolus tsh <0.01, t 4 free 2.44, t 4 total 24, t 3 total >651 he has hyperthyroidism for many years and use take methimazole 10 mg tid for many years but ran out last week. nausea/vomiting resolved. he is AAOX3 and tolerates po intake now. PAST MEDICAL HISTORY: History of hyperthyroidism, history of marijuana use PAST SURGICAL HISTORY: Denied any surgical history PAST SOCIAL HISTORY: Has been smoking four cigarettes a day for at least 20 years. He also uses marijuana once a week. Denied any alcohol use FAMILY HISTORY: Denied any pertinent family history Coded Allergies: No Known Drug Allergies (Verified Allergy, Unknown, 03/08/18) ASSESSMENT: Hyperthyroidism noncompliant with medication-no thyroid storm tsh <0.01, t 4 free 2.44, t 4 total 24, t 3 total >651 he has hyperthyroidism for many years and use take methimazole 10 mg tid for many years but ran out last week. denies goiter or exophthalmos. nausea/vomiting resolved. he is AAOX3 and tolerates po intake now. Dehydration POA improving Hyponatremia likely due to dehydration- improving Suspected starvation ketosis with positive urine ketones Metabolic acidosis likely secondary to starvation ketosis Recurrent nausea and vomiting differential secondary to hyperemesis syndrome from cannabinoid use - improving Marijuana use Tobacco use Mild LFT elevation PLAN: continue methimazole 10 mg tid. repeat thyroid labs in 1 month. methimazole prescription was placed in chart. he is planning to go back to [place]. patient was educated that will benefit from definitive hyperthyroidism treatment as outpatient. Vitals/Labs Vital Signs Date Time Temp Pulse Resp B/P (MAP) Pulse Ox O2 Delivery O2 Flow Rate FiO2 05/03/25 08:08 97.9 95 14 141/90 96 Room Air 05/03/25 07:30 0 21 Laboratory Tests 05/03/25 04:49 Medications Current Medications Sodium Chloride 1,000 ml @ 0 mls/hr ONCE ONCE IV Last administered on 05/01/25at 10:08; Start 05/01/25 at 09:00; Stop 05/01/25 at 09:02; Status DC Sodium Chloride 1,000 ml @ 0 mls/hr ONCE ONCE IV Last administered on 05/01/25at 10:05; Start 05/01/25 at 10:00; Stop 05/01/25 at 10:02; Status DC Ondansetron HCl 4 mg ONCE ONCE IVP Last administered on 05/01/25at 11:40; Start 05/01/25 at 10:30; Stop 05/01/25 at 10:31; Status DC Famotidine 20 mg BID IV Last administered on 05/03/25at 08:29; Start 05/01/25 at 21:00; Stop 05/03/25 at 10:48; Status DC Ondansetron HCl 4 mg Q6H PRN IVP Last administered on 05/01/25at 23:05; Start 05/01/25 at 12:00; Stop 05/03/25 at 10:48; Status DC Morphine Sulfate 2 mg Q6H PRN IVP; Start 05/01/25 at 10:30; Stop 05/01/25 at 10:56; Status DC Acetaminophen 500 mg Q6H PRN PO; Start 05/01/25 at 10:30; Stop 05/03/25 at 10:48; Status DC Dextrose/Sodium Chloride 1,000 ml @ 100 mls/hr Q10H IV Last administered on 05/01/25at 11:39; Start 05/01/25 at 10:30; Stop 05/01/25 at 12:43; Status DC Thiamine HCl 100 mg DAILY IVP Last administered on 05/03/25at 08:29; Start 05/02/25 at 09:00; Stop 05/03/25 at 10:48; Status DC Folic Acid 1 mg DAILY IV Last administered on 05/03/25at 08:43; Start 05/02/25 at 09:00; Stop 05/03/25 at 10:48; Status DC Morphine Sulfate 2 mg Q6H PRN IVP Last administered on 05/01/25at 11:39; Start 05/01/25 at 11:00; Stop 05/03/25 at 10:48; Status DC Lactated Ringer's 1,000 ml @ 125 mls/hr Q8H IV Last administered on 05/02/25at 15:27; Start 05/01/25 at 13:00; Stop 05/02/25 at 15:46; Status DC Promethazine HCl 12.5 mg ONCE ONCE IM Last administered on 05/01/25at 15:50; Start 05/01/25 at 15:30; Stop 05/01/25 at 15:31; Status DC Promethazine HCl 12.5 mg ONCE ONCE IM Last administered on 05/02/25at 03:19; Start 05/02/25 at 03:30; Stop 05/02/25 at 03:31; Status DC Potassium Chloride 100 ml @ 50 mls/hr AD PRN IV Last administered on 05/02/25at 06:29; Start 05/02/25 at 06:30; Stop 05/03/25 at 10:48; Status DC Magnesium Sulfate 50 ml @ 0 mls/hr PROTOCOL PRN IV Last administered on 05/02/25at 10:28; Start 05/02/25 at 06:30; Stop 05/03/25 at 10:48; Status DC Potassium Chloride 40 meq ONCE ONCE PO Last administered on 05/02/25at 08:05; Start 05/02/25 at 07:30; Stop 05/02/25 at 07:31; Status DC Potassium Chloride 100 ml @ 50 mls/hr ONCE ONCE IV Last administered on 05/02/25at 12:39; Start 05/02/25 at 07:30; Stop 05/02/25 at 09:29; Status DC Magnesium Sulfate 50 ml @ 0 mls/hr PROTOCOL IV; Start 05/02/25 at 07:30; Stop 05/02/25 at 07:21; Status DC Amlodipine Besylate 5 mg ONCE ONCE PO Last administered on 05/02/25at 15:51; Start 05/02/25 at 16:00; Stop 05/02/25 at 16:01; Status DC Hydralazine HCl 5 mg Q6H6 PRN IV; Start 05/02/25 at 16:00; Stop 05/03/25 at 10:48; Status DC Amlodipine Besylate 5 mg DAILY PO Last administered on 05/03/25at 08:28; Start 05/03/25 at 09:00; Stop 05/03/25 at 10:48; Status DC Methimazole 10 mg BID PO Last administered on 05/02/25at 21:46; Start 05/02/25 at 21:00; Stop 05/03/25 at 05:29; Status DC Gadoterate Meglumine 10 mmol STK-MED ONCE IV; Start 05/02/25 at 17:39; Stop 05/02/25 at 17:39; Status DC Potassium Chloride 100 ml @ 100 mls/hr AD PRN IV; Start 05/02/25 at 18:00; Stop 05/03/25 at 10:48; Status DC Potassium Chloride 20 meq AD PRN PO; Start 05/02/25 at 18:00; Stop 05/03/25 at 10:48; Status DC Potassium Chloride 20 meq AD PRN PO; Start 05/02/25 at 18:00; Stop 05/03/25 at 10:48; Status DC Methimazole 10 mg TIDMEALS PO Last administered on 05/03/25at 08:29; Start 05/03/25 at 08:00; Stop 05/03/25 at 10:48; Status DC Potassium Chloride 40 meq ONCE ONCE PO Last administered on 05/03/25at 08:45; Start 05/03/25 at 08:30; Stop 05/03/25 at 08:31; Status DC RADHA TSANG MD May 03, 2025 20:36
--- NOTE | 2025-05-04 07:43 | PN ---
SUBJECTIVE: This patient has multiple problems including hyponatremia. No other associated findings. No other aggravating or relieving factors. No other associated symptoms. The patient has hyperthyroidism and has been on methimazole. No other associated symptoms. The patient is . Other systemic review is unchanged. No other associated findings. PHYSICAL EXAMINATION: VITAL SIGNS: Blood pressure is 147/90, pulse 95, respiratory rate is 18 and afebrile. HEENT: Head is atraumatic, normocephalic. Pupils are round and reactive. Sclerae are anicteric. Conjunctivae not pale. Oral mucosa is not dry. NECK: Supple. No masses or bruits. Thyroid is palpable. Neck has no bruits. CHEST: Shows equal thoracic percussion note being resonant in all areas. CARDIAC: Regular rhythm. No rubs. No S3, S4. No murmur. ABDOMEN: No guarding or tenderness. Bowel sounds heard. LABORATORY DATA: Labs have been reviewed. Sodium is low. Potassium is low. PROBLEMS: * Electrolyte problem. * Hyperthyroidism. PLAN: Continuing to follow up on electrolytes, potassium replacement. The patient will be followed up by table filler and we will monitor closely on sodium level. Avoid drugs which can potentiate the hyponatremia. I have discussed with other team members. TID: [id number] RECEIPT: [id number]
== END 2025-05-03 10:45 | disposition home or self-care (01) | DRG 641 ==
LOC: EDH 08:31 → EDHIP 10:26 → 3BH 21:20
PROVIDERS: ADMIT Internal Medicine; ATTEND Internal Medicine
DX: E86.0 Dehydration (principal); E86.1 Hypovolemia; E87.20 Acidosis, unspecified; N17.9 Acute kidney failure, unspecified; E03.9 Hypothyroidism, unspecified; I10 Essential (primary) hypertension; E05.90 Thyrotoxicosis, unspecified without thyrotoxic crisis or storm; K76.0 Fatty (change of) liver, not elsewhere classified; E87.1 Hypo-osmolality and hyponatremia; R11.16 Cannabis hyperemesis syndrome; F17.200 Nicotine dependence, unspecified, uncomplicated; K57.30 Diverticulosis of large intestine without perforation or abscess without bleeding; T73.0XXA Starvation, initial encounter; X58.XXXA Exposure to other specified factors, initial encounter; Z91.148 Patient's other noncompliance with medication regimen for other reason
CPT/HCPCS: 36415; 36600; 70450; 70553; 74176; 80048; 80053; 80076; 80305; 81001; 82010; 82150; 82550; 82570; 82803; 83036; 83605; 83690; 83735; 83930; 84132; 84145; 84300; 84439; 84443; 84481; 84484; 84550; 85025; 85027; 93005; 99285; G0378; J2270; J2405; J2550; J3411; J3475; J3480; J3490; A9575; J1308

== ENCOUNTER 2025-06-08 17:26 | Inpatient (IN) | payer MEDICAID ==
[~2025-06-08] VITALS: Ht 160 cm; Wt 48.0 kg
[~2025-06-08 17:26] MED LIST changes: +AMLO5TAB4 PO; -CEFU500T67 PO; -METO25 PO; -ONDA-243 PO
--- NOTE | 2025-06-08 17:54 | ERN ---
General Chief Complaint: Nausea,Vomiting,Diarrhea Stated Complaint: NAUSEA VOMITING X2 DAYS Time Seen by MD: 17:39 Source: patient History of Present Illness Initial Comments Patient is a 39-year-old male coming in complaining of abdominal discomfort n auseousness. With the patient has been having this about two days. He states he does has a history of an irregular thyroid. Allergies: Coded Allergies: No Known Drug Allergies (Verified Allergy, Unknown, 03/08/18) Home Meds Active Scripts Amlodipine Besylate (Norvasc 5Mg Tab) 5 Mg Tablet, 5 MG PO DAILY for 30 Days, #30 TAB 2 Refills Prov:JEOVANNY LEW MD 05/03/25 Past Medical History Past Medical History: Hyperthyroid Medical History Other: CHEST TUBE, PNEUMO Past Surgical History: Other Surgical History Other: RT CHEST TUBE Social History Social History: Smokers, Drugs, Other ROS Dictation CONSTITUTIONAL: No chills, no fever, no weakness, no diaphoresis, no malaise. HEAD/FACE: No signs of trauma. EENT: No eye pain, no blurred vision, no tearing, no double vision, no ear pain, no ear discharge, no nose pain, no nasal congestion, no throat pain, no throat swelling, no mouth pain. RESPIRATORY: No cough, no orthopnea, no SOB, no stridor, no wheezing. CARDIOVASCULAR: No chest pain, no edema, no palpitations, no syncope. GASTROINTESTINAL/ABDOMINAL: No abdominal pain, no constipation, no diarrhea, no nausea, no vomiting. GENITOURINARY: No abnormal discharge, no dysuria, no frequent urination, no hematuria. No complaints of pain in the genitals. MUSCULOSKELETAL: No back pain, no gout, no joint pain, no joint swelling, no muscle pain, no muscle stiffness, no neck pain. INTEGUMENTARY: No change in color, no change in hair/nails, no dryness, no lesion, no lumps, no rash. NEUROLOGICAL/PSYCH: No anxiety, not depressed, no emotional problem, no headache, no numbness, no pre-existing deficit, no history of seizures, no tremors, no weakness. HEMATOLOGIC/LYMPHATIC: Not anemic, no history of blood clots, no apparent bleeding, no bruising, glands not swollen. All Systems Negative, Except as Noted. Physical Exam Physical Exam Dictation VITAL SIGNS: Reviewed. GENERAL APPEARANCE: Alert, oriented x3, no acute distress, obese. HEAD AND FACE: Non-traumatic. EYES: PERRL, pink conjunctivas, eyelid no trauma, anterior chamber clear. EARS: Pinnas intact and no signs of trauma or erythema. Ear canals clear and no discharge. TMs no erythema. NOSE: No discharge, no bleeding. OROPHARYNX: Mouth normal, teeth no caries, tongue pink. Pharynx clear, no erythema. Tonsils no exudates, no abscesses noted. Mucous membrane moist. NECK: Supple, non-tender, no thyromegaly, no masses, no JVD, no bruits. BREAST: Deferred. CHEST: No tenderness, no crepitus, no paradoxical movement, no retractions. LUNGS: Clear, well-ventilated, symmetric, no rales, no wheezing, no rhonchi, no stridor, good breath sounds bilaterally. HEART: Regular rate, regular rhythm, no murmur, no gallops. VASCULAR: No peripheral edema. ABDOMEN: Soft, positive bowel sounds, nondistended, no guarding, nontender, no rebound, no masses no hepatomegaly, no splenomegaly, no Durham's sign, no hernias. RECTAL: Deferred. GENITAL: Deferred. NEUROLOGICAL: Normal speech, gross motor function intact, gross sensory function intact. MUSCULOSKELETAL: Neck nontender, full range of motion, back nontender, full range of motion. EXTREMITIES: Nontender, full range of motion. SKIN: Color pink, dry, no turgor, no rash, no lacerations, no abrasions, no contusions. LYMPHATICS: Deferred. Results Laboratory and Microbiology Lab and Micro Result Laboratory Tests Test 06/08/25 17:50 06/08/25 18:58 White Blood Count 10.2 K/uL (4.8-10.8) Red Blood Count 5.68 MIL/uL (4.50-6.20) Hemoglobin 17.0 g/dL (14.0-18.0) Hematocrit 48.8 % (42-54) Mean Corpuscular Volume 85.9 fL (79-99) Mean Corpuscular Hemoglobin 29.9 pg (27.0-33.0) Mean Corpuscular Hemoglobin Concent 34.8 g/dL (32.0-36.0) Red Cell Distribution Width 12.3 % (11.0-15.5) Platelet Count 339 K/uL (130-400) Mean Platelet Volume 9.3 fL (7.5-10.5) Immature Granulocyte % (Auto) 0.2 % (0-1) Neutrophils (%) (Auto) 76.7 % (40.0-77.0) Lymphocytes (%) (Auto) 13.9 % (21.0-51.0) L Monocytes (%) (Auto) 8.9 % (3.0-13.0) Eosinophils (%) (Auto) 0.1 % (0.0-8.0) Basophils (%) (Auto) 0.2 % (0.0-5.0) Neutrophils # (Auto) 7.8 K/uL (1.8-7.7) H Lymphocytes # (Auto) 1.4 K/uL (1.0-4.8) Monocytes # (Auto) 0.9 K/uL (0.1-1.0) Eosinophils # (Auto) 0.01 K/uL (0.00-0.70) Basophils # (Auto) 0.02 K/uL (0.00-0.20) Absolute Immature Granulocyte (auto 0.02 K/uL (0-1) Nucleated Red Blood Cells 0.0 % (0.0-0.19) Sodium Level 132 mmol/L (136-145) L Potassium Level 3.9 mmol/L (3.5-5.1) Chloride Level 88 mmol/L (101-111) *L Carbon Dioxide Level 20 mmol/L (21-32) L Blood Urea Nitrogen 41 mg/dL (7-18) H Creatinine 0.8 mg/dL (0.5-1.3) Glomerular Filtration Rate Calc 116 mL/min (>90) Random Glucose 112 mg/dL (70-105) H Lactic Acid Level 3.0 mmol/L (0.8-2.5) H Total Calcium 8.9 mg/dL (8.5-10.1) Total Creatine Kinase 414 U/L (21-232) #*H Troponin I High Sensitivity 55 ng/L (4-75) Thyroid Stimulating Hormone (TSH) < 0.01 uIU/mL (0.36-3.74) L Free Thyroxine (T4) Direct 4.94 ng/dL (0.76-1.46) H Urine Color LIGHT-YELLOW (YELLOW) Urine Appearance CLEAR (CLEAR) Urine pH 5.5 (5.0-8.0) Urine Specific [place] 1.019 (1.001-1.031) Urine Protein NEGATIVE mg/dL (NEGATIVE) Urine Glucose (UA) NEGATIVE mg/dL (NEGATIVE) Urine Ketones 150 mg/dL (NEGATIVE) H Urine Occult Blood NEGATIVE (NEGATIVE) Urine Nitrate NEGATIVE (NEGATIVE) Urine Bilirubin NEGATIVE mg/dL (NEGATIVE) Urine Urobilinogen 0.2 mg/dL (0.2-1.0) Urine Leukocyte Esterase NEGATIVE Eduardo/uL Urine Opiates Screen NEGATIVE (NEGATIVE) Urine Barbiturates Screen NEGATIVE (NEGATIVE) Urine Phencyclidine Screen NEGATIVE (NEGATIVE) Urine Amphetamines Screen NEGATIVE (NEGATIVE) Urine Benzodiazepines Screen NEGATIVE (NEGATIVE) Urine Cocaine Screen NEGATIVE (NEGATIVE) Urine Marijuana (THC) Screen POSITIVE (NEGATIVE) H Labs Reviewed?: Yes EKG/XRAY/US/CT/MRI EKG Comment 06/08/2025 time 5:37 p.m. Ventricular rate 123 Sinus tachycardia [place] [address] wave elevation or depression MDM Assumed care of this patient at 7:00 p.m. labs pending Differential diagnosis: Sepsis, thyroid storm, hyperthyroidism, sympathetic surge from recreational drugs and neuro stimulants This is a 39-year-old male who looks at least 89 comes in with a nausea and vomitings for 2 days and palpitations. EMS gave him IV Zofran and LR and transferred him to ER at presentation patient was noted to be very ill temperature 98 heart rate is 137 blood pressure 153/86 with a pulse oximetry of 99% on room air he indicated to me that he has not on any of his thyroid medications for more than a month. No fever chills or rigors. 8:00 p.m. labs reviewed CBC is with a normal limits BNP 7 is significant for sodium of 132 chloride 88 BUN and creatinine are 41 and 0.8 total CK 414 lactic acid 3.0 Troponins are negative. Urinalysis is unremarkable UDS is positive for THC. TSH is less than 0.01 free T4 is 4.94 IV hydration, propranolol to reduces sympathetic surge and resume his methimazole for hyperthyroidism. (thyroid storm score-but 40 points) I recommended admission to the hospital for further management. Patient appears extremely toxic lethargic, emaciated. Agreeable 8:50 p.m. patient accepted by Selvin Delgado, mid-level provider for [facility] hospitalist group for admission and further management Empiric antibiotics due to increased risk of infections with thyroid storm Rationale: Tests considered and ordered secondary to shared decision making include: labs, ECG and radiology Previous outside records reviewed: Old ER visits. Risk of complication and/or morbidity or mortality of patient management: None Medications-Per medication reconciliation Need for hospitalization: Patient does meet criteria for hospitalization. Need for emergency major/minor surgery: No There are no social concerns with this patient. Prescription drug management Prescriptions will include symptomatic care Patient's prior external medical records from other ER visits were reviewed by me as indicated. Prior testing and results from previous visits were reviewed. Prior tests were taken into account with medical decision making and resource utilization, independent historian/historians were used to obtain complete medical history. I independently interpreted the test that were performed, results were reviewed by me and considered findings on radiology if ordered. Medical management and examination interpretation discussions were had by me with other qualified healthcare professionals as indicated for the patient's care. ED Course Orders Procedure Category Date Status Time 12 Lead Ekg Tracing- EKG 06/08/25 Logged Technical 17:34 Cbc With Differential LAB 06/08/25 Complete 17:39 Blood Cult CHRISTINE 06/08/25 In Process 17:39 Urinalysis Profile LAB 06/08/25 Complete 17:39 Culture Urine CHRISTINE 06/08/25 In Process 17:39 0.9%Nacl 1000ml (Ns PHA 06/08/25 In Process 1000ml) 18:00 Creatine Kinase, Total LAB 06/08/25 Complete 17:39 Troponin I High LAB 06/08/25 Complete Sensitivity 17:39 Lactic Acid LAB 06/08/25 Complete 17:39 Basic Metabolic Panel LAB 06/08/25 Complete 17:39 Drug Screen Urine LAB 06/08/25 Complete 17:39 Thyroid Stimulating LAB 06/08/25 Complete Hormone 17:43 T4 Free LAB 06/08/25 Complete 17:43 Propranolol Hcl PHA 06/08/25 In Process (Inderal) 20:00 Methimazole (Tapazole) PHA 06/08/25 In Process 20:00 0.9%Nacl 1000ml (Ns PHA 06/08/25 In Process 1000ml) 20:00 Edm Admit Bridge Order ADM 06/08/25 Transmitted 20:51 Current Medications Medications (Trade) Dose Ordered Sig/Jodi Route PRN Reason Start Time Stop Time Status Last Admin Dose Admin Methimazole (tapaZOLE) 10 mg ONCE PO 06/08/25 20:00 06/09/25 19:59 06/08/25 20:16 Propranolol HCl (Inderal) 40 mg ONCE PO 06/08/25 20:00 06/08/25 23:30 06/08/25 20:17 Sodium Chloride 1,000 ml @ 0 mls/hr ONCE IV 06/08/25 20:00 06/08/25 23:30 Sodium Chloride 1,878 ml @ 626 mls/hr ONCE IV 06/08/25 18:00 06/09/25 17:59 06/08/25 17:56 Vital Signs Date Time Temp Pulse Resp B/P (MAP) Pulse Ox O2 Delivery O2 Flow Rate FiO2 06/08/25 19:24 98.1 128 26 167/99 99 Room Air* 0 06/08/25 18:45 98.1 131 20 160/88 99 Room Air* 0 06/08/25 18:00 137 20 148/87 97 Room Air* 0 06/08/25 17:29 98.1 137 18 153/86 99 Room Air 0 DX & DISP Disposition: Inpatient Decision to Admit Time: 21:01 Departure Impression: Primary Impression: Thyrotoxicosis without thyroid storm Additional Impressions: Nausea & vomiting, Cannabis hyperemesis syndrome, Dehydration, Moderate protein-calorie malnutrition Condition: Stable Additional Instructions: Patient was informed of all the diagnostic labs and procedures conducted in the emergency room today and demonstrated understanding of the results. I personally reviewed and interpreted all the diagnostic exams performed in the ER today. The patient will be admitted to the hospital for further treatment and evaluation. Disposition-admit to facility Condition-stable/guarded Course-uncertain at this time Pain status-decreased Assessment-exam unchanged Admission Certification- I certify that the patients status is appropriate and is based on my best clinical judgment and the patient's condition as documented in the medical records Referrals: SELF,REFERRAL (PCP) TIMMY SILVA MD Jun 08, 2025 17:54 CHUCKY CABALLERO MD Jun 08, 2025 21:03
[2025-06-08] MEDS: [UNRECOGNIZED DRUG - OTHER] IV SCH (17:56)
[2025-06-08 18:00] LABS: IMMATURE GRANULOCYTE ABSOLUTE 0.02 K/uL (0-1); NUCLEATED RED BLOOD CELLS 0.0 % (0.0-0.19); PLATELET COUNT (AUTO) 339 K/uL (130-400); RED BLOOD CELL COUNT(AUTO) 5.68 MIL/uL (4.50-6.20); RED CELL DISTRIBUTION WIDTH 12.3 % (11.0-15.5); WHITE BLOOD COUNT (AUTO) 10.2 K/uL (4.8-10.8)
[2025-06-08 18:22] LABS: CREATININE 0.8 mg/dL (0.5-1.3); GLOMERULAR FILTR. RATE CALC 116.0 mL/min (>90); GLUCOSE,RANDOM 112.0 mg/dL (70-105); SODIUM SERUM 132.0 mmol/L (136-145); UREA NITROGEN, BLOOD 41.0 mg/dL (7-18)
[2025-06-08 18:24] LABS: CREATINE KINASE, TOTAL 414.0 U/L (21-232)
[2025-06-08 19:08] LABS: APPEARANCE,URINE CLEAR (CLEAR); GLUCOSE, URINE (UA) NEGATIVE (NEGATIVE); LEUKOCYTE ESTERASE ,URINE NEGATIVE Leu/uL (NEGATIVE); NITRATE,URINE NEGATIVE (NEGATIVE); OCCULT BLOOD,URINE NEGATIVE (NEGATIVE)
[2025-06-08 19:15] LABS: AMPHET/METH SCREEN,URINE NEGATIVE (NEGATIVE); BARBITURATE SCREEN, URINE NEGATIVE (NEGATIVE); CANNABINOID SCREEN,URINE POSITIVE (NEGATIVE); COCAINE SCREEN,URINE NEGATIVE (NEGATIVE)
--- NOTE | 2025-06-08 19:21 | NUR ---
PT CARE ASSUMED AT THIS TIME
[2025-06-08 19:30] LABS: ADD UA MICROSCOPIC NO
[2025-06-08] MEDS: PROPRANOLOL HCL 20 MG TAB PO SCH (20:17)
--- NOTE | 2025-06-08 21:08 | HP ---
History of Present Illness Reason for Visit: Abdominal pain Referring MD: Self-referral History of Present Illness Mr. Negrete is a 39-year-old male who presents to the emergency department with the abdominal discomfort associated with nausea and vomiting that has been ongoing for two days prior to presentation. Symptoms are persistent and associated with poor oral intake and dehydration. Patient denies hematemesis, melena, hematoch ezia, dysuria, hematuria, fever or chills. Emergency department evaluation revealed significant biochemical thyrotoxicosis with suppressed TSH and markedly elevated free T4 along with sinus tachycardia, metabolic derangements and elevated lactate, prompting admission for further management. Patient denies chest pain or shortness and breath. Patient remains alert and oriented, af ebrile and hemodynamically stable. Urine toxicology is positive for THC raising concern for possible contribution from cannabinoid related GI symptoms. Patient reports outpatient use of methimazole but states he has not been taking it recently. Past Medical History Patient History: Asthma SISTER Chronic obstructive pulmonary disease MOTHER Completed stroke FATHER Diabetes mellitus MOTHER FATHER ADDITIONAL PAST MEDICAL HISTORY: [HyperThyroidism, hypertension] SOCIAL HISTORY: [Patient smokes four cigarettes daily. Patient drinks alcohol once a month usually two beers that are12 oz each. positive marijuana use daily. Patient lives with his ex-. Patient is typically independent of all his ADLs. Patient denies difficulty pain is bills. SURGICAL HISTORY: [Right chest tube placement from prior pneumothorax] Review of Systems General: No Fever, No Chills, No Night Sweats, No Fatigue, No Malaise, No Appetite, No Other HEENT: No Head Aches, No Visual Changes, No Eye Pain, No Ear Pain, No Dysphasia, No Sinus Congestion, No Post Nasal Drip, No Sore Throat, No Other Pulmonary: No Dyspnea, No Cough, No Pleuritic Chest Pain, No Other Cardiovascular: No: Chest Pain, Palpitations, Orthopnea, Paroxysmal Noc. Dyspnea, Edema, Lt Headedness, Other Gastrointestinal: Nausea, Vomiting, Abdominal Pain; No: Diarrhea, Constipation, Melena, Hematochezia, Other Genitourinary: No Dysuria, No Frequency, No Incontinence, No Hematuria, No Retention, No Other Musculoskeletal: No: other, neck pain, shoulder pain, arm pain, back pain, hand pain, leg pain, foot pain Skin: No Urticaria, No Rash, No Other Neurological: No: Weakness, Numbness, Incoordination, Change in speech, Confusion, Seizures, Other Allergies: Coded Allergies: No Known Drug Allergies (Verified Allergy, Unknown, 03/08/18) Scheduled Amlodipine Besylate (Norvasc 5Mg Tab), 5 MG PO DAILY Exam Vital Signs Vital Signs Date Time Temp Pulse Resp B/P (MAP) Pulse Ox O2 Delivery O2 Flow Rate FiO2 06/08/25 19:24 98.1 128 26 167/99 99 Room Air* 0 21 General Appearance: Alert, Oriented X3, Cooperative, No acute distress HEENT: Atraumatic, PERRLA, EOMI Respiratory: Clear to auscultation, Normal air movement, NL respiratory effort Cardiovascular: Normal S1, Normal S2, Other (Positive tachycardia) Abdominal: Normal bowel sounds, Soft, No tenderness Extremities: No edema Skin: No significant lesion Neuro: Normal gait, Normal speech, Strength at 5/5 X4 ext, Sensation intact, Cranial nerves 3-12 NL Psych/Mental Status: Mental status NL, Mood NL, Thoughts/Content NL Assessment/Plan ASSESSMENT: [ Thyrotoxicosis, POA Abdominal pain, POA Nausea and vomiting, POA Dehydration with lactic acidosis, POA Tachycardia, POA Mild hyponatremia, POA Elevated creatinine kinase, POA Marijuana use, possible cannabinoid hyperemesis, POA Medical noncompliance Hypertension] PLAN: [ Admit patient to medical floor as inpatient status. Place patient on telemetry monitoring. Patient has significant biochemical thyrotoxicosis with sinus tachycardia and GI symptoms but was not meet criteria for thyroid storm. Patient is currently afebrile, mentating normally, hemodynamically stable, and without arrhythmia or heart failure. Propranolol 20 mg every 6 hours titrate to keep heart rate less than 100 Methimazole 20 mg by mouth every 8 hours Monitor heart rate, blood pressure, and temperature Avoid iodinated contrast unless absolutely necessary Keep patient NPO Advance diet as tolerated IV fluids 0.9% NS at 125 mL/HR As-needed Zofran Repeat lactic acid in a.m. Counseled patient on marijuana cessation Consult patient on medication adherence GI prophylaxis, famotidine DVT prophylaxis, Lovenox ADVANCED CARE PLANNING 1. Which of the following were discussed? Hospice Care - Yes Therapeutic options - yes Advance Directives - Yes - patient states he does not have any advance directives in place at this time, however his ex-, Shavon Wu can make decisions for him if he becomes unable. Other discussions - patient wishes to remain a full code at this time 2. Discussed with who? Patient 3. Voluntary nature of this service was explained to the patient? Yes 4. Amount of time spent - ___16 minutes____ 5. Reviewed by Physician? (if this service was performed by NPP) Yes This document was generated in part using voice recognition software, occasional wrong word or sound alike substitutions may have occurred due to the inherent limitations of voice recognition software. Read the chart carefully and recognize using context, where the substitutions have occurred. Although every effort was made to edit the content, flying shear operator and typing errors may occur ATTESTATION BY PHYSICIAN I have seen and examined the patient. I reviewed the documentation, medical decision making, and treatment plan as noted by the mid-level provider above. I agree with the findings and plan of care. ] BASSEM BARNES [facility] Jun 08, 2025 21:08
[2025-06-08] MEDS ORDERED: PROPRANOLOL HCL 20 MG TAB PO PRN (21:30)
[2025-06-08] MEDS ORDERED: LACTULOSE 20 GM/30 ML UDCUP PO PRN (21:30)
[2025-06-08] MEDS: 0.9%NACL 1000ML 1,000 ML IV SCH ×2 (21:48→23:19)
--- NOTE | 2025-06-09 00:01 | NUR ---
LOS LUEVANO AT BEDSIDE AT THIS TIME
[2025-06-09 05:36] LABS: IMMATURE GRANULOCYTE ABSOLUTE 0.05 K/uL (0-1); NUCLEATED RED BLOOD CELLS 0.0 % (0.0-0.19); PLATELET COUNT (AUTO) 273 K/uL (130-400); RED BLOOD CELL COUNT(AUTO) 5.06 MIL/uL (4.50-6.20); RED CELL DISTRIBUTION WIDTH 12.3 % (11.0-15.5); WHITE BLOOD COUNT (AUTO) 13.4 K/uL (4.8-10.8)
[2025-06-09 05:53] LABS: CREATINE KINASE, TOTAL 209.0 U/L (21-232); CREATININE 0.7 mg/dL (0.5-1.3); GLOMERULAR FILTR. RATE CALC 121.0 mL/min (>90); GLUCOSE,RANDOM 112.0 mg/dL (70-105); PHOSPHORUS 2.9 mg/dL (2.5-4.9); SODIUM SERUM 136.0 mmol/L (136-145); UREA NITROGEN, BLOOD 26.0 mg/dL (7-18)
--- NOTE | 2025-06-09 07:06 | NUR ---
REPORT GIVEN TO LORI SEO AT THIS TIME
[2025-06-09] MEDS: FAMOTIDINE 20MG TAB PO SCH (08:32)
[2025-06-09] MEDS: ENOXAPARIN SODIUM 40 MG/0.4 ML SYRINGE SQ SCH (08:32)
--- NOTE | 2025-06-09 14:37 | PN ---
[facility] PROGRESS NOTE Date of Service: Jun 09, 2025 Time of Service: 14:18 SUBJECTIVE: Mr. Negrete is a 39-year-old male who presents to the emergency department with the abdominal discomfort associated with nausea and vomiting that has been ongoing for two days prior to presentation. Symptoms are persistent and associated with poor oral intake and dehydration. Patient denies hematemesis, melena, hematochezia, dysuria, hematuria, fever or chills. Emergency department evaluation revealed significant biochemical thyrotoxicosis with suppressed TSH and markedly elevated free T4 along with sinus tachycardia, metabolic derangements and elevated lactate, prompting admission for further management. Patient denies chest pain or shortness and breath. Patient remains alert and oriented, afebrile and hemodynamically stable. Urine toxicology is positive for THC raising concern for possible contribution from cannabinoid related GI symptoms. Patient reports outpatient use of methimazole but states he has not been taking it recently. 06/09-patient was seen at the bedside, stable and oriented. Early this morning had nausea and vomitings, which has improved. Suspected cannabinoid hyperemesis syndrome, patient says his last smoke was 5 days ago. His urine ketones were positive, probable starvation ketosis. Started on D5 NS, and clear liquid diets advance as tolerated. Continuing on methimazole and propranolol. REVIEW OF SYSTEMS CONSTITUTIONAL: Denies fevers, chills, or night sweats. No unintentional weight loss reported. NEUROLOGICAL: Denies headache, amaurosis fugax, motor weakness, sensory deficit, vertigo/spinning sensation, gait abnormalities, or tremors. ENT: No hearing loss, otalgia, otorrhea, rhinitis, rhinorrhea, hoarseness, or sore throat. CARDIOVASCULAR: Denies any exertional angina, dyspnea on exertion, orthopnea, paroxysmal nocturnal dyspnea, palpitations, life-threatening arrhythmias, claudication. PULMONARY: Denies any shortness of breath, cough, phlegm/sputum, hemoptysis, pleuritic chest pain. SLEEP: Denies morning headaches, daytime somnolence or napping. Denies difficulty falling asleep, staying asleep, waking from sleep. Denies knowledge of snoring. GASTROINTESTINAL: Denies any type of dysphagia to either liquids or solids. Denies nausea, vomiting, pyrosis, early satiety, abdominal pain, diarrhea, constipation, or changes in stool consistency or caliber. Denies coffee-ground emesis, hematemesis, hematochezia, or melanotic stools. GENITOURINARY: Denies frequency, urgency, nocturia, hematuria or incontinence (Storage/Irritative symptoms.) Low urinary stream, straining to void, urinary intermittency or hesitancy, splitting of the voiding stream, terminal dribbling. ENDOCRINOLOGIC: Denies polyuria, polydipsia, polyphagia or heat/cold intolerances. HEMATOLOGIC: Denies thrombophilia/previous clots, or coagulopathy/bleeding disorders. ONCOLOGIC: Denies personal history of malignancy. DERMATOLOGIC: Denies rashes or pruritus. PSYCHIATRIC: Denies any suicidal or homicidal ideation. Denies hallucinations. PHYSICAL EXAM GENERAL APPEARANCE: The patient is awake, alert, and oriented, in no acute cardiopulmonary distress. NEUROLOGICAL: Cranial nerves II-XII grossly intact. Motor is 5/5 in bilateral upper and lower extremities proximal to distal. No sensory deficits. HEENT: Face is symmetric. Pupils are equal and reactive. Extraocular movements are intact. NECK: Supple. No JVD. No thyromegaly. No submental, submandibular, pre- /postauricular, occipital or supraclavicular lymphadenopathy. CHEST: Normal chest expansion. No Telemetry. LUNGS: Absence of any rales, rhonchi or any wheezing. CARDIOVASCULAR: Regular. S1 and S2 normal. No appreciable rubs, murmurs or gallops. ABDOMEN: Soft, nontender, and nondistended. There is no rebound, voluntary guarding, or rigidity. : Deferred. No [place]. EXTREMITIES: Non-edematous and not cyanotic. No clubbing. Good capillary refill. SKIN: No skin breakdown. Vital Signs (last 8hr) Date Time Temp Pulse Resp B/P (MAP) Pulse Ox O2 Delivery O2 Flow Rate FiO2 06/09/25 12:00 97.9 99 22 136/66 99 Room Air* 0 21 06/09/25 08:02 97.5 92 20 146/69 100 Room Air* 0 21 06/09/25 07:05 89 22 127/73 98 Room Air* 0 21 LABS: Laboratory: Test 06/09/25 05:25 06/08/25 18:58 06/08/25 17:50 Range/Units White Blood Count 13.4 #H 4.8-10.8 K/uL Red Blood Count 5.06 4.50-6.20 MIL/uL Hemoglobin 15.3 14.0-18.0 g/dL Hematocrit 44.5 42-54 % Mean Corpuscular Volume 87.9 79-99 fL Mean Corpuscular Hemoglobin 30.2 27.0-33.0 pg Mean Corpuscular Hemoglobin Concent 34.4 32.0-36.0 g/dL Red Cell Distribution Width 12.3 11.0-15.5 % Platelet Count 273 130-400 K/uL Mean Platelet Volume 9.1 7.5-10.5 fL Immature Granulocyte % (Auto) 0.4 0-1 % Neutrophils (%) (Auto) 82.7 H 40.0-77.0 % Lymphocytes (%) (Auto) 8.9 L 21.0-51.0 % Monocytes (%) (Auto) 6.3 3.0-13.0 % Eosinophils (%) (Auto) 1.6 0.0-8.0 % Basophils (%) (Auto) 0.1 0.0-5.0 % Neutrophils # (Auto) 11.1 H 1.8-7.7 K/uL Lymphocytes # (Auto) 1.2 1.0-4.8 K/uL Monocytes # (Auto) 0.8 0.1-1.0 K/uL Eosinophils # (Auto) 0.22 0.00-0.70 K/uL Basophils # (Auto) 0.01 0.00-0.20 K/uL Absolute Immature Granulocyte (auto 0.05 0-1 K/uL Nucleated Red Blood Cells 0.0 0.0-0.19 % White Cell Morphology Comment See comments Sodium Level 136 136-145 mmol/L Potassium Level 4.1 3.5-5.1 mmol/L Chloride Level 98 L 101-111 mmol/L Carbon Dioxide Level 25 21-32 mmol/L Blood Urea Nitrogen 26 H 7-18 mg/dL Creatinine 0.7 0.5-1.3 mg/dL Glomerular Filtration Rate Calc 121 >90 mL/min Random Glucose 112 H 70-105 mg/dL Lactic Acid Level 1.8 0.8-2.5 mmol/L Total Calcium 8.5 8.5-10.1 mg/dL Phosphorus Level 2.9 2.5-4.9 mg/dL Magnesium Level 2.00 1.80-2.40 mg/dL Total Creatine Kinase 209 # 21-232 U/L Urine Color LIGHT-YELLOW YELLOW Urine Appearance CLEAR CLEAR Urine pH 5.5 5.0-8.0 Urine Specific [place] 1.019 1.001-1.031 Urine Protein NEGATIVE NEGATIVE mg/dL Urine Glucose (UA) NEGATIVE NEGATIVE mg/dL Urine Ketones 150 H NEGATIVE mg/dL Urine Occult Blood NEGATIVE NEGATIVE Urine Nitrate NEGATIVE NEGATIVE Urine Bilirubin NEGATIVE NEGATIVE mg/dL Urine Urobilinogen 0.2 0.2-1.0 mg/dL Urine Leukocyte Esterase NEGATIVE NEGATIVE Eduardo/uL Urine Opiates Screen NEGATIVE NEGATIVE Urine Barbiturates Screen NEGATIVE NEGATIVE Urine Phencyclidine Screen NEGATIVE NEGATIVE Urine Amphetamines Screen NEGATIVE NEGATIVE Urine Benzodiazepines Screen NEGATIVE NEGATIVE Urine Cocaine Screen NEGATIVE NEGATIVE Urine Marijuana (THC) Screen POSITIVE H NEGATIVE Troponin I High Sensitivity 55 4-75 ng/L Thyroid Stimulating Hormone (TSH) < 0.01 L 0.36-3.74 uIU/mL Free Thyroxine (T4) Direct 4.94 H 0.76-1.46 ng/dL Current Medications Medications (Trade) Dose Ordered Sig/Jodi Route PRN Reason Start Time Stop Time Status Last Admin Dose Admin Acetaminophen (TYLenol 325MG TAB) 650 mg Q6H PRN PO TEMPERATURE GREATER THAN 101.5 06/08/25 21:30 07/08/25 21:29 Dextrose/Sodium Chloride 1,000 ml @ 100 mls/hr Q10H IV 06/09/25 14:00 07/09/25 13:59 Enoxaparin Sodium (Lovenox) 40 mg DAILY SQ 06/09/25 09:00 07/09/25 08:59 06/09/25 08:32 40 MG Famotidine (Pepcid 20mg Tab) 20 mg DAILY PO 06/09/25 09:00 07/09/25 08:59 06/09/25 08:32 20 MG Hydralazine HCl (APRESOLine 20MG INJ) 10 mg Q6H PRN IV For:SBP above 160;DBP above 90 06/08/25 21:30 07/08/25 21:29 Lactulose (Constulose 20gm/ 30ml Udcup) 20 gm BID PRN PO CONSTIPATION 06/08/25 21:30 07/08/25 21:29 Methimazole (tapaZOLE) 10 mg ONCE PO 06/08/25 20:00 06/08/25 21:17 DC 06/08/25 20:16 10 MG Methimazole (tapaZOLE) 20 mg Q8H PO 06/09/25 03:00 07/09/25 02:59 06/09/25 11:42 20 MG Morphine Sulfate (morPHINE 4MG SYG) 4 mg Q4H PRN IVP SEVERE PAIN (7-10) 06/08/25 21:30 06/15/25 21:29 Ondansetron HCl (zoFRAN 4MG INJ) 4 mg Q6H PRN IV NAUSEA/VOMITING 06/08/25 21:30 07/08/25 21:29 Propranolol HCl (Inderal) 20 mg Q6H PRN PO HR > 100 BPM 06/08/25 21:30 07/08/25 21:29 Propranolol HCl (Inderal) 40 mg ONCE PO 06/08/25 20:00 06/08/25 21:17 DC 06/08/25 20:17 40 MG Sodium Chloride 1,000 ml @ 0 mls/hr ONCE IV 06/08/25 20:00 06/08/25 23:30 DC 06/08/25 21:48 1,000 MLS/HR Sodium Chloride 1,000 ml @ 125 mls/hr Q8H IV 06/08/25 21:30 06/09/25 13:54 DC 06/09/25 07:03 125 MLS/HR Sodium Chloride 1,878 ml @ 626 mls/hr ONCE IV 06/08/25 18:00 06/09/25 13:01 DC 06/08/25 17:56 626 MLS/HR DIAGNOSTICS / RADIOLOGY: [ ] ASSESSMENT: Thyrotoxicosis, POA Abdominal pain, POA Dehydration with lactic acidosis, POA Tachycardia, POA Mild hyponatremia, POA Elevated creatinine kinase, POA Marijuana use, possible cannabinoid hyperemesis, POA Medical noncompliance Hypertension] PLAN: Thyrotoxicosis -continue methimazole and propranolol. -TSH 0.01 and free T4 4.94. -patient says he has not been taking his medications for a while. -vitals stable no tachycardia Dehydration with lactic acidosis -current lactic acid 1.8, no signs of infection -on D5 NS -creatinine kinase down to 209 from 414. -electrolytes within normal range Marijuana use possible cannabinoid hyperemesis -His nausea and vomiting are much improved. -continue on fluids -advance diet as tolerated -Toxicology positive for marijuana -DVT and GI prophylaxis ATTESTATION BY PHYSICIAN I have seen and examined the patient. I reviewed the documentation, medical dec ision making, and treatment plan as noted by the resident physician above. I agree with the findings and plan of care. MD FAROOQ Sykes IV, AISHWARYA MD Jun 09, 2025 14:37
[2025-06-09] MEDS: DEXTROSE 5 % AND 0.9 % NACL 1,000 ML IV SCH (15:14)
--- NOTE | 2025-06-09 15:33 | NUR ---
REPORT GIVEN TO ABI SEO.
[2025-06-09 16:00] VITALS: BP 145/99; PULSE 81; RESP 18; TEMP 97.7
--- NOTE | 2025-06-09 16:11 | EKG ---
[facility] Test Date: 2025-06-08 Test Time: 17:37:02 Pat Name: LESLIE CALHOUN Department: [facility] Room: 307 1 Gender: M Grades 1 6 Tutor: [id number] : 1985 Requested By: TIMMY SILVA Order Number: [id number] Reading MD: Jerzy Frost Measurements Intervals [place] Rate: 123 P: 75 [place]: 111 QRS: 70 QRSD: 77 T: 34 QT: 325 QTc: 465 Interpretive Statements Sinus tachycardia Consider left ventricular hypertrophy Anterior ST elevation, probably due to LVH Compared to ECG 05/01/2025 08:52:41 Possible ischemia now present Left ventricular hypertrophy now present ST (T wave) deviation now present Sinus rhythm no longer present Electronically Signed On 06-10-2025 20:03:15 BOOSTER PLANT OPERATOR by Jerzy Frost Please click the below link to view image of tracing.
[2025-06-09 20:00] VITALS: BP 138/95; PULSE 114; RESP 18; TEMP 98.5; O2SAT 98
[2025-06-10] VITALS: BP 163/88; PULSE 93; RESP 18; TEMP 98
[2025-06-10 04:00] VITALS: BP 157/95; PULSE 94; RESP 18; TEMP 97.9
[2025-06-10 06:52] LABS: IMMATURE GRANULOCYTE ABSOLUTE 0.02 K/uL (0-1); NUCLEATED RED BLOOD CELLS 0.0 % (0.0-0.19); PLATELET COUNT (AUTO) 228 K/uL (130-400); RED BLOOD CELL COUNT(AUTO) 4.69 MIL/uL (4.50-6.20); RED CELL DISTRIBUTION WIDTH 11.9 % (11.0-15.5); WHITE BLOOD COUNT (AUTO) 7.2 K/uL (4.8-10.8)
[2025-06-10 07:24] LABS: CREATININE 0.5 mg/dL (0.5-1.3); GLOMERULAR FILTR. RATE CALC 134 mL/min (>90); GLUCOSE,RANDOM 132 mg/dL (70-105); SODIUM SERUM 139 mmol/L (136-145); UREA NITROGEN, BLOOD 9 mg/dL (7-18)
[2025-06-10 08:00] VITALS: BP 166/109; PULSE 96; RESP 19; TEMP 98
[2025-06-10] MEDS ORDERED: PoTASSium chl 10% ELIXIR 20MEQ 20 MEQ/15 ML UDCUP PO PRN (08:30)
[2025-06-10 08:49] LABS: PHOSPHORUS 2.6 mg/dL (2.5-4.9)
[2025-06-10 09:55] LABS: CREATININE 0.5 mg/dL (0.5-1.3); GLOMERULAR FILTR. RATE CALC 134.0 mL/min (>90); GLUCOSE,RANDOM 130.0 mg/dL (70-105); SODIUM SERUM 139.0 mmol/L (136-145); UREA NITROGEN, BLOOD 9.0 mg/dL (7-18)
[2025-06-10] MEDS: THIAMINE HCL 100 MG TABLET PO SCH (10:06)
--- NOTE | 2025-06-10 10:16 | NUR ---
DCP:HOME Pt currently lives at home with his aunt. Pt states that he has a wheelchair and cane at home. Pt denies any home health or provider services. Pt refused any community resources. At DC pt will want to go home and family can assist with transportation.
--- NOTE | 2025-06-10 11:28 | EKG ---
[facility] Test Date: 2025-06-10 Test Time: 11:27:26 Pat Name: LESLIE CALHOUN Department: [facility] Room: 307 1 Gender: M Lead Manufacturing Technician: Rufina : 1985 Requested By: LETICIA LEDEZMA Order Number: [id number] Reading MD: Jerzy Frost Measurements Intervals [place] Rate: 104 P: 71 CT: 128 QRS: 72 QRSD: 76 T: 57 QT: 370 QTc: 486 Interpretive Statements Sinus tachycardia with premature supraventricular complexes Compared to ECG 06/08/2025 17:37:02 Atrial premature complex(es) now present Possible ischemia no longer present Left ventricular hypertrophy no longer present ST (T wave) deviation no longer present Electronically Signed On 06-10-2025 20:13:19 SHIP SURVEYOR by Jerzy Frost Please click the below link to view image of tracing.
[2025-06-10 12:00] VITALS: BP 148/76; PULSE 106; RESP 20; TEMP 98.1
--- NOTE | 2025-06-10 12:07 | CONS ---
CONSULT NOTE: Endocrinology Consult Chief complaint:nausea and vomiting Reason for consult: hyperthyroidism DOS: 06/10/25 HISTORY OF PRESENT ILLNESS: Mr. Negrete is a 39-year-old male who presents to the emergency department with the abdominal discomfort associated with nausea and vomiting that has been ongoing for two days prior to presentation. Symptoms are persistent and associated with poor oral intake and dehydration. Patient denies hematemesis, melena, hematochezia, dysuria, hematuria, fever or chills. Emergency department evaluation revealed significant biochemical thyrotoxicosis with suppressed TSH and markedly elevated free T4 along with sinus tachycardia, metabolic derangements and elevated lactate, prompting admission for further management. Patient denies chest pain or shortness and breath. Patient remains alert and oriented, afebrile and hemodynamically stable. Urine toxicology is positive for THC raising concern for possible contribution from cannabinoid related GI symptoms. Patient reports outpatient use of methimazole but states he has not been taking it recently. current regimen: patient was on methimazole 10 mg tid but did nit take for more than 2 weeks. clinically and biochemically thyrotoxic and lost 30 lbs weight, tsh <0.01, t 4 free 4.94, Past Medical History Patient History: Asthma SISTER Chronic obstructive pulmonary disease MOTHER Completed stroke FATHER Diabetes mellitus MOTHER FATHER ADDITIONAL PAST MEDICAL HISTORY: [HyperThyroidism, hypertension] SOCIAL HISTORY: [Patient smokes four cigarettes daily. Patient drinks alcohol once a month usually two beers that are12 oz each. positive marijuana use daily. Patient lives with his ex-. Patient is typically independent of all his ADLs. Patient denies difficulty pain is bills. SURGICAL HISTORY: [Right chest tube placement from prior pneumothorax] Review of Systems General: No Fever, No Chills, No Night Sweats, No Fatigue, No Malaise, No Appetite, No Other HEENT: No Head Aches, No Visual Changes, No Eye Pain, No Ear Pain, No Dysphasia, No Sinus Congestion, No Post Nasal Drip, No Sore Throat, No Other Pulmonary: No Dyspnea, No Cough, No Pleuritic Chest Pain, No Other Cardiovascular: No: Chest Pain, Palpitations, Orthopnea, Paroxysmal Noc. Dyspnea, Edema, Lt Headedness, Other Gastrointestinal: Nausea, Vomiting, Abdominal Pain; No: Diarrhea, Constipation, Melena, Hematochezia, Other Genitourinary: No Dysuria, No Frequency, No Incontinence, No Hematuria, No Retention, No Other Musculoskeletal: No: other, neck pain, shoulder pain, arm pain, back pain, hand pain, leg pain, foot pain Skin: No Urticaria, No Rash, No Other Neurological: No: Weakness, Numbness, Incoordination, Change in speech, Confusion, Seizures, Other Allergies: Coded Allergies: No Known Drug Allergies (Verified Allergy, Unknown, 03/08/18) Scheduled Amlodipine Besylate (Norvasc 5Mg Tab), 5 MG PO DAILY Exam Vital Signs Vital Signs General Appearance: Alert, Oriented X3, Cooperative, No acute distress HEENT: Atraumatic, PERRLA, EOMI Respiratory: Clear to auscultation, Normal air movement, NL respiratory effort Cardiovascular: Normal S1, Normal S2, Other (Positive tachycardia) Abdominal: Normal bowel sounds, Soft, No tenderness Extremities: No edema Skin: No significant lesion Neuro: Normal gait, Normal speech, Strength at 5/5 X4 ext, Sensation intact, Cranial nerves 3-12 NL Psych/M ASSESSMENT: Hyperthyroidism noncompliant with medication methimazole-no thyroid storm he has hyperthyroidism for many years and use take methimazole 10 mg tid for many years but ran out recently. denies goiter or exophthalmos.weight loss of more than 20 lbs weight due to hyperthyroidism. nausea/vomiting resolved. he is AAOX3 and tolerates po intake now. Dehydration POA improving Hyponatremia likely due to dehydration- improving Marijuana use Tobacco use PLAN: adjust methimazole 10 mg tid. repeat thyroid labs in 1 month. recommend thyroid u/s patient was educated that will benefit from definitive hyperthyroidism treatment as outpatient. Vital Signs 06/09/25 06/10/25 06/10/25 20:00 08:00 10:45 Temp 98.1 Pulse 96 Resp 19 B/P (MAP) 166/109 Pulse Ox 100 O2 Delivery Room Air O2 Flow Rate 0 FiO2 21 Hematology Labs: Test 06/10/25 06:46 06/09/25 05:25 Range/Units White Blood Count 7.2 4.8-10.8 K/uL Red Blood Count 4.69 4.50-6.20 MIL/uL Hemoglobin 14.2 14.0-18.0 g/dL Hematocrit 40.8 L 42-54 % Mean Corpuscular Volume 87.0 79-99 fL Mean Corpuscular Hemoglobin 30.3 27.0-33.0 pg Mean Corpuscular Hemoglobin Concent 34.8 32.0-36.0 g/dL Red Cell Distribution Width 11.9 11.0-15.5 % Platelet Count 228 130-400 K/uL Mean Platelet Volume 9.5 7.5-10.5 fL Immature Granulocyte % (Auto) 0.3 0-1 % Neutrophils (%) (Auto) 65.5 40.0-77.0 % Lymphocytes (%) (Auto) 21.1 21.0-51.0 % Monocytes (%) (Auto) 8.4 3.0-13.0 % Eosinophils (%) (Auto) 4.7 0.0-8.0 % Basophils (%) (Auto) 0.0 0.0-5.0 % Neutrophils # (Auto) 4.7 1.8-7.7 K/uL Lymphocytes # (Auto) 1.5 1.0-4.8 K/uL Monocytes # (Auto) 0.6 0.1-1.0 K/uL Eosinophils # (Auto) 0.34 0.00-0.70 K/uL Basophils # (Auto) 0.00 0.00-0.20 K/uL Absolute Immature Granulocyte (auto 0.02 0-1 K/uL Nucleated Red Blood Cells 0.0 0.0-0.19 % White Cell Morphology Comment See comments Chemistry Labs: Test 06/10/25 06:46 06/09/25 14:16 06/09/25 05:25 06/08/25 17:50 Range/Units Sodium Level 139 136-145 mmol/L Potassium Level 3.0 *L 3.5-5.1 mmol/L Chloride Level 99 L 101-111 mmol/L Carbon Dioxide Level 33 H 21-32 mmol/L Blood Urea Nitrogen 9 7-18 mg/dL Creatinine 0.5 0.5-1.3 mg/dL Glomerular Filtration Rate Calc 134 >90 mL/min Random Glucose 130 H 70-105 mg/dL Total Calcium 8.5 8.5-10.1 mg/dL Phosphorus Level 2.6 2.5-4.9 mg/dL Magnesium Level 1.80 1.80-2.40 mg/dL Thyroid Stimulating Hormone (TSH) < 0.01 L 0.36-3.74 uIU/mL Whole Blood Ketones Quantitative 4.0 H 0.0-0.6 mmol/L Lactic Acid Level 1.8 0.8-2.5 mmol/L Total Creatine Kinase 209 # 21-232 U/L Troponin I High Sensitivity 55 4-75 ng/L Free Thyroxine (T4) Direct 4.94 H 0.76-1.46 ng/dL Current Medications Medications (Trade) Dose Ordered Sig/Jodi Route Start Time Stop Time Status Last Admin Dose Admin Amlodipine Besylate (NorvASC 5MG TAB) 5 mg DAILY PO 06/11/25 09:00 07/11/25 08:59 Dextrose/Sodium Chloride 1,000 ml @ 100 mls/hr Q10H IV 06/09/25 14:00 07/09/25 13:59 06/09/25 15:14 100 MLS/HR Enoxaparin Sodium (Lovenox) 40 mg DAILY SQ 06/09/25 09:00 07/09/25 08:59 06/10/25 10:07 40 MG Famotidine (Pepcid 20mg Tab) 20 mg DAILY PO 06/09/25 09:00 07/09/25 08:59 06/10/25 10:06 20 MG Methimazole (tapaZOLE) 10 mg ONCE PO 06/08/25 20:00 06/08/25 21:17 DC 06/08/25 20:16 10 MG Methimazole (tapaZOLE) 20 mg Q8H PO 06/09/25 03:00 07/09/25 02:59 06/10/25 10:06 20 MG Propranolol HCl (Inderal) 20 mg Q8H5 PO 06/10/25 13:00 07/08/25 21:29 Propranolol HCl (Inderal) 40 mg ONCE PO 06/08/25 20:00 06/08/25 21:17 DC 06/08/25 20:17 40 MG Sodium Chloride 1,000 ml @ 0 mls/hr ONCE IV 06/08/25 20:00 06/08/25 23:30 DC 06/08/25 21:48 1,000 MLS/HR Sodium Chloride 1,000 ml @ 125 mls/hr Q8H IV 06/08/25 21:30 06/09/25 13:54 DC 06/09/25 07:03 125 MLS/HR Sodium Chloride 1,878 ml @ 626 mls/hr ONCE IV 06/08/25 18:00 06/09/25 13:01 DC 06/08/25 17:56 626 MLS/HR Thiamine HCl (Vitamin B-1) 100 mg DAILY PO 06/10/25 09:00 07/10/25 08:59 06/10/25 10:06 100 MG RADHA TSANG MD Jun 10, 2025 12:07
--- NOTE | 2025-06-10 13:22 | PN ---
[facility] PROGRESS NOTE Date of Service: Jun 10, 2025 Time of Service: 12:56 SUBJECTIVE: Mr. Negrete is a 39-year-old male who presents to the emergency department with the abdominal discomfort associated with nausea and vomiting that has been ongoing for two days prior to presentation. Symptoms are persistent and associated with poor oral intake and dehydration. Patient denies hematemesis, melena, hematochezia, dysuria, hematuria, fever or chills. Emergency department evaluation revealed significant biochemical thyrotoxicosis with suppressed TSH and markedly elevated free T4 along with sinus tachycardia, metabolic derangements and elevated lactate, prompting admission for further management. Patient denies chest pain or shortness and breath. Patient remains alert and oriented, afebrile and hemodynamically stable. Urine toxicology is positive for THC raising concern for possible contribution from cannabinoid related GI symptoms. Patient reports outpatient use of methimazole but states he has not been taking it recently. 06/09-patient was seen at the bedside, stable and oriented. Early this morning had nausea and vomitings, which has improved. Suspected cannabinoid hyperemesis syndrome, patient says his last smoke was 5 days ago. His urine ketones were positive, probable starvation ketosis. Started on D5 NS, and clear liquid diets advance as tolerated. Continuing on methimazole and propranolol. 06/10/2025: He was evaluated at the bedside this morning. AAO x3. overnight event.. He will complain of mild itchy rashes on the body. He is hemodynamically stable with blood pressure 157/95. Remarkable for potassium 3.9, bicarbonate , ketone 4, magnesium 1.8, phosphorus 2.6. He is treated for thyrotoxicosis with methimazole and propranolol. For starvation ketosis we have started him on D5 NS at 100 mL/hour. Looking at his clinical picture, we are also considering chances of having refeeding syndrome.. We will aggressively replete electrolytes and keep eye on them. We will consult nutrition for gradual advancement of the diet. We will get Endocrinology board. We will keep eye on EKG with ongoing multiple electrolyte abnormalities. For the itchy rash we will give him 50 mg of oral Benadryl and see the response. REVIEW OF SYSTEMS CONSTITUTIONAL: Denies fevers, chills, or night sweats. No unintentional weight loss reported. NEUROLOGICAL: Denies headache, amaurosis fugax, motor weakness, sensory deficit, vertigo/spinning sensation, gait abnormalities, or tremors. ENT: No hearing loss, otalgia, otorrhea, rhinitis, rhinorrhea, hoarseness, or sore throat. CARDIOVASCULAR: Denies any exertional angina, dyspnea on exertion, orthopnea, paroxysmal nocturnal dyspnea, palpitations, life-threatening arrhythmias, claudication. PULMONARY: Denies any shortness of breath, cough, phlegm/sputum, hemoptysis, pleuritic chest pain. SLEEP: Denies morning headaches, daytime somnolence or napping. Denies difficulty falling asleep, staying asleep, waking from sleep. Denies knowledge of snoring. GASTROINTESTINAL: Denies any type of dysphagia to either liquids or solids. Denies nausea, vomiting, pyrosis, early satiety, abdominal pain, diarrhea, constipation, or changes in stool consistency or caliber. Denies coffee-ground emesis, hematemesis, hematochezia, or melanotic stools. GENITOURINARY: Denies frequency, urgency, nocturia, hematuria or incontinence (Storage/Irritative symptoms.) Low urinary stream, straining to void, urinary intermittency or hesitancy, splitting of the voiding stream, terminal dribbling. ENDOCRINOLOGIC: Denies polyuria, polydipsia, polyphagia or heat/cold intolerances. HEMATOLOGIC: Denies thrombophilia/previous clots, or coagulopathy/bleeding disorders. ONCOLOGIC: Denies personal history of malignancy. DERMATOLOGIC: Denies rashes or pruritus. PSYCHIATRIC: Denies any suicidal or homicidal ideation. Denies hallucinations. PHYSICAL EXAM GENERAL APPEARANCE: The patient is awake, alert, and oriented, in no acute cardiopulmonary distress. NEUROLOGICAL: Cranial nerves II-XII grossly intact. Motor is 5/5 in bilateral upper and lower extremities proximal to distal. No sensory deficits. HEENT: Face is symmetric. Pupils are equal and reactive. Extraocular movements are intact. NECK: Supple. No JVD. No thyromegaly. No submental, submandibular, pre- /postauricular, occipital or supraclavicular lymphadenopathy. CHEST: Normal chest expansion. No Telemetry. LUNGS: Absence of any rales, rhonchi or any wheezing. CARDIOVASCULAR: Regular. S1 and S2 normal. No appreciable rubs, murmurs or gallops. ABDOMEN: Soft, nontender, and nondistended. There is no rebound, voluntary guarding, or rigidity. : Deferred. No [place]. EXTREMITIES: Non-edematous and not cyanotic. No clubbing. Good capillary refill. SKIN: No skin breakdown. Vital Signs (last 8hr) Date Time Temp Pulse Resp B/P (MAP) Pulse Ox O2 Delivery O2 Flow Rate FiO2 06/10/25 10:45 96 166/109 06/10/25 08:00 98.1 96 19 166/109 100 Room Air 21 LABS: Laboratory: Test 06/10/25 06:46 06/09/25 14:16 06/09/25 05:25 06/08/25 18:58 Range/Units White Blood Count 7.2 4.8-10.8 K/uL Red Blood Count 4.69 4.50-6.20 MIL/uL Hemoglobin 14.2 14.0-18.0 g/dL Hematocrit 40.8 L 42-54 % Mean Corpuscular Volume 87.0 79-99 fL Mean Corpuscular Hemoglobin 30.3 27.0-33.0 pg Mean Corpuscular Hemoglobin Concent 34.8 32.0-36.0 g/dL Red Cell Distribution Width 11.9 11.0-15.5 % Platelet Count 228 130-400 K/uL Mean Platelet Volume 9.5 7.5-10.5 fL Immature Granulocyte % (Auto) 0.3 0-1 % Neutrophils (%) (Auto) 65.5 40.0-77.0 % Lymphocytes (%) (Auto) 21.1 21.0-51.0 % Monocytes (%) (Auto) 8.4 3.0-13.0 % Eosinophils (%) (Auto) 4.7 0.0-8.0 % Basophils (%) (Auto) 0.0 0.0-5.0 % Neutrophils # (Auto) 4.7 1.8-7.7 K/uL Lymphocytes # (Auto) 1.5 1.0-4.8 K/uL Monocytes # (Auto) 0.6 0.1-1.0 K/uL Eosinophils # (Auto) 0.34 0.00-0.70 K/uL Basophils # (Auto) 0.00 0.00-0.20 K/uL Absolute Immature Granulocyte (auto 0.02 0-1 K/uL Nucleated Red Blood Cells 0.0 0.0-0.19 % Sodium Level 139 136-145 mmol/L Potassium Level 3.0 *L 3.5-5.1 mmol/L Chloride Level 99 L 101-111 mmol/L Carbon Dioxide Level 33 H 21-32 mmol/L Blood Urea Nitrogen 9 7-18 mg/dL Creatinine 0.5 0.5-1.3 mg/dL Glomerular Filtration Rate Calc 134 >90 mL/min Random Glucose 130 H 70-105 mg/dL Total Calcium 8.5 8.5-10.1 mg/dL Phosphorus Level 2.6 2.5-4.9 mg/dL Magnesium Level 1.80 1.80-2.40 mg/dL Thyroid Stimulating Hormone (TSH) < 0.01 L 0.36-3.74 uIU/mL Whole Blood Ketones Quantitative 4.0 H 0.0-0.6 mmol/L White Cell Morphology Comment See comments Lactic Acid Level 1.8 0.8-2.5 mmol/L Total Creatine Kinase 209 # 21-232 U/L Urine Color LIGHT-YELLOW YELLOW Urine Appearance CLEAR CLEAR Urine pH 5.5 5.0-8.0 Urine Specific [place] 1.019 1.001-1.031 Urine Protein NEGATIVE NEGATIVE mg/dL Urine Glucose (UA) NEGATIVE NEGATIVE mg/dL Urine Ketones 150 H NEGATIVE mg/dL Urine Occult Blood NEGATIVE NEGATIVE Urine Nitrate NEGATIVE NEGATIVE Urine Bilirubin NEGATIVE NEGATIVE mg/dL Urine Urobilinogen 0.2 0.2-1.0 mg/dL Urine Leukocyte Esterase NEGATIVE NEGATIVE Eduardo/uL Urine Opiates Screen NEGATIVE NEGATIVE Urine Barbiturates Screen NEGATIVE NEGATIVE Urine Phencyclidine Screen NEGATIVE NEGATIVE Urine Amphetamines Screen NEGATIVE NEGATIVE Urine Benzodiazepines Screen NEGATIVE NEGATIVE Urine Cocaine Screen NEGATIVE NEGATIVE Urine Marijuana (THC) Screen POSITIVE H NEGATIVE Test 06/08/25 17:50 Range/Units Troponin I High Sensitivity 55 4-75 ng/L Free Thyroxine (T4) Direct 4.94 H 0.76-1.46 ng/dL Current Medications Medications (Trade) Dose Ordered Sig/Jodi Route PRN Reason Start Time Stop Time Status Last Admin Dose Admin Acetaminophen (TYLenol 325MG TAB) 650 mg Q6H PRN PO TEMPERATURE GREATER THAN 101.5 06/08/25 21:30 07/08/25 21:29 Amlodipine Besylate (NorvASC 5MG TAB) 5 mg DAILY PO 06/11/25 09:00 07/11/25 08:59 Dextrose/Sodium Chloride 1,000 ml @ 100 mls/hr Q10H IV 06/09/25 14:00 07/09/25 13:59 06/09/25 15:14 100 MLS/HR Diphenhydramine HCl (BENAdryl CREAM) 1 APPLICATION Q8H PRN TP RASH 06/10/25 11:30 07/10/25 11:29 Enoxaparin Sodium (Lovenox) 40 mg DAILY SQ 06/09/25 09:00 07/09/25 08:59 06/10/25 10:07 40 MG Famotidine (Pepcid 20mg Tab) 20 mg DAILY PO 06/09/25 09:00 07/09/25 08:59 06/10/25 10:06 20 MG Hydralazine HCl (APRESOLine 20MG INJ) 10 mg Q6H PRN IV For:SBP above 160;DBP above 90 06/08/25 21:30 07/08/25 21:29 06/10/25 10:45 10 MG Lactulose (Constulose 20gm/ 30ml Udcup) 20 gm BID PRN PO CONSTIPATION 06/08/25 21:30 07/08/25 21:29 Magnesium Sulfate 50 ml @ 0 mls/hr PROTOCOL PRN IV SLIDING SCALE COVERAGE 06/10/25 08:30 07/10/25 08:29 Methimazole (tapaZOLE) 10 mg ONCE PO 06/08/25 20:00 06/08/25 21:17 DC 06/08/25 20:16 10 MG Methimazole (tapaZOLE) 20 mg Q8H PO 06/09/25 03:00 07/09/25 02:59 06/10/25 10:06 20 MG Morphine Sulfate (morPHINE 4MG SYG) 4 mg Q4H PRN IVP SEVERE PAIN (7-10) 06/08/25 21:30 06/15/25 21:29 06/09/25 22:23 4 MG Ondansetron HCl (zoFRAN 4MG INJ) 4 mg Q6H PRN IV NAUSEA/VOMITING 06/08/25 21:30 07/08/25 21:29 06/10/25 03:09 4 MG Potassium Chloride 100 ml @ 100 mls/hr AD PRN IV POTASSIUM PROTOCOL 06/10/25 08:30 07/10/25 08:29 Potassium Chloride (K-Dur/Klor-Con 20meq) 20 meq AD PRN PO POTASSIUM PROTOCOL 06/10/25 08:30 07/10/25 08:29 Potassium Chloride (KCl 10% Elixir 20meq/15ml) 20 meq AD PRN PO POTASSIUM PROTOCOL 06/10/25 08:30 07/10/25 08:29 Propranolol HCl (Inderal) 20 mg Q6H PRN PO HR > 100 BPM 06/08/25 21:30 06/10/25 09:46 DC Propranolol HCl (Inderal) 20 mg Q8H5 PO 06/10/25 13:00 07/08/25 21:29 Propranolol HCl (Inderal) 40 mg ONCE PO 06/08/25 20:00 06/08/25 21:17 DC 06/08/25 20:17 40 MG Sodium Chloride 1,000 ml @ 0 mls/hr ONCE IV 06/08/25 20:00 06/08/25 23:30 DC 06/08/25 21:48 1,000 MLS/HR Sodium Chloride 1,000 ml @ 125 mls/hr Q8H IV 06/08/25 21:30 06/09/25 13:54 DC 06/09/25 07:03 125 MLS/HR Sodium Chloride 1,878 ml @ 626 mls/hr ONCE IV 06/08/25 18:00 06/09/25 13:01 DC 06/08/25 17:56 626 MLS/HR Thiamine HCl (Vitamin B-1) 100 mg DAILY PO 06/10/25 09:00 07/10/25 08:59 06/10/25 10:06 100 MG DIAGNOSTICS / RADIOLOGY: ASSESSMENT: Thyrotoxicosis, POA Abdominal pain, POA KETONEMIA, POA Dehydration with lactic acidosis, POA Tachycardia, POA Mild hyponatremia, POA Elevated creatinine kinase, POA Marijuana use, possible cannabinoid hyperemesis, POA Medical noncompliance Hypertension Electrolyte abnormality PLAN: Thyrotoxicosis -continue methimazole and propranolol 20 MG T.I.D.. -TSH 0.01 and free T4 4.94. -patient says he has not been taking his medications for a while. -we will get endocrinology on board. Dehydration with lactic acidosis -current lactic acid 1.8, no signs of infection -on D5 NS -creatinine kinase down to 209 from 414. -electrolytes within normal range Marijuana use possible cannabinoid hyperemesis -His nausea and vomiting are much improved. -continue on fluids -advance diet as tolerated -Toxicology positive for marijuana Ketonemia, POA -serum ketone 4, urinalysis positive for ketones. Ketonemia looks likely because of starvation ketosis along with multiple episode of vomiting. -started on D5 NS at 100 mL/hour and thiamine 100 mg daily -anion gap 7 -we will also consider consulting nutrition. We will advance diet gradually with the concern of refeeding syndrome. Electrolyte abnormalities -magnesium 1.8, potassium 2.9, phosphorus 2.6. -we will replete magnesium and potassium -DVT and GI prophylaxis by Lovenox and famotidine respectively. ATTESTATION BY PHYSICIAN I have seen and examined the patient. I reviewed the documentation, medical decision making, and treatment plan as noted by the resident physician above. I agree with the findings and plan of care. Rashad Stephenson IV, MD, SUNIL MD Jun 10, 2025 13:21
[2025-06-10] MEDS: PROPRANOLOL HCL 20 MG TAB PO SCH (14:38)
[2025-06-10] MEDS: PoTASSium chloRIDE 20MEQ ER 20 MEQ ERTAB PO PRN (14:38)
[2025-06-10 15:43] VITALS: O2SAT 100
[2025-06-10] MEDS: PoTASSium chl 10% ELIXIR 20MEQ 20 MEQ/15 ML UDCUP PO ONE (17:08)
[2025-06-10 17:55] LABS: CREATININE 0.5 mg/dL (0.5-1.3); GLOMERULAR FILTR. RATE CALC 134.0 mL/min (>90); GLUCOSE,RANDOM 140.0 mg/dL (70-105); SODIUM SERUM 140.0 mmol/L (136-145); UREA NITROGEN, BLOOD 7.0 mg/dL (7-18)
[2025-06-10 20:00] VITALS: BP 152/90; PULSE 81; RESP 20; TEMP 98.3; O2SAT 98
[2025-06-11 00:25] VITALS: BP 152/90; PULSE 70; RESP 20; TEMP 98.3
--- NOTE | 2025-06-11 03:16 | NUR ---
PAGED HOSPITALIST DYE FEEDER PENDING CALL BACK FROM [facility]
--- NOTE | 2025-06-11 03:29 | NUR ---
RECEIVED CALL BACK FROM [facility] [employer] TECH MADE AWARE PATIENT COMPLAINING OF SEVERE ABDOMINAL PAIN 04/05, N/O GIVEN FOR DILAUDID 0.5MG IV X1 DOSE.
[2025-06-11 04:50] VITALS: BP 143/78; PULSE 99; RESP 24; TEMP 98.5
[2025-06-11 05:08] LABS: IMMATURE GRANULOCYTE ABSOLUTE 0.03 K/uL (0-1); NUCLEATED RED BLOOD CELLS 0.0 % (0.0-0.19); PLATELET COUNT (AUTO) 269 K/uL (130-400); RED BLOOD CELL COUNT(AUTO) 5.39 MIL/uL (4.50-6.20); RED CELL DISTRIBUTION WIDTH 12.0 % (11.0-15.5); WHITE BLOOD COUNT (AUTO) 8.4 K/uL (4.8-10.8)
[2025-06-11 05:23] LABS: CREATININE 0.6 mg/dL (0.5-1.3); GLOMERULAR FILTR. RATE CALC 127.0 mL/min (>90); GLUCOSE,RANDOM 131.0 mg/dL (70-105); PHOSPHORUS 2.8 mg/dL (2.5-4.9); SODIUM SERUM 137.0 mmol/L (136-145); UREA NITROGEN, BLOOD 13.0 mg/dL (7-18)
[2025-06-11] MEDS: MAGNESIUM 2GM PREMIX 50ML 50 ML IV PRN (05:39)
[2025-06-11 08:00] VITALS: BP 138/89; PULSE 71; RESP 20; TEMP 97.5
--- NOTE | 2025-06-11 08:14 | NUR ---
INFORMED DR DARIEN LATHAM PATIENT HAS BEED SCREAMING AND CRYING THAT HE HAS "SEVERE ABDOMINAL CRAMPS AND A COLLAPSED LUNG". PATIENT SCREAMING LOUDLY AND CONTINUES PRESSING CALL LIGHT FOR "HEARTBURN". MD WILL BE ROUNDING SHORTLY TO SEE HIM
[2025-06-11] MEDS: amLODIPine 5 MG TAB PO SCH (09:02)
--- NOTE | 2025-06-11 09:06 | NUR ---
PATIENT REQUESTING "PAIN MEDS CAUSE HE CAN'T SLEEP" ALSO STATES "CAN'T BREATHE AND HAS CHEST PAIN". RESIDENT AWARE AND NEW ORDERS PLACED . TELE MONITOR CALLED FOR RATE/RHYTHM AND IS IN SINUS RHYTHM 85
--- NOTE | 2025-06-11 09:38 | EKG ---
[facility] Test Date: 2025-06-11 Test Time: 09:35:03 Pat Name: LESLIE CALHOUN Department: [facility] Room: 307 1 Gender: M Inlayer: [id number] : 1985 Requested By: LETICIA LEDEZMA Order Number: [id number] Reading MD: Esau Johnston Measurements Intervals Bath Rate: 87 P: 19 DE: 80 QRS: 39 QRSD: 68 T: 50 QT: 362 QTc: 435 Interpretive Statements Sinus rhythm with short DE Compared to ECG 06/10/2025 11:27:26 Short DE interval now present Sinus tachycardia no longer present Atrial premature complex(es) no longer present Electronically Signed On 06-11-2025 23:48:41 GLASS INSPECTOR by Esau Johnston Please click the below link to view image of tracing.
[2025-06-11] MEDS: MAG/ALUM/SIMETH 30 ML UDCUP PO ONE (10:24)
--- NOTE | 2025-06-11 10:28 | NUR ---
PATIENT CRYING/MOANING LOUDLY. DID ADMINISTER ATIVAN ORDERED. PATIENT ASKING "HOW LONG BEFORE IT PUTS HIM TO SLEEP".
[2025-06-11 11:09] VITALS: O2SAT 100
--- NOTE | 2025-06-11 12:00 | NUR ---
[id number] LEDEZMA THAT PATIENT REQUESTING TO LEAVE HE CALLED A FRIEND TO PICK HIM UP. STATED MEDS ARE NOT WORKING FOR HIM. AMA FORM SIGNED. IV REMOVED 1200 DR LEDEZMA AT BEDSIDE SPEAKING TO PATIENT RE: LEAVING AMA AND PATIENT CONCERNS
[2025-06-11 12:02] VITALS: BP 137/94; PULSE 120; RESP 20; TEMP 97.5
--- NOTE | 2025-06-11 12:10 | NUR ---
DR LEDEZMA SPOKE TO PATIENT; PATIENT STATED HE STILL WANTS TO LEAVE AMA "BUT WILL VCOME BACK TO THE HOSPITAL TOMORROW". RESIDENT WILL ELECTRONICALLY SEND IN SCRIPT OF PROPANOLOL AND METHIMAZOLE TO HIS PHARMACY [facility] [address]
--- NOTE | 2025-06-11 17:22 | DS ---
Discharge Summary Hospital Course Summary: Mr. Negrete is a 39-year-old male who presents to the emergency department with the abdominal discomfort associated with nausea and vomiting that has been ongoing for two days prior to presentation. Symptoms are persistent and associated with poor oral intake and dehydration. Patient denies hematemesis, melena, hematochezia, dysuria, hematuria, fever or chills. Emergency department evaluation revealed significant biochemical thyrotoxicosis with suppressed TSH and markedly elevated free T4 along with sinus tachycardia, metabolic derangements and elevated lactate, prompting admission for further management. Patient denies chest pain or shortness and breath. Patient remains alert and oriented, afebrile and hemodynamically stable. Urine toxicology is positive for THC raising concern for possible contribution from cannabinoid related GI symptoms. Patient reports outpatient use of methimazole but states he has not been taking it recently. 06/09-patient was seen at the bedside, stable and oriented. Early this morning had nausea and vomitings, which has improved. Suspected cannabinoid hyperemesis syndrome, patient says his last smoke was 5 days ago. His urine ketones were positive, probable starvation ketosis. Started on D5 NS, and clear liquid diets advance as tolerated. Continuing on methimazole and propranolol. 06/10/2025: He was AAO x3. overnight event.. He will complain of mild itchy rashes on the body. He is hemodynamically stable with blood pressure 157/95. Remarkable for potassium 3.9, bicarbonate , ketone 4, magnesium 1.8, phosphorus 2.6. He is treated for thyrotoxicosis with methimazole and propranolol. For starvation ketosis we have started him on D5 NS at 100 mL/hour. Looking at his clinical picture, we are also considering chances of having refeeding syndrome.. We will aggressively replete electrolytes and keep eye on them. We will consult nutrition for gradual advancement of the diet. We will get Endocrinology board. We will keep eye on EKG with ongoing multiple electrolyte abnormalities. For the itchy rash we will give him 50 mg of oral Benadryl and see the response. 06/11/2025: Patient was evaluated this morning. He has been complaining of abdominal pain throughout the night and asking for medications especially opioid. He was given 1 dose of 0.5 mg of Dilaudid which helped him a bit and then again he started a morning medications. On my evaluation he was complaining out of pain which was not consistent with the physical examination. We ordered amylase, lipase, troponin I, EKG , all of these were normal. We also gave him1 dose of Maalox and Ativan. Patient still screaming to get narcotic. Patient was also allergic to morphine as he developed rashes in the ED. we advised the patient that he he can not be on narcotic and we will give some alternative medications for him. He kept on insisting for the narcotic. We also had a plan to get CT abdomen pelvis with and without contrast and chest x- ray. I again went and talked to the patient with the plan for the management but patient insisted on leaving the hospital. I explained him the harm of leaving the hospital without completion of treatment which he understood and verbalized but he left against medical advice. Please we advised him to take propranolol 20 mg 3 times a day and methimazole 10 mg3 times a day daily until he see his PCP. We have sent the medications to his pharmacy as well. [employer] Operator(s): Endocrinology consult: ASSESSMENT: Hyperthyroidism noncompliant with medication methimazole-no thyroid storm he has hyperthyroidism for many years and use take methimazole 10 mg tid for many years but ran out recently. denies goiter or exophthalmos.weight loss of more than 20 lbs weight due to hyperthyroidism. nausea/vomiting resolved. he is AAOX3 and tolerates po intake now. Dehydration POA improving Hyponatremia likely due to dehydration- improving Marijuana use Tobacco use PLAN: adjust methimazole 10 mg tid. repeat thyroid labs in 1 month. recommend thyroid u/s patient was educated that will benefit from definitive hyperthyroidism treatment as outpatient. Vital Signs Assessment/Plan: ASSESSMENT: Thyrotoxicosis, POA Abdominal pain, POA KETONEMIA, POA Dehydration with lactic acidosis, POA Tachycardia, POA Mild hyponatremia, POA Elevated creatinine kinase, POA Marijuana use, possible cannabinoid hyperemesis, POA Medical noncompliance Hypertension Electrolyte abnormality Discharge Instructions: The patient left against the medical advice, however he was advised to take methimazole 10 mg 3 times a day and propranolol 20 mg 3 times a day. The medications was sent to his pharmacy and he was made aware of that. Home Medications: Active Scripts Amlodipine Besylate (Norvasc 5Mg Tab) 5 Mg Tablet, 5 MG PO DAILY for 30 Days, #30 TAB 2 Refills Prov:JEOVANNY LEW MD 05/03/25 New Medications: Methimazole (Methimazole) 10 Mg Tablet 1 TAB PO TID for 30 Days, #90 TAB 0 Refills Propranolol HCl (Propranolol HCl) 20 Mg Tablet 20 MG PO TID for 30 Days, #90 TAB Continued Medications: Amlodipine Besylate (Norvasc 5Mg Tab) 5 Mg Tablet 5 MG PO DAILY for 30 Days, #30 TAB 2 Refills Time spent arranging discharge: 1-30 minutes ATTESTATION BY PHYSICIAN I have seen and examined the patient. I reviewed the documentation, medical decision making, and treatment plan as noted by the resident physician above. I agree with the findings and plan of care. Rashad Stephenson IV, MD, SUNIL MD Jun 11, 2025 17:22
== END 2025-06-11 12:18 | disposition left against medical advice (07) | DRG 427 ==
LOC: EDH 17:26 → EDHIP 20:49 → 3BH 06-09 15:55
PROVIDERS: ADMIT Internal Medicine; ATTEND Internal Medicine
DX: E05.90 Thyrotoxicosis, unspecified without thyrotoxic crisis or storm (principal); E87.20 Acidosis, unspecified; E44.0 Moderate protein-calorie malnutrition; E87.1 Hypo-osmolality and hyponatremia; J44.89 Other specified chronic obstructive pulmonary disease; I10 Essential (primary) hypertension; E11.9 Type 2 diabetes mellitus without complications; R00.0 Tachycardia, unspecified; E86.0 Dehydration; Z53.29 Procedure and treatment not carried out because of patient's decision for other reasons; F17.210 Nicotine dependence, cigarettes, uncomplicated; Z79.899 Other long term (current) drug therapy; Z86.73 Personal history of transient ischemic attack (TIA), and cerebral infarction without residual deficits; Z88.5 Allergy status to narcotic agent; Z91.148 Patient's other noncompliance with medication regimen for other reason; Z68.1 Body mass index [BMI] 19.9 or less, adult
CPT/HCPCS: 36415; 80048; 80305; 81003; 82010; 82550; 83605; 83690; 83735; 84100; 84439; 84443; 84481; 84484; 85025; 87040; 87086; 93005; 96360; 96361; 99285; G0378; J0360; J1171; J1200; J1650; J2270; J2405; J3475; Q0163